=== PATIENT | female | born 1955 | race Caucasian/White ===

== ENCOUNTER 2017-07-02 15:48 | Inpatient (IN) | payer MEDICARE, MEDICAID ==
[~2017-07-02] VITALS: Ht 154.9 cm; Wt 70.9 kg
[~2017-07-02 15:48] MED LIST: ASPI-231 PO; CARI-277 PO; CITA20TA3 GT; CLOP75TA41 PO; FER325T PO; FURO20TA3 PO; GABA300C10 PO; LIDO5DIS21 TOP; LORA-352 PO; MORP30TA PO; NITR400A5 SL; NOR10T GT; SIMV-8 PO; ZOLP10TA6 PO
[2017-07-02 16:52] LABS: Eosinophils # (auto) 0.1 uL; Monocytes # (auto) 0.8 uL; Nucleated Red Blood Cells % 0.1 %
[2017-07-02 16:54] LABS: Basophils # (auto) 0 uL; Basophils % (auto) 0.3 % (0.0-2.0); Eosinophils % (auto) 0.9 % (0.0-7.0); Hematocrit 36.7 % (36.0-46.0); Lymphocytes # (auto) 2.5 uL; Lymphocytes % (auto) 24.6 % (10.0-50.0); Mean Corpuscular Hemoglobin 26.6 pg (28.0-32.0); Mean Corpuscular Hgb Conc. 32.6 g/dL (32.0-36.0); Mean Corpuscular Volume 81.5 fL (80.0-100.0); Monocytes % (auto) 7.9 % (0.0-12.0); Neutrophils # (auto) 6.6 uL; Neutrophils % (auto) 66.3 % (37.0-80.0); Platelet Count (auto) 367 10^3/uL (140-450); Red Blood Cells 4.51 10^6/uL (4.0-5.20); Red Cell Distribution Width 15.4 % (11.8-14.3)
[2017-07-02 17:06] LABS: Alanine Aminotransferase 74 U/L (13-56); Alkaline Phosphatase 151 U/L (45-117); Anion Gap 10 (5-15); Aspartate Aminotransferase 100 U/L (15-37); BUN/Creatinine Ratio 11.9; Bilirubin, Total 0.4 mg/dL (0.2-1.0); Blood Urea Nitrogen 10 mg/dL (7-18); Calcium 9.5 mg/dL (8.5-10.1); Carbon Dioxide 25 mmol/L (21-32); Chloride 104 mmol/L (98-107); GFR African American 89 mL/min; GFR Non-African American 74 mL/min; Glucose 120 mg/dL (74-106); Magnesium 2.2 mg/dL (1.6-2.6); Potassium 4.2 mmol/L (3.5-5.1); Sodium 139 mmol/L (136-145); Total Protein 7.7 g/dL (6.4-8.2)
[2017-07-02] MEDS ORDERED: LEVETIRACETAM 500 MG TAB PO ONE (23:00)
[2017-07-02] MEDS ORDERED: traMADol HCL 50 MG TAB PO PRN (23:00)
[2017-07-03 06:21] LABS: Basophils # (auto) 0.1 uL; Eosinophils # (auto) 0.2 uL; Eosinophils % (auto) 3.3 % (0.0-7.0); Lymphocytes # (auto) 2.7 uL; Monocytes # (auto) 0.5 uL; Nucleated Red Blood Cells % 0.1 %
[2017-07-03 06:23] LABS: Basophils % (auto) 1.2 % (0.0-2.0); Hematocrit 32.6 % (36.0-46.0); Hemoglobin 10.7 g/dL (12.2-16.2); Lymphocytes % (auto) 45.4 % (10.0-50.0); Mean Corpuscular Hemoglobin 26.8 pg (28.0-32.0); Mean Corpuscular Hgb Conc. 32.7 g/dL (32.0-36.0); Mean Corpuscular Volume 81.9 fL (80.0-100.0); Monocytes % (auto) 8.9 % (0.0-12.0); Neutrophils # (auto) 2.5 uL; Neutrophils % (auto) 41.2 % (37.0-80.0); Platelet Count (auto) 292 10^3/uL (140-450); Red Blood Cells 3.98 10^6/uL (4.0-5.20); Red Cell Distribution Width 15.1 % (11.8-14.3); White Blood Cell 5.9 10^3/uL (4.4-10.8)
[2017-07-03 06:43] LABS: Albumin 3.2 g/dL (3.4-5.0); BUN/Creatinine Ratio 23.9; Bilirubin, Total 0.3 mg/dL (0.2-1.0); Calcium 8.6 mg/dL (8.5-10.1); Total Protein 6.3 g/dL (6.4-8.2)
[2017-07-03] MEDS: FERROUS SULFATE 325 MG TAB PO SCH ×2 (08:05→18:00)
[2017-07-03 09:05] VITALS: BP 102/73
[2017-07-03 09:29] VITALS: BP 102/73
[2017-07-03] MEDS ORDERED: LEVE500T22 PO (09:43)
[2017-07-03] MEDS ORDERED: DIVA500T53 PO (09:43)
[2017-07-03] MEDS ORDERED: BACL10TA PO (09:43)
[2017-07-03] MEDS: ASPirin 81 mg TAB PO SCH (09:45)
[2017-07-03] MEDS: CLOPIDOGREL BISULFATE 75 MG TAB PO SCH (09:46)
[2017-07-03] MEDS: FAMOTIDINE 20 MG TAB PO SCH ×2 (09:46→21:24)
[2017-07-03] MEDS: FUROSEMIDE 20 MG TAB PO SCH (09:46)
[2017-07-03] MEDS: CITALOPRAM HYDROBR 20 MG TAB PO SCH (09:46)
[2017-07-03] MEDS: ENOXAPARIN SOD 40 MG/0.4 ML SYRINGE SC SCH (09:47)
[2017-07-03] MEDS: LEVETIRACETAM 500 MG TAB PO SCH ×2 (09:47→21:24)
[2017-07-03 09:58] LABS: Urine Bacteria FEW /hpf (None Seen); Urine Blood Negative /uL (Negative); Urine Mucus FEW (None Seen); Urine Specific Gravity 1.015 (1.001-1.035); Urine WBC 10 /hpf (0 - 5)
[2017-07-03 11:52] VITALS: BP 104/71
[2017-07-03] MEDS: HYDROcodone-ACET 5/325MG TAB PO PRN ×3 (12:05→22:25)
[2017-07-03] MEDS: CARISOPRODOL 350 MG TAB PO PRN (16:02)
[2017-07-03 17:00] VITALS: BP 113/70
[2017-07-03] MEDS ORDERED: LORazepam 2MG/ML-1ML VIAL IV PRN (21:00)
[2017-07-03 21:16] LABS: Cholesterol 180 mg/dL (< 200); HDL Cholesterol 75 mg/dL (40-59); LDL Cholesterol 101 mg/dL (< 100); Triglycerides 76 mg/dL (< 150)
[2017-07-03] MEDS: ATORVASTATIN 20 MG TAB PO SCH (21:24)
[2017-07-03] MEDS: TEMAZEPAM 15 MG CAP PO PRN (21:25)
[2017-07-03 21:54] VITALS: BP 94/60
[2017-07-04] MEDS: HYDROcodone-ACET 5/325MG TAB PO PRN ×4 (04:41→21:28)
[2017-07-04 05:00] VITALS: BP 88/55
[2017-07-04 06:20] VITALS: BP 94/57
[2017-07-04] MEDS: CARISOPRODOL 350 MG TAB PO PRN (08:05)
[2017-07-04] MEDS: FERROUS SULFATE 325 MG TAB PO SCH ×2 (08:05→17:37)
[2017-07-04 09:00] VITALS: BP 99/71
[2017-07-04] MEDS: CLOPIDOGREL BISULFATE 75 MG TAB PO SCH (09:47)
[2017-07-04] MEDS: ENOXAPARIN SOD 40 MG/0.4 ML SYRINGE SC SCH (09:47)
[2017-07-04] MEDS: LEVETIRACETAM 500 MG TAB PO SCH ×2 (09:48→21:27)
[2017-07-04] MEDS: ASPirin 81 mg TAB PO SCH (09:50)
[2017-07-04] MEDS: FUROSEMIDE 20 MG TAB PO SCH (09:50)
[2017-07-04] MEDS: FAMOTIDINE 20 MG TAB PO SCH ×2 (09:50→21:27)
[2017-07-04] MEDS: CITALOPRAM HYDROBR 20 MG TAB PO SCH (09:50)
[2017-07-04 13:00] VITALS: BP 104/64
[2017-07-04 17:00] VITALS: BP 91/56
[2017-07-04] MEDS: ATORVASTATIN 20 MG TAB PO SCH (21:27)
[2017-07-04 21:30] VITALS: BP 109/67
[2017-07-04] MEDS: TEMAZEPAM 15 MG CAP PO PRN (23:42)
[2017-07-05] MEDS: ONDANSETRON HCL 4 MG/2 ML VIAL IV PRN ×2 (02:37→13:53)
[2017-07-05] MEDS: MORPHINE SULFATE 4 MG/ML SYR/VIAL IV PRN (02:38)
[2017-07-05 04:44] VITALS: BP 92/53
[2017-07-05] MEDS: HYDROcodone-ACET 5/325MG TAB PO PRN ×3 (05:54→22:05)
[2017-07-05] MEDS: FERROUS SULFATE 325 MG TAB PO SCH ×2 (08:33→18:00)
[2017-07-05 09:00] VITALS: BP 90/47
[2017-07-05] MEDS: FUROSEMIDE 20 MG TAB PO SCH (10:00)
[2017-07-05] MEDS: CLOPIDOGREL BISULFATE 75 MG TAB PO SCH (10:28)
[2017-07-05] MEDS: CITALOPRAM HYDROBR 20 MG TAB PO SCH (10:29)
[2017-07-05] MEDS: LEVETIRACETAM 500 MG TAB PO SCH ×2 (10:29→22:05)
[2017-07-05] MEDS: FAMOTIDINE 20 MG TAB PO SCH ×2 (10:29→22:05)
[2017-07-05] MEDS: ASPirin 81 mg TAB PO SCH (10:30)
[2017-07-05] MEDS: ENOXAPARIN SOD 40 MG/0.4 ML SYRINGE SC SCH (10:31)
[2017-07-05 13:00] VITALS: BP 97/57
[2017-07-05] MEDS: NITROGLYCERIN 0.4 MG SL TAB SL PRN ×3 (13:24→13:41)
[2017-07-05 15:11] LABS: Prothrombin Time 10.9 sec (9.37-12.3)
[2017-07-05 17:04] VITALS: BP 94/69
[2017-07-05 22:00] VITALS: BP 103/66
[2017-07-05] MEDS: ATORVASTATIN 20 MG TAB PO SCH (22:02)
[2017-07-05] MEDS: TEMAZEPAM 15 MG CAP PO PRN (22:06)
[2017-07-06] MEDS: MORPHINE SULFATE 4 MG/ML SYR/VIAL IV PRN ×2 (01:20→08:31)
[2017-07-06] MEDS: NITROGLYCERIN 0.4 MG SL TAB SL PRN ×2 (01:21→01:37)
[2017-07-06 05:47] VITALS: BP 89/62
[2017-07-06 05:51] LABS: Basophils # (auto) 0 uL; Basophils % (auto) 0.9 % (0.0-2.0); Hemoglobin 11.6 g/dL (12.2-16.2); Lymphocytes # (auto) 2.5 uL; Mean Corpuscular Hemoglobin 26.5 pg (28.0-32.0); Mean Corpuscular Hgb Conc. 31.5 g/dL (32.0-36.0); Monocytes # (auto) 0.4 uL; Monocytes % (auto) 8.2 % (0.0-12.0); Neutrophils # (auto) 1.4 uL; Red Cell Distribution Width 15.1 % (11.8-14.3)
[2017-07-06 05:54] LABS: Eosinophils # (auto) 0.3 uL; Eosinophils % (auto) 5.8 % (0.0-7.0); Hematocrit 36.8 % (36.0-46.0); Lymphocytes % (auto) 53.9 % (10.0-50.0); Mean Corpuscular Volume 83.9 fL (80.0-100.0); Neutrophils % (auto) 31.2 % (37.0-80.0); Nucleated Red Blood Cells % 0.1 %; Platelet Count (auto) 316 10^3/uL (140-450); Red Blood Cells 4.38 10^6/uL (4.0-5.20); White Blood Cell 4.6 10^3/uL (4.4-10.8)
[2017-07-06 06:16] LABS: Alanine Aminotransferase 35 U/L (13-56); Albumin 3.1 g/dL (3.4-5.0); Anion Gap 8 (5-15); Aspartate Aminotransferase 40 U/L (15-37); BUN/Creatinine Ratio 17.6; Blood Urea Nitrogen 12 mg/dL (7-18); Calcium 8.2 mg/dL (8.5-10.1); Carbon Dioxide 24 mmol/L (21-32); Chloride 106 mmol/L (98-107); GFR African American 114 mL/min; GFR Non-African American 94 mL/min; Glucose 85 mg/dL (74-106); Potassium 4.3 mmol/L (3.5-5.1); Sodium 138 mmol/L (136-145)
[2017-07-06 06:18] LABS: Alkaline Phosphatase 120 U/L (45-117); Bilirubin, Total 0.2 mg/dL (0.2-1.0); Total Protein 6.4 g/dL (6.4-8.2)
[2017-07-06 08:00] VITALS: BP 92/54
[2017-07-06] MEDS: FERROUS SULFATE 325 MG TAB PO SCH ×2 (08:00→19:50)
[2017-07-06] MEDS: CLOPIDOGREL BISULFATE 75 MG TAB PO SCH ×2 (08:32→09:34)
[2017-07-06] MEDS: ASPirin 81 mg TAB PO SCH ×2 (08:32→09:34)
[2017-07-06] MEDS: ENOXAPARIN SOD 40 MG/0.4 ML SYRINGE SC SCH (08:33)
[2017-07-06 09:00] VITALS: BP 94/60
[2017-07-06] MEDS: FAMOTIDINE 20 MG TAB PO SCH ×2 (09:32→22:47)
[2017-07-06] MEDS: CARISOPRODOL 350 MG TAB PO PRN (09:32)
[2017-07-06] MEDS: LEVETIRACETAM 500 MG TAB PO SCH ×2 (09:32→22:47)
[2017-07-06] MEDS: CITALOPRAM HYDROBR 20 MG TAB PO SCH (09:33)
[2017-07-06] MEDS: FUROSEMIDE 20 MG TAB PO SCH (09:34)
[2017-07-06 12:00] VITALS: BP 91/58
[2017-07-06] MEDS ORDERED: LIDOCAINE HCL 2 %PF INJ 10ML AMP IJ ONE (13:56)
[2017-07-06] MEDS ORDERED: IOHEXOL 350 MG/ML 100ML IJ ONE (13:56)
[2017-07-06] MEDS ORDERED: MIDAZOLAM HCL 1MG/1ML-2 ML VIAL ONE (14:18)
[2017-07-06] MEDS ORDERED: fentaNYL CITRATE 100 MCG/2 ML VL ONE (14:18)
[2017-07-06] MEDS ORDERED: SODIUM CHL 0.9% 50 ML ONE (14:19)
[2017-07-06] MEDS ORDERED: ANGIOMAX 250 MG VIAL IV ONE (14:19)
[2017-07-06] MEDS ORDERED: CLOPIDOGREL 300 MG TAB ONE (14:41)
[2017-07-06] MEDS: HYDROcodone-ACET 5/325MG TAB PO PRN ×2 (17:09→23:08)
[2017-07-06] MEDS: TEMAZEPAM 15 MG CAP PO PRN (22:47)
[2017-07-06] MEDS: ATORVASTATIN 20 MG TAB PO SCH (22:47)
[2017-07-07 04:27] VITALS: BP 91/59
[2017-07-07] MEDS: FERROUS SULFATE 325 MG TAB PO SCH ×2 (08:16→18:20)
[2017-07-07] MEDS: HYDROcodone-ACET 5/325MG TAB PO PRN ×2 (08:16→16:15)
[2017-07-07 09:00] VITALS: BP 90/68
[2017-07-07] MEDS: CITALOPRAM HYDROBR 20 MG TAB PO SCH (10:00)
[2017-07-07] MEDS: ASPirin 81 mg TAB PO SCH (10:00)
[2017-07-07] MEDS: CLOPIDOGREL BISULFATE 75 MG TAB PO SCH (10:00)
[2017-07-07] MEDS: LEVETIRACETAM 500 MG TAB PO SCH ×2 (10:00→21:32)
[2017-07-07] MEDS: FAMOTIDINE 20 MG TAB PO SCH ×2 (10:02→21:32)
[2017-07-07] MEDS: FUROSEMIDE 20 MG TAB PO SCH (10:03)
[2017-07-07] MEDS: ENOXAPARIN SOD 40 MG/0.4 ML SYRINGE SC SCH (10:04)
[2017-07-07] MEDS: CARISOPRODOL 350 MG TAB PO PRN (10:04)
[2017-07-07 12:00] VITALS: BP 94/63
[2017-07-07] MEDS ORDERED: KETOROLAC TROMETH 30 MG/ML 1ML VIAL IV PRN (15:00)
[2017-07-07 16:00] VITALS: BP 97/72
[2017-07-07] MEDS: ONDANSETRON HCL 4 MG/2 ML VIAL IV PRN (20:21)
[2017-07-07] MEDS: ATORVASTATIN 20 MG TAB PO SCH (21:32)
[2017-07-07] MEDS: TEMAZEPAM 15 MG CAP PO PRN (21:33)
[2017-07-07 22:00] VITALS: BP 104/58
[2017-07-08] MEDS: HYDROcodone-ACET 5/325MG TAB PO PRN ×2 (03:06→13:04)
[2017-07-08 05:00] VITALS: BP 112/77
[2017-07-08] MEDS: FERROUS SULFATE 325 MG TAB PO SCH (08:51)
[2017-07-08] MEDS: FAMOTIDINE 20 MG TAB PO SCH (08:56)
[2017-07-08] MEDS: ENOXAPARIN SOD 40 MG/0.4 ML SYRINGE SC SCH (08:56)
[2017-07-08] MEDS: CITALOPRAM HYDROBR 20 MG TAB PO SCH (08:57)
[2017-07-08] MEDS: CLOPIDOGREL BISULFATE 75 MG TAB PO SCH (08:58)
[2017-07-08] MEDS: ASPirin 81 mg TAB PO SCH (08:58)
[2017-07-08] MEDS: LEVETIRACETAM 500 MG TAB PO SCH (08:58)
[2017-07-08] MEDS: FUROSEMIDE 20 MG TAB PO SCH (09:00)
[2017-07-08 09:18] VITALS: BP 115/69
[2017-07-08 12:34] VITALS: BP 109/75
[2017-07-08] MEDS ORDERED: DIVA250T6 PO (15:10)
[2017-07-08] MEDS ORDERED: KEP500T PO (15:10)
[2017-07-08 16:06] VITALS: BP 109/75
== END 2017-07-08 14:38 | disposition home or self-care (01) | DRG 247 ==
LOC: ER 15:48 → TELE 15:49 → TELE-WESTW 07-03 08:06
PROVIDERS: ADMIT Nurse Practitioner; ATTEND Internal Medicine Pulmonary Disease
PROC: 027034Z Dilation of Coronary Artery, One Artery with Drug-eluting Intraluminal Device, Percutaneous Approach (ICD-10-PCS; principal; 2017-07-06)
PROC: B240ZZ3 Ultrasonography of Single Coronary Artery, Intravascular (ICD-10-PCS; 2017-07-06)
PROC: 4A023N7 Measurement of Cardiac Sampling and Pressure, Left Heart, Percutaneous Approach (ICD-10-PCS; 2017-07-06)
PROC: B2111ZZ Fluoroscopy of Multiple Coronary Arteries using Low Osmolar Contrast (ICD-10-PCS; 2017-07-06)
PROC: B2151ZZ Fluoroscopy of Left Heart using Low Osmolar Contrast (ICD-10-PCS; 2017-07-06)
DX: I25.110 Atherosclerotic heart disease of native coronary artery with unstable angina pectoris (principal); E44.0 Moderate protein-calorie malnutrition; G40.409 Other generalized epilepsy and epileptic syndromes, not intractable, without status epilepticus; K74.60 Unspecified cirrhosis of liver; G62.9 Polyneuropathy, unspecified; S71.011A Laceration without foreign body, right hip, initial encounter; S71.012A Laceration without foreign body, left hip, initial encounter; S00.83XA Contusion of other part of head, initial encounter; D64.9 Anemia, unspecified; W18.39XA Other fall on same level, initial encounter; B19.20 Unspecified viral hepatitis C without hepatic coma; E78.5 Hyperlipidemia, unspecified; G89.4 Chronic pain syndrome; E66.9 Obesity, unspecified; I10 Essential (primary) hypertension; G47.00 Insomnia, unspecified; S00.31XA Abrasion of nose, initial encounter; J45.909 Unspecified asthma, uncomplicated; F11.90 Opioid use, unspecified, uncomplicated; K21.9 Gastro-esophageal reflux disease without esophagitis; Z79.82 Long term (current) use of aspirin; Z79.899 Other long term (current) drug therapy; I25.2 Old myocardial infarction; Z83.3 Family history of diabetes mellitus; Z90.49 Acquired absence of other specified parts of digestive tract; Z90.710 Acquired absence of both cervix and uterus; Z95.0 Presence of cardiac pacemaker; Z95.5 Presence of coronary angioplasty implant and graft; Z98.1 Arthrodesis status; Z98.84 Bariatric surgery status; Z68.29 Body mass index [BMI] 29.0-29.9, adult; Y93.89 Activity, other specified; Y92.89 Other specified places as the place of occurrence of the external cause; Y99.8 Other external cause status; Z90.89 Acquired absence of other organs; Z88.1 Allergy status to other antibiotic agents; Z88.8 Allergy status to other drugs, medicaments and biological substances; Z88.6 Allergy status to analgesic agent; Z91.018 Allergy to other foods; Z80.8 Family history of malignant neoplasm of other organs or systems; Z71.3 Dietary counseling and surveillance
CPT/HCPCS: 36415; 70450; 70480; 70486; 71045; 80053; 80061; 81001; 83735; 84484; 85025; 85610; 92928; 92978; 93005; 93306; 93458; 93886; 95819; 99152; C1874; J1885; J2250; J2405

== ENCOUNTER 2017-07-15 15:51 | Inpatient (IN) | payer MEDICARE, MEDICAID ==
[~2017-07-15] VITALS: Ht 154.9 cm; Wt 73.4 kg
[~2017-07-15 15:51] MED LIST changes: +BACL10TA PO; +DIVA250T6 PO; +KEP500T PO
[2017-07-15 16:45] LABS: Eosinophils # (auto) 0 uL; Lymphocytes # (auto) 1.1 uL; Monocytes # (auto) 0.3 uL; Nucleated Red Blood Cells % 0.1 %; White Blood Cell 7.6 10^3/uL (4.4-10.8)
[2017-07-15 16:46] LABS: Basophils # (auto) 0 uL; Basophils % (auto) 0.5 % (0.0-2.0); Eosinophils % (auto) 0.6 % (0.0-7.0); Hematocrit 40.3 % (36.0-46.0); Lymphocytes % (auto) 14.6 % (10.0-50.0); Mean Corpuscular Hemoglobin 27.3 pg (28.0-32.0); Mean Corpuscular Hgb Conc. 32.3 g/dL (32.0-36.0); Mean Corpuscular Volume 84.3 fL (80.0-100.0); Monocytes % (auto) 4.6 % (0.0-12.0); Neutrophils % (auto) 79.7 % (37.0-80.0); Platelet Count (auto) 328 10^3/uL (140-450); Red Blood Cells 4.78 10^6/uL (4.0-5.20); Red Cell Distribution Width 16.7 % (11.8-14.3)
[2017-07-15 17:06] LABS: Alanine Aminotransferase 15 U/L (13-56); Albumin 4.1 g/dL (3.4-5.0); Alkaline Phosphatase 109 U/L (45-117); Anion Gap 8 (5-15); Aspartate Aminotransferase 10 U/L (15-37); BUN/Creatinine Ratio 9.7; Bilirubin, Total 0.3 mg/dL (0.2-1.0); Blood Alcohol < 3.0 mg/dL (0-5); Blood Urea Nitrogen 7 mg/dL (7-18); Carbon Dioxide 25 mmol/L (21-32); Chloride 113 mmol/L (98-107); GFR African American 106 mL/min; GFR Non-African American 88 mL/min; Glucose 112 mg/dL (74-106); Potassium 3.9 mmol/L (3.5-5.1); Sodium 146 mmol/L (136-145); Total Protein 7.3 g/dL (6.4-8.2)
[2017-07-15] MEDS ORDERED: SODIUM CHLORIDE 0.9% 1,000 ML IV ONE (18:45)
[2017-07-15 19:03] LABS: Urine Bacteria FEW /hpf (None Seen); Urine Blood Negative /uL (Negative); Urine Hyaline Cast FEW /lpf (0 - 2); Urine Mucus FEW (None Seen); Urine Specific Gravity 1.019 (1.001-1.035); Urine WBC 6 /hpf (0 - 5)
[2017-07-15 19:13] LABS: Alcohol, Urine < 3.0 mg/dL (0-5); Amphetamine Screen, Urine NEGATIVE (NEGATIVE); Barbiturate Scree,Urine NEGATIVE (NEGATIVE); Benzodiazephine Screen, Urine NEGATIVE (NEGATIVE); Cannabinoid Screen, Urine NEGATIVE (NEGATIVE); Cocaine Screen, Urine NEGATIVE (NEGATIVE); Opiate Scree,Urine NEGATIVE (NEGATIVE); Phencyclidine Screen, Urine NEGATIVE (NEGATIVE)
[2017-07-15] MEDS ORDERED: cefTRIAXone SOD 1,000 MG VL IM ONE (22:45)
[2017-07-16] MEDS ORDERED: ACETAMINOPHEN 500 MG TAB PO PRN
[2017-07-16] MEDS ORDERED: ONDANSETRON HCL 4 MG/2 ML VIAL IV PRN
[2017-07-16] MEDS ORDERED: cefTRIAXone 1GM/10ml IVPUSH 10 ML IV ONE (00:30)
[2017-07-16 03:18] VITALS: BP 133/80
[2017-07-16] MEDS: MORPHINE SULFATE 4 MG/ML SYR/VIAL IV PRN ×5 (03:47→22:46)
[2017-07-16] MEDS ORDERED: INFLUENZA QUAD 2017-2018 0.5 ML SYRG IM ONE (04:45)
[2017-07-16 05:00] VITALS: BP 102/62
[2017-07-16 06:09] LABS: Basophils # (auto) 0 uL; Basophils % (auto) 0.5 % (0.0-2.0); Eosinophils # (auto) 0.1 uL; Eosinophils % (auto) 1.5 % (0.0-7.0); Hematocrit 32.5 % (36.0-46.0); Hemoglobin 10.4 g/dL (12.2-16.2); Lymphocytes # (auto) 1.7 uL; Lymphocytes % (auto) 29.2 % (10.0-50.0); Mean Corpuscular Volume 84.4 fL (80.0-100.0); Monocytes # (auto) 0.4 uL; Monocytes % (auto) 7.8 % (0.0-12.0); Neutrophils # (auto) 3.5 uL; Nucleated Red Blood Cells % 0.1 %; Platelet Count (auto) 276 10^3/uL (140-450); Red Blood Cells 3.85 10^6/uL (4.0-5.20); Red Cell Distribution Width 17.2 % (11.8-14.3); White Blood Cell 5.7 10^3/uL (4.4-10.8)
[2017-07-16 06:13] LABS: BUN/Creatinine Ratio 15.8; Calcium 8.1 mg/dL (8.5-10.1); Potassium 3.8 mmol/L (3.5-5.1)
[2017-07-16] MEDS: HYDROcodone-ACET 5/325MG TAB PO PRN ×2 (06:28→11:09)
[2017-07-16] MEDS: GABAPENTIN 300 MG CAP PO SCH ×3 (06:40→22:01)
[2017-07-16 09:00] VITALS: BP 108/56
[2017-07-16] MEDS: ASPirin-EC 81 mg tab PO SCH (11:08)
[2017-07-16] MEDS: CLOPIDOGREL BISULFATE 75 MG TAB PO SCH (11:08)
[2017-07-16] MEDS: LEVETIRACETAM 500 MG TAB PO SCH ×2 (11:08→22:00)
[2017-07-16 13:00] VITALS: BP 100/69
[2017-07-16 17:03] VITALS: BP 95/53
[2017-07-16 21:27] VITALS: BP 101/68
[2017-07-16] MEDS: cefTRIAXone 1GM/10ml IVPUSH 10 ML IV SCH (22:00)
[2017-07-17] MEDS: MORPHINE SULFATE 4 MG/ML SYR/VIAL IV PRN ×2 (03:06→17:17)
[2017-07-17 05:08] VITALS: BP 91/49
[2017-07-17] MEDS: GABAPENTIN 300 MG CAP PO SCH ×3 (06:31→23:08)
[2017-07-17 06:59] LABS: BUN/Creatinine Ratio 14.9; Calcium 7.9 mg/dL (8.5-10.1)
[2017-07-17 07:48] LABS: Basophils # (auto) 0 uL; Basophils % (auto) 0.7 % (0.0-2.0); Eosinophils # (auto) 0.2 uL; Eosinophils % (auto) 3.8 % (0.0-7.0); Hematocrit 28.7 % (36.0-46.0); Hemoglobin 9.2 g/dL (12.2-16.2); Lymphocytes % (auto) 38.1 % (10.0-50.0); Mean Corpuscular Hemoglobin 27.1 pg (28.0-32.0); Mean Corpuscular Hgb Conc. 32.2 g/dL (32.0-36.0); Mean Corpuscular Volume 84.3 fL (80.0-100.0); Monocytes # (auto) 0.5 uL; Monocytes % (auto) 9.3 % (0.0-12.0); Neutrophils # (auto) 2.5 uL; Neutrophils % (auto) 48.1 % (37.0-80.0); Nucleated Red Blood Cells % 0.1 %; Platelet Count (auto) 238 10^3/uL (140-450); Red Cell Distribution Width 16.9 % (11.8-14.3); White Blood Cell 5.1 10^3/uL (4.4-10.8)
[2017-07-17 09:00] VITALS: BP 110/50
[2017-07-17] MEDS: ASPirin-EC 81 mg tab PO SCH (09:29)
[2017-07-17] MEDS: CLOPIDOGREL BISULFATE 75 MG TAB PO SCH (09:29)
[2017-07-17] MEDS: LEVETIRACETAM 500 MG TAB PO SCH ×2 (09:30→23:08)
[2017-07-17 13:00] VITALS: BP 132/73
[2017-07-17 17:00] VITALS: BP 94/59
[2017-07-17 20:00] VITALS: BP 101/66
[2017-07-17 21:38] VITALS: BP 101/6
[2017-07-17] MEDS: cefTRIAXone 1GM/10ml IVPUSH 10 ML IV SCH (23:08)
[2017-07-18] VITALS (10 sets, daily range): BP systolic 68–124; BP diastolic 34–73
[2017-07-18] MEDS: MORPHINE SULFATE 4 MG/ML SYR/VIAL IV PRN ×4 (01:14→22:10)
[2017-07-18] MEDS ORDERED: TEMAZEPAM 15 MG CAP PO ONE (01:45)
[2017-07-18] MEDS ORDERED: LACTULOSE 20Gm/30ML SOLN PO PRN (01:45)
[2017-07-18] MEDS: GABAPENTIN 300 MG CAP PO SCH ×3 (06:00→22:37)
[2017-07-18] MEDS ORDERED: SODIUM CHLORIDE 0.9% 500 ML IV ONE (06:15)
[2017-07-18] MEDS: CLOPIDOGREL BISULFATE 75 MG TAB PO SCH (10:50)
[2017-07-18] MEDS: LEVETIRACETAM 500 MG TAB PO SCH ×2 (10:50→22:37)
[2017-07-18] MEDS: ASPirin-EC 81 mg tab PO SCH (10:51)
[2017-07-18] MEDS ORDERED: LACTULOSE 20Gm/30ML SOLN PO ONE (13:15)
[2017-07-18 13:44] LABS: Basophils # (auto) 0.1 uL; Basophils % (auto) 1.1 % (0.0-2.0); Eosinophils # (auto) 0.2 uL; Eosinophils % (auto) 4.9 % (0.0-7.0); Hematocrit 30.9 % (36.0-46.0); Hemoglobin 9.8 g/dL (12.2-16.2); Lymphocytes # (auto) 1.9 uL; Lymphocytes % (auto) 42.9 % (10.0-50.0); Mean Corpuscular Hemoglobin 27.1 pg (28.0-32.0); Mean Corpuscular Hgb Conc. 31.6 g/dL (32.0-36.0); Mean Corpuscular Volume 85.7 fL (80.0-100.0); Monocytes # (auto) 0.4 uL; Monocytes % (auto) 9.1 % (0.0-12.0); Neutrophils # (auto) 1.8 uL; Nucleated Red Blood Cells % 0.2 %; Platelet Count (auto) 247 10^3/uL (140-450); Red Cell Distribution Width 17.2 % (11.8-14.3); White Blood Cell 4.4 10^3/uL (4.4-10.8)
[2017-07-18] MEDS: cefTRIAXone 1GM/10ml IVPUSH 10 ML IV SCH (22:37)
[2017-07-19] MEDS: MORPHINE SULFATE 4 MG/ML SYR/VIAL IV PRN ×3 (02:21→11:09)
[2017-07-19 05:43] VITALS: BP 110/74
[2017-07-19] MEDS: GABAPENTIN 300 MG CAP PO SCH ×2 (06:04→14:00)
[2017-07-19 08:00] VITALS: BP 110/69
[2017-07-19 09:00] VITALS: BP 110/69
[2017-07-19] MEDS: CLOPIDOGREL BISULFATE 75 MG TAB PO SCH (10:00)
[2017-07-19] MEDS: ASPirin-EC 81 mg tab PO SCH (10:03)
[2017-07-19] MEDS: LEVETIRACETAM 500 MG TAB PO SCH (10:03)
[2017-07-19 13:00] VITALS: BP 123/74
[2017-07-19 13:44] VITALS: BP 110/69
== END 2017-07-19 14:25 | disposition home or self-care (01) | DRG 689 ==
LOC: ER 15:54 → WEST WING 15:55
PROVIDERS: ADMIT Nurse Practitioner Family; ATTEND Internal Medicine Pulmonary Disease
PROC: 3E0234Z Introduction of Serum, Toxoid and Vaccine into Muscle, Percutaneous Approach (ICD-10-PCS; principal; 2017-07-16)
DX: N39.0 Urinary tract infection, site not specified (principal); G92 Toxic encephalopathy; E87.0 Hyperosmolality and hypernatremia; I11.0 Hypertensive heart disease with heart failure; I50.9 Heart failure, unspecified; E44.1 Mild protein-calorie malnutrition; R56.9 Unspecified convulsions; S09.90XA Unspecified injury of head, initial encounter; R55 Syncope and collapse; W19.XXXA Unspecified fall, initial encounter; D64.9 Anemia, unspecified; B19.20 Unspecified viral hepatitis C without hepatic coma; E86.9 Volume depletion, unspecified; F32.9 Major depressive disorder, single episode, unspecified; S70.02XA Contusion of left hip, initial encounter; I25.10 Atherosclerotic heart disease of native coronary artery without angina pectoris; G89.29 Other chronic pain; M54.5 Low back pain; K59.00 Constipation, unspecified; Y92.009 Unspecified place in unspecified non-institutional (private) residence as the place of occurrence of the external cause; Z83.3 Family history of diabetes mellitus; Z79.899 Other long term (current) drug therapy; Z90.710 Acquired absence of both cervix and uterus; Z90.49 Acquired absence of other specified parts of digestive tract; Z91.14 Patient's other noncompliance with medication regimen; Z98.84 Bariatric surgery status; Z95.0 Presence of cardiac pacemaker; Z68.30 Body mass index [BMI] 30.0-30.9, adult; Z88.1 Allergy status to other antibiotic agents; Z88.5 Allergy status to narcotic agent; Z23 Encounter for immunization
CPT/HCPCS: 36415; 70450; 71045; 72125; 72192; 72220; 80048; 80053; 80307; 80320; 81001; 82270; 82962; 84484; 85025; 87081; 87086; 93005; 96374; 96375; J0696; J2405

== ENCOUNTER 2017-08-03 14:30 | Emergency (ER) | payer MEDICARE, MEDICAID ==
[~2017-08-03] VITALS: Ht 157.5 cm; Wt 70.3 kg
[2017-08-03 15:42] VITALS: BP 149/95
[2017-08-03 16:37] LABS: Basophils # (auto) 0 uL; Basophils % (auto) 0.8 % (0.0-2.0); Eosinophils # (auto) 0.1 uL; Eosinophils % (auto) 2.9 % (0.0-7.0); Hematocrit 34.8 % (36.0-46.0); Hemoglobin 11.1 g/dL (12.2-16.2); Lymphocytes # (auto) 1.9 uL; Lymphocytes % (auto) 41.2 % (10.0-50.0); Mean Corpuscular Hemoglobin 27.6 pg (28.0-32.0); Mean Corpuscular Hgb Conc. 31.9 g/dL (32.0-36.0); Mean Corpuscular Volume 86.6 fL (80.0-100.0); Monocytes # (auto) 0.4 uL; Monocytes % (auto) 9.4 % (0.0-12.0); Neutrophils # (auto) 2.1 uL; Neutrophils % (auto) 45.7 % (37.0-80.0); Nucleated Red Blood Cells % 0.1 %; Platelet Count (auto) 218 10^3/uL (140-450); Red Blood Cells 4.01 10^6/uL (4.0-5.20); Red Cell Distribution Width 18.1 % (11.8-14.3); White Blood Cell 4.5 10^3/uL (4.4-10.8)
[2017-08-03 16:50] LABS: Albumin 3.4 g/dL (3.4-5.0); Anion Gap 9 (5-15); BUN/Creatinine Ratio 12.7; Blood Urea Nitrogen 10 mg/dL (7-18); Calcium 8.2 mg/dL (8.5-10.1); Carbon Dioxide 23 mmol/L (21-32); Chloride 110 mmol/L (98-107); GFR African American 95 mL/min; GFR Non-African American 79 mL/min; Glucose 81 mg/dL (74-106); Potassium 3.7 mmol/L (3.5-5.1); Sodium 142 mmol/L (136-145)
[2017-08-03 16:55] LABS: Alanine Aminotransferase 10 U/L (13-56); Alkaline Phosphatase 92 U/L (45-117); Aspartate Aminotransferase 14 U/L (15-37); Bilirubin, Total 0.5 mg/dL (0.2-1.0); Total Protein 6.7 g/dL (6.4-8.2)
== END 2017-08-03 19:25 | disposition home or self-care (01) ==
LOC: EDBD 14:30 → ER 14:41
DX: S09.90XA Unspecified injury of head, initial encounter (principal); J45.909 Unspecified asthma, uncomplicated; I25.10 Atherosclerotic heart disease of native coronary artery without angina pectoris; I11.0 Hypertensive heart disease with heart failure; I50.9 Heart failure, unspecified; E78.5 Hyperlipidemia, unspecified; R42 Dizziness and giddiness; I25.2 Old myocardial infarction; Z90.49 Acquired absence of other specified parts of digestive tract; Z90.710 Acquired absence of both cervix and uterus; Z95.0 Presence of cardiac pacemaker; Z88.1 Allergy status to other antibiotic agents; Z88.6 Allergy status to analgesic agent; Z88.8 Allergy status to other drugs, medicaments and biological substances; W18.39XA Other fall on same level, initial encounter; Y93.01 Activity, walking, marching and hiking; Y92.89 Other specified places as the place of occurrence of the external cause; Y99.8 Other external cause status
CPT/HCPCS: 36415; 70450; 80053; 82962; 84484; 85025; 93005

== ENCOUNTER 2017-08-29 16:20 | Inpatient (IN) | payer MEDICARE, MEDICAID ==
[~2017-08-29] VITALS: Ht 154.9 cm; Wt 76.5 kg
[~2017-08-29 16:20] MED LIST changes: -CITA20TA3 GT; +CYCL5TAB PO; -DIVA250T6 PO; +DIVA500T53 PO; -FER325T PO; -FURO20TA3 PO; -KEP500T PO; +LEVE500T22 PO; -LIDO5DIS21 TOP; -LORA-352 PO; +LORA-622 PO; +LORA-655 PO; +MELO1TAB56 PO; -MORP30TA PO; -NITR400A5 SL; -NOR10T GT; +NOR10T PO
[2017-08-29] MEDS ORDERED: SODIUM CHLORIDE 0.9% 1,000 ML IV ONE (16:41)
[2017-08-29] MEDS ORDERED: MORPHINE SULFATE 4 MG/ML SYR/VIAL IV ONE (16:45)
[2017-08-29] MEDS ORDERED: METOCLOPRAMIDE HCL 5MG/ml INJ 2ml VIAL IV ONE (16:45)
[2017-08-29 17:20] LABS: Basophils # (auto) 0 uL; Basophils % (auto) 0.9 % (0.0-2.0); Eosinophils # (auto) 0.2 uL; Eosinophils % (auto) 3.5 % (0.0-7.0); Hematocrit 30.1 % (36.0-46.0); Hemoglobin 9.9 g/dL (12.2-16.2); Lymphocytes # (auto) 1.7 uL; Lymphocytes % (auto) 39.1 % (10.0-50.0); Mean Corpuscular Hemoglobin 27.7 pg (28.0-32.0); Mean Corpuscular Hgb Conc. 32.9 g/dL (32.0-36.0); Mean Corpuscular Volume 84.2 fL (80.0-100.0); Monocytes # (auto) 0.4 uL; Monocytes % (auto) 8.6 % (0.0-12.0); Neutrophils # (auto) 2.1 uL; Neutrophils % (auto) 47.9 % (37.0-80.0); Nucleated Red Blood Cells % 0.1 %; Platelet Count (auto) 230 10^3/uL (140-450); Red Blood Cells 3.57 10^6/uL (4.0-5.20); Red Cell Distribution Width 17.6 % (11.8-14.3); White Blood Cell 4.5 10^3/uL (4.4-10.8)
[2017-08-29 17:35] LABS: Calcium 7.8 mg/dL (8.5-10.1); Magnesium 1.9 mg/dL (1.6-2.6); Potassium 4.5 mmol/L (3.5-5.1)
[2017-08-29 17:37] LABS: BUN/Creatinine Ratio 16.7
[2017-08-29 17:41] LABS: Bilirubin, Total 0.3 mg/dL (0.2-1.0); Total Protein 6.2 g/dL (6.4-8.2)
[2017-08-29] MEDS: ATORVASTATIN 20 MG TAB PO SCH (22:00)
[2017-08-29] MEDS: LEVETIRACETAM 500 MG TAB PO SCH (22:00)
[2017-08-29] MEDS: GABAPENTIN 300 MG CAP PO SCH (22:00)
[2017-08-29] MEDS ORDERED: ONDANSETRON HCL 4 MG/2 ML VIAL IV PRN (22:15)
[2017-08-29] MEDS ORDERED: NITROGLYCERIN 0.4 MG SL TAB SL PRN (22:15)
[2017-08-29] MEDS ORDERED: ACETAMINOPHEN 325 MG TAB PO PRN (22:15)
[2017-08-29] MEDS ORDERED: MORPHINE SULFATE 4 MG/ML SYR/VIAL IV PRN (22:15)
[2017-08-30 00:10] VITALS: BP 111/74
[2017-08-30] MEDS: TEMAZEPAM 15 MG CAP PO PRN ×2 (01:01→23:20)
[2017-08-30 01:40] LABS: Urine Blood Negative /uL (Negative); Urine Specific Gravity 1.008 (1.001-1.035)
[2017-08-30 01:41] LABS: Urine Bacteria FEW /hpf (None Seen); Urine WBC 2 /hpf (0 - 5)
[2017-08-30] MEDS ORDERED: FURO20TA3 PO (01:42)
[2017-08-30] MEDS ORDERED: SIMV-8 PO (01:42)
[2017-08-30] MEDS ORDERED: CLOP75TA28 PO (01:42)
[2017-08-30] MEDS ORDERED: LORA-655 PO (01:42)
[2017-08-30 05:50] VITALS: BP 92/65
[2017-08-30 06:58] LABS: Basophils # (auto) 0 uL; Eosinophils # (auto) 0.2 uL; Mean Corpuscular Volume 85.4 fL (80.0-100.0); Monocytes # (auto) 0.4 uL; Neutrophils # (auto) 2.1 uL
[2017-08-30 07:00] LABS: Basophils % (auto) 0.7 % (0.0-2.0); Eosinophils % (auto) 3.9 % (0.0-7.0); Hemoglobin 10.6 g/dL (12.2-16.2); Lymphocytes # (auto) 2.3 uL; Lymphocytes % (auto) 46.1 % (10.0-50.0); Mean Corpuscular Hemoglobin 27.4 pg (28.0-32.0); Mean Corpuscular Hgb Conc. 32.1 g/dL (32.0-36.0); Monocytes % (auto) 7.7 % (0.0-12.0); Neutrophils % (auto) 41.6 % (37.0-80.0); Nucleated Red Blood Cells % 0.2 %; Platelet Count (auto) 205 10^3/uL (140-450); Red Blood Cells 3.87 10^6/uL (4.0-5.20); Red Cell Distribution Width 17.3 % (11.8-14.3); White Blood Cell 5.1 10^3/uL (4.4-10.8)
[2017-08-30 07:14] LABS: Potassium 4.2 mmol/L (3.5-5.1)
[2017-08-30 07:20] LABS: BUN/Creatinine Ratio 16.9; Calcium 8.6 mg/dL (8.5-10.1)
[2017-08-30 07:28] LABS: Bilirubin, Total 0.4 mg/dL (0.2-1.0); Total Protein 6.1 g/dL (6.4-8.2)
[2017-08-30 07:52] VITALS: BP 109/57
[2017-08-30] MEDS: HYDROcodone-ACET 5/325MG TAB PO PRN ×3 (07:54→20:23)
[2017-08-30] MEDS: GABAPENTIN 300 MG CAP PO SCH ×2 (10:18→21:37)
[2017-08-30] MEDS: ENOXAPARIN SOD 40 MG/0.4 ML SYRINGE SC SCH (10:19)
[2017-08-30] MEDS: FAMOTIDINE 20 MG TAB PO SCH ×2 (10:19→21:53)
[2017-08-30] MEDS: CLOPIDOGREL BISULFATE 75 MG TAB PO SCH (10:19)
[2017-08-30] MEDS: ASPirin 81 mg TAB PO SCH (10:19)
[2017-08-30] MEDS: LEVETIRACETAM 500 MG TAB PO SCH ×2 (10:20→21:52)
[2017-08-30] MEDS ORDERED: LORazepam 2MG/ML-1ML VIAL IV PRN (11:00)
[2017-08-30 13:00] VITALS: BP 116/69
[2017-08-30] MEDS: BOOST PLUS 8 ounce PO SCH ×2 (16:20→18:34)
[2017-08-30 18:05] VITALS: BP 109/74
[2017-08-30] MEDS: ATORVASTATIN 20 MG TAB PO SCH (21:38)
[2017-08-30 22:07] VITALS: BP 119/72
[2017-08-31 04:47] VITALS: BP 91/61
[2017-08-31 06:25] LABS: Basophils # (auto) 0 uL; Eosinophils # (auto) 0.3 uL; Monocytes # (auto) 0.4 uL
[2017-08-31 06:33] LABS: Eosinophils % (auto) 7.2 % (0.0-7.0); Hematocrit 34.3 % (36.0-46.0); Hemoglobin 11.1 g/dL (12.2-16.2); Lymphocytes # (auto) 1.9 uL; Mean Corpuscular Hemoglobin 27.4 pg (28.0-32.0); Mean Corpuscular Hgb Conc. 32.3 g/dL (32.0-36.0); Mean Corpuscular Volume 84.9 fL (80.0-100.0); Monocytes % (auto) 9.5 % (0.0-12.0); Neutrophils # (auto) 1.4 uL; Neutrophils % (auto) 34.3 % (37.0-80.0); Nucleated Red Blood Cells % 0.1 %; Platelet Count (auto) 223 10^3/uL (140-450); Red Blood Cells 4.04 10^6/uL (4.0-5.20); Red Cell Distribution Width 17.9 % (11.8-14.3)
[2017-08-31 06:39] LABS: BUN/Creatinine Ratio 20.8; Calcium 8.9 mg/dL (8.5-10.1); Potassium 3.9 mmol/L (3.5-5.1)
[2017-08-31 08:42] VITALS: BP 99/68
[2017-08-31] MEDS: FAMOTIDINE 20 MG TAB PO SCH (10:15)
[2017-08-31] MEDS: CLOPIDOGREL BISULFATE 75 MG TAB PO SCH (10:16)
[2017-08-31] MEDS: GABAPENTIN 300 MG CAP PO SCH (10:16)
[2017-08-31] MEDS: ENOXAPARIN SOD 40 MG/0.4 ML SYRINGE SC SCH (10:16)
[2017-08-31] MEDS: ASPirin 81 mg TAB PO SCH (10:16)
[2017-08-31] MEDS: BOOST PLUS 8 ounce PO SCH ×2 (10:17→12:00)
[2017-08-31] MEDS: LEVETIRACETAM 500 MG TAB PO SCH (10:17)
[2017-08-31 13:00] VITALS: BP 120/57
[2017-08-31 13:41] VITALS: BP 107/58
== END 2017-08-31 15:25 | disposition home or self-care (01) | DRG 101 ==
LOC: EDBD 16:20 → ER 16:20 → TELE 16:21 → TELE-EAST 23:24
PROVIDERS: ADMIT Nurse Practitioner; ATTEND Family Medicine
DX: G40.909 Epilepsy, unspecified, not intractable, without status epilepticus (principal); I13.0 Hypertensive heart and chronic kidney disease with heart failure and stage 1 through stage 4 chronic kidney disease, or unspecified chronic kidney disease; I50.9 Heart failure, unspecified; D64.9 Anemia, unspecified; R07.89 Other chest pain; I25.10 Atherosclerotic heart disease of native coronary artery without angina pectoris; N18.2 Chronic kidney disease, stage 2 (mild); E78.00 Pure hypercholesterolemia, unspecified; K76.9 Liver disease, unspecified; E78.5 Hyperlipidemia, unspecified; F32.9 Major depressive disorder, single episode, unspecified; R79.89 Other specified abnormal findings of blood chemistry; I25.2 Old myocardial infarction; Z83.3 Family history of diabetes mellitus; Z90.710 Acquired absence of both cervix and uterus; Z91.19 Patient's noncompliance with other medical treatment and regimen; Z95.5 Presence of coronary angioplasty implant and graft; Z90.49 Acquired absence of other specified parts of digestive tract; Z88.1 Allergy status to other antibiotic agents; Z88.6 Allergy status to analgesic agent; Z91.030 Bee allergy status; Z91.018 Allergy to other foods; Z79.899 Other long term (current) drug therapy; Z90.89 Acquired absence of other organs
CPT/HCPCS: 36415; 70450; 71045; 80048; 80053; 81001; 83735; 83880; 84484; 85025; 87045; 87081; 87899; 93005; 94761; 96361; 96374; 96375

== ENCOUNTER 2017-12-31 12:05 | Inpatient (IN) | payer OTHER, MEDICAID ==
[~2017-12-31] VITALS: Ht 154.9 cm; Wt 70.2 kg
[~2017-12-31 12:05] MED LIST changes: -BACL10TA PO; -CARI-277 PO; +CLOP75TA28 PO; -CYCL5TAB PO; +DIVA250T51 PO; -DIVA500T53 PO; +FURO20TA3 PO; -MELO1TAB56 PO; -ZOLP10TA6 PO
[2017-12-31 13:09] LABS: Urine Bacteria NONE SEEN /hpf (None Seen); Urine Blood Negative /uL (Negative); Urine Mucus FEW (None Seen); Urine Specific Gravity 1.032 (1.001-1.035); Urine WBC 1 /hpf (0 - 5)
[2017-12-31] MEDS ORDERED: ONDANSETRON HCL 4 MG/2 ML VIAL IV ONE (13:15)
[2017-12-31] MEDS ORDERED: MORPHINE SULFATE 4 MG/ML SYR/VIAL IV ONE (13:15)
[2017-12-31 13:43] LABS: Basophils # (auto) 0 uL; Basophils % (auto) 0.9 % (0.0-2.0); Eosinophils # (auto) 0.1 uL; Eosinophils % (auto) 1.1 % (0.0-7.0); Hemoglobin 10.5 g/dL (12.2-16.2); Lymphocytes # (auto) 1.5 uL; Monocytes # (auto) 0.5 uL; Neutrophils # (auto) 2.7 uL; White Blood Cell 4.8 10^3/uL (4.4-10.8)
[2017-12-31 13:45] LABS: Hematocrit 33.5 % (36.0-46.0); Lymphocytes % (auto) 31.7 % (10.0-50.0); Mean Corpuscular Hemoglobin 25.1 pg (28.0-32.0); Mean Corpuscular Hgb Conc. 31.2 g/dL (32.0-36.0); Mean Corpuscular Volume 80.4 fL (80.0-100.0); Monocytes % (auto) 9.8 % (0.0-12.0); Neutrophils % (auto) 56.5 % (37.0-80.0); Platelet Count (auto) 288 10^3/uL (140-450); Red Blood Cells 4.17 10^6/uL (4.0-5.20); Red Cell Distribution Width 18.7 % (11.8-14.3)
[2017-12-31 14:02] LABS: Albumin 3.9 g/dL (3.4-5.0); BUN/Creatinine Ratio 26.8; Calcium 8.7 mg/dL (8.5-10.1); Magnesium 2.1 mg/dL (1.6-2.6); Potassium 3.9 mmol/L (3.5-5.1)
[2017-12-31 14:07] LABS: Bilirubin, Total 0.3 mg/dL (0.2-1.0); Total Protein 7.1 g/dL (6.4-8.2)
[2017-12-31] MEDS ORDERED: ONDANSETRON HCL 4 MG/2 ML VIAL IV PRN (16:15)
[2017-12-31] MEDS ORDERED: ACETAMINOPHEN 325 MG TAB PO PRN (16:15)
[2017-12-31] MEDS ORDERED: LORazepam 0.5 MG TAB PO PRN (16:15)
[2017-12-31] MEDS ORDERED: ALUM & MAG HYDROX-SIMETH LIQ(MAALOX) 30 ML PO ONE (16:15)
[2017-12-31] MEDS ORDERED: ZOLPIDEM TARTRATE 5 MG TAB PO PRN (16:15)
[2017-12-31] MEDS ORDERED: DEXTROSE (50%) 50ML SYRG IV PRN (16:15)
[2017-12-31] MEDS ORDERED: NITROGLYCERIN 0.4 MG SL TAB SL PRN ×2 (16:15)
[2017-12-31] MEDS ORDERED: MORPHINE SULF INJ 2 MG/ML SYRINGE 1ML IV PRN (16:15)
[2017-12-31] MEDS ORDERED: LORazepam 2MG/ML-1ML VIAL IV PRN (16:30)
[2017-12-31] MEDS: ACCU-CHEK COMFORT CURVE STRIP VI SCH ×2 (16:32→22:42)
[2017-12-31] MEDS: BACLOFEN 10 MG TAB PO SCH ×2 (16:44→22:43)
[2017-12-31] MEDS: InsuLIN REG 1unit/0.01ml Soln (100units/ml) SC SCH ×2 (17:00→22:00)
[2017-12-31 17:52] LABS: INR 0.93 (0.9-1.15)
[2017-12-31 20:00] VITALS: BP 120/76
[2017-12-31] MEDS: MORPHINE SULFATE 4 MG/ML SYR/VIAL IV PRN (20:29)
[2017-12-31 22:00] VITALS: BP 120/76
[2017-12-31] MEDS ORDERED: ATORVASTATIN 20 MG TAB PO SCH (22:00)
[2017-12-31] MEDS: SODIUM CHLOR 0.9% PF (SALINE LOCK) 10ML VIAL/SYR IV SCH (22:45)
[2017-12-31] MEDS: ENALAPRIL MALEATE 2.5 MG TAB PO SCH (22:48)
[2017-12-31] MEDS: CYCLOBENZAPRINE HCL 10 MG TAB PO SCH (22:49)
[2017-12-31] MEDS: CARVEDILOL 3.125 MG TAB PO SCH (22:49)
[2017-12-31] MEDS ORDERED: ZOLP10TA PO (22:57)
[2017-12-31] MEDS ORDERED: CHOL20007 PO (22:57)
[2017-12-31] MEDS ORDERED: FERR-7 PO (22:57)
[2017-12-31] MEDS ORDERED: BACL20TA PO (22:57)
[2017-12-31] MEDS ORDERED: CYCL1TAB18 PO (22:57)
[2018-01-01 04:55] VITALS: BP 91/56
[2018-01-01] MEDS: SODIUM CHLOR 0.9% PF (SALINE LOCK) 10ML VIAL/SYR IV SCH ×2 (05:30→14:00)
[2018-01-01] MEDS: CYCLOBENZAPRINE HCL 10 MG TAB PO SCH ×2 (05:30→14:00)
[2018-01-01] MEDS: BACLOFEN 10 MG TAB PO SCH ×3 (06:18→17:00)
[2018-01-01] MEDS: ACCU-CHEK COMFORT CURVE STRIP VI SCH ×3 (06:18→17:00)
[2018-01-01] MEDS: InsuLIN REG 1unit/0.01ml Soln (100units/ml) SC SCH ×3 (06:21→17:00)
[2018-01-01 06:40] LABS: BUN/Creatinine Ratio 21.7; Bilirubin, Total 0.3 mg/dL (0.2-1.0); Calcium 8.3 mg/dL (8.5-10.1); Magnesium 2.7 mg/dL (1.6-2.6); Potassium 4.3 mmol/L (3.5-5.1); Total Protein 6.5 g/dL (6.4-8.2)
[2018-01-01 07:31] LABS: Hematocrit 31.4 % (36.0-46.0); Hemoglobin 10.1 g/dL (12.2-16.2); Mean Corpuscular Hemoglobin 26.1 pg (28.0-32.0); Mean Corpuscular Hgb Conc. 32.1 g/dL (32.0-36.0); Mean Corpuscular Volume 81.2 fL (80.0-100.0); Platelet Count (auto) 232 10^3/uL (140-450); Red Blood Cells 3.87 10^6/uL (4.0-5.20); Red Cell Distribution Width 18.9 % (11.8-14.3); White Blood Cell 3.9 10^3/uL (4.4-10.8)
[2018-01-01 07:36] LABS: Band Neutrophils % (manual) 0; Basophils % (manual) 0 (0.0-2.0); Blast Cells 0; Metamyelocytes % 0; Myelocytes % 0; Promyelocytes % 0; Reactive Lymphocytes 0
[2018-01-01 07:55] LABS: Eosinophils % (manual) 2 (0-7); Lymphocytes % (manual) 67 (10.0-50.0); Monocytes % (manual) 4 (0-12)
[2018-01-01] MEDS ORDERED: ADENOSINE 59 MG in GIVE UN-DILUTED 0 ML IV ONE (08:30)
[2018-01-01 08:58] VITALS: BP 95/69
[2018-01-01 09:08] VITALS: BP_SYST 100; BP_SYST 95; BP_DIAS 57; BP_DIAS 65
[2018-01-01] MEDS ORDERED: ASPirin 81 mg TAB PO SCH (10:00)
[2018-01-01] MEDS ORDERED: DOCUSATE SOD 100 MG CAP PO SCH (10:00)
[2018-01-01] MEDS ORDERED: LORATADINE 10 MG TAB PO SCH (10:00)
[2018-01-01] MEDS ORDERED: CLOPIDOGREL BISULFATE 75 MG TAB PO SCH (10:00)
[2018-01-01] MEDS: CARVEDILOL 3.125 MG TAB PO SCH (10:00)
[2018-01-01] MEDS ORDERED: POTASSIUM CHL 10 Meq TABLET PO SCH (10:00)
[2018-01-01] MEDS ORDERED: FUROSEMIDE 20 MG TAB PO SCH (10:00)
[2018-01-01] MEDS: ENALAPRIL MALEATE 2.5 MG TAB PO SCH (10:00)
[2018-01-01] MEDS: MORPHINE SULFATE 4 MG/ML SYR/VIAL IV PRN (10:59)
[2018-01-01 12:42] VITALS: BP 108/74
[2018-01-01 15:39] VITALS: BP 108/74
== END 2018-01-01 17:50 | disposition home or self-care (01) | DRG 206 ==
LOC: ER 12:05 → TELE 12:06 → TELE-WESTW 19:15
PROVIDERS: ADMIT Internal Medicine; ATTEND Family Medicine
DX: M94.0 Chondrocostal junction syndrome [Tietze] (principal); I13.0 Hypertensive heart and chronic kidney disease with heart failure and stage 1 through stage 4 chronic kidney disease, or unspecified chronic kidney disease; I50.9 Heart failure, unspecified; E11.22 Type 2 diabetes mellitus with diabetic chronic kidney disease; D50.9 Iron deficiency anemia, unspecified; E11.21 Type 2 diabetes mellitus with diabetic nephropathy; E78.5 Hyperlipidemia, unspecified; N18.2 Chronic kidney disease, stage 2 (mild); F32.9 Major depressive disorder, single episode, unspecified; F41.9 Anxiety disorder, unspecified; G40.909 Epilepsy, unspecified, not intractable, without status epilepticus; I25.10 Atherosclerotic heart disease of native coronary artery without angina pectoris; I25.2 Old myocardial infarction; Z83.3 Family history of diabetes mellitus; Z90.710 Acquired absence of both cervix and uterus; Z95.0 Presence of cardiac pacemaker; Z95.5 Presence of coronary angioplasty implant and graft; Z88.1 Allergy status to other antibiotic agents; Z88.8 Allergy status to other drugs, medicaments and biological substances; Z88.5 Allergy status to narcotic agent; Z79.899 Other long term (current) drug therapy; Z79.82 Long term (current) use of aspirin; Z90.49 Acquired absence of other specified parts of digestive tract; Z82.49 Family history of ischemic heart disease and other diseases of the circulatory system; Z91.018 Allergy to other foods
CPT/HCPCS: 36415; 71046; 78452; 80053; 80061; 81001; 82962; 83036; 83540; 83735; 83880; 84443; 84484; 85007; 85025; 85027; 85610; 87081; 93005; 93017; 93306; 94761; 96374; 96375; 96376; J0153; J1815; J2405

== ENCOUNTER 2018-05-13 10:59 | Emergency (ER) | payer MEDICARE, MEDICAID ==
[~2018-05-13] VITALS: Ht 154.9 cm; Wt 68.0 kg
[~2018-05-13 10:59] MED LIST changes: +BACL20TA PO; +CHOL20007 PO; -CLOP75TA41 PO; +CYCL1TAB18 PO; +FERR-7 PO; -LEVE500T22 PO; -LORA-655 PO; +ZOLP10TA PO
[2018-05-13 11:22] LABS: Urine WBC None Seen /hpf (0 - 5)
[2018-05-13 11:43] LABS: Urine Bacteria FEW /hpf (None Seen); Urine Blood Negative /uL (Negative)
[2018-05-13 11:55] LABS: Basophils # (auto) 0 uL; Basophils % (auto) 0.5 % (0.0-2.0); Eosinophils # (auto) 0.1 uL; Hematocrit 41.4 % (36.0-46.0); Lymphocytes # (auto) 1.6 uL; Lymphocytes % (auto) 35.8 % (10.0-50.0); Mean Corpuscular Hemoglobin 31.3 pg (28.0-32.0); Mean Corpuscular Hgb Conc. 33.8 g/dL (32.0-36.0); Mean Corpuscular Volume 92.7 fL (80.0-100.0); Monocytes # (auto) 0.4 uL; Monocytes % (auto) 9.1 % (0.0-12.0); Neutrophils # (auto) 2.4 uL; Neutrophils % (auto) 52.6 % (37.0-80.0); Nucleated Red Blood Cells % 0.1 %; Platelet Count (auto) 244 10^3/uL (140-450); Red Blood Cells 4.47 10^6/uL (4.0-5.20); Red Cell Distribution Width 13.5 % (11.8-14.3); White Blood Cell 4.6 10^3/uL (4.4-10.8)
[2018-05-13 12:07] LABS: INR 0.97 (0.9-1.15); Partial Thromboplastin Time 26.2 sec (23.78-33.04); Prothrombin Time 10.4 sec (9.27-12.13)
[2018-05-13 12:12] LABS: Anion Gap 5 (5-15); Blood Urea Nitrogen 14 mg/dL (7-18); Calcium 8.7 mg/dL (8.5-10.1); Carbon Dioxide 27 mmol/L (21-32); Chloride 108 mmol/L (98-107); Glucose 93 mg/dL (74-106); Magnesium 2.2 mg/dL (1.6-2.6); Potassium 4.4 mmol/L (3.5-5.1); Sodium 140 mmol/L (136-145)
[2018-05-13 12:18] LABS: Alanine Aminotransferase 23 U/L (13-56); Alkaline Phosphatase 124 U/L (45-117); Aspartate Aminotransferase 16 U/L (15-37); BUN/Creatinine Ratio 18.2; Bilirubin, Total 0.2 mg/dL (0.2-1.0); GFR African American > 60 mL/min; GFR Non-African American > 60 mL/min; Total Protein 7.4 g/dL (6.4-8.2)
[2018-05-13 16:17] VITALS: BP 104/71
== END 2018-05-13 16:16 | disposition home or self-care (01) ==
LOC: ER 10:59
DX: R07.89 Other chest pain (principal); M54.9 Dorsalgia, unspecified; G89.29 Other chronic pain; G40.909 Epilepsy, unspecified, not intractable, without status epilepticus; I25.10 Atherosclerotic heart disease of native coronary artery without angina pectoris; E11.22 Type 2 diabetes mellitus with diabetic chronic kidney disease; I13.0 Hypertensive heart and chronic kidney disease with heart failure and stage 1 through stage 4 chronic kidney disease, or unspecified chronic kidney disease; N18.9 Chronic kidney disease, unspecified; I50.9 Heart failure, unspecified; E78.5 Hyperlipidemia, unspecified; I25.2 Old myocardial infarction; Z90.49 Acquired absence of other specified parts of digestive tract; Z88.8 Allergy status to other drugs, medicaments and biological substances; Z88.1 Allergy status to other antibiotic agents; Z79.82 Long term (current) use of aspirin; Z79.899 Other long term (current) drug therapy; Z95.0 Presence of cardiac pacemaker; Z98.61 Coronary angioplasty status
CPT/HCPCS: 36415; 71046; 80053; 80164; 81001; 83735; 83880; 84484; 85025; 85610; 85730; 93005

== ENCOUNTER 2018-06-23 17:41 | Emergency (ER) | payer MEDICARE, MEDICAID ==
[~2018-06-23] VITALS: Ht 154.9 cm; Wt 72.6 kg
[2018-06-23 18:09] VITALS: BP 133/78
[2018-06-23 18:58] LABS: Urine Bacteria NONE SEEN /hpf (None Seen); Urine Blood Negative /uL (Negative); Urine Specific Gravity 1.013 (1.001-1.035); Urine WBC 1 /hpf (0 - 5)
[2018-06-23 19:15] LABS: Basophils # (auto) 0 uL; Basophils % (auto) 0.7 % (0.0-2.0); Eosinophils # (auto) 0.3 uL; Hematocrit 36.2 % (36.0-46.0); Lymphocytes % (auto) 32.1 % (10.0-50.0); Mean Corpuscular Hemoglobin 31.8 pg (28.0-32.0); Mean Corpuscular Volume 96.2 fL (80.0-100.0); Monocytes # (auto) 0.5 uL; Monocytes % (auto) 8.6 % (0.0-12.0); Neutrophils # (auto) 3.3 uL; Neutrophils % (auto) 53.6 % (37.0-80.0); Platelet Count (auto) 256 10^3/uL (140-450); Red Blood Cells 3.76 10^6/uL (4.0-5.20); Red Cell Distribution Width 13.4 % (11.8-14.3); White Blood Cell 6.1 10^3/uL (4.4-10.8)
[2018-06-23 19:41] LABS: Albumin 3.5 g/dL (3.4-5.0); Anion Gap 5 (5-15); Blood Urea Nitrogen 14 mg/dL (7-18); Calcium 8.7 mg/dL (8.5-10.1); Carbon Dioxide 28 mmol/L (21-32); Chloride 110 mmol/L (98-107); Glucose 87 mg/dL (74-106); Potassium 4.7 mmol/L (3.5-5.1); Sodium 143 mmol/L (136-145)
[2018-06-23 19:46] LABS: Alanine Aminotransferase 16 U/L (13-56); Alkaline Phosphatase 113 U/L (45-117); Aspartate Aminotransferase 17 U/L (15-37); BUN/Creatinine Ratio 20.3; Bilirubin, Total 0.3 mg/dL (0.2-1.0); GFR African American 112 mL/min; GFR Non-African American 92 mL/min; Total Protein 6.5 g/dL (6.4-8.2)
== END 2018-06-24 03:33 | disposition left against medical advice (07) ==
LOC: ER 17:41
DX: R51 Headache (principal); R07.9 Chest pain, unspecified; Z53.21 Procedure and treatment not carried out due to patient leaving prior to being seen by health care provider
CPT/HCPCS: 36415; 70450; 71046; 80053; 80164; 81001; 83880; 84484; 85025; 93005

== ENCOUNTER 2018-07-19 20:39 | Inpatient (IN) | payer MEDICARE, MEDICAID ==
[2018-07-18] MEDS: MIDAZOLAM DRIP 50 mg/50mL 50 ML IV SCH (23:22)
[~2018-07-19] VITALS: Ht 160 cm; Wt 73.8 kg
[2018-07-19] MEDS ORDERED: AMMONIA 0.33 ML INHALANT IN ONE ×2 (21:02→23:00)
[2018-07-19] MEDS ORDERED: LORazepam 2MG/ML-1ML VIAL ONE (22:19)
[2018-07-19 22:54] LABS: Basophils # (auto) 0 uL; Basophils % (auto) 0.2 % (0.0-2.0); Eosinophils # (auto) 0.1 uL; Eosinophils % (auto) 1.5 % (0.0-7.0); Hematocrit 45.2 % (36.0-46.0); Hemoglobin 15.1 g/dL (12.2-16.2); Lymphocytes # (auto) 1.4 uL; Lymphocytes % (auto) 15.2 % (10.0-50.0); Mean Corpuscular Hemoglobin 31.7 pg (28.0-32.0); Mean Corpuscular Hgb Conc. 33.4 g/dL (32.0-36.0); Mean Corpuscular Volume 94.8 fL (80.0-100.0); Monocytes # (auto) 0.5 uL; Monocytes % (auto) 5.1 % (0.0-12.0); Neutrophils # (auto) 7.4 uL; Nucleated Red Blood Cells % 0.2 %; Platelet Count (auto) 250 10^3/uL (140-450); Red Blood Cells 4.76 10^6/uL (4.0-5.20); Red Cell Distribution Width 13.4 % (11.8-14.3); White Blood Cell 9.5 10^3/uL (4.4-10.8)
[2018-07-19] MEDS ORDERED: LORazepam 2MG/ML-1ML VIAL IV ONE (23:00)
[2018-07-19] MEDS ORDERED: LORazepam 2MG/ML-1ML VIAL IV PRN (23:00)
[2018-07-19] MEDS ORDERED: SODIUM CHLORIDE 0.9% 2,000 ML IV ONE (23:00)
[2018-07-19] MEDS ORDERED: MIDAZOLAM DRIP 50 mg/50mL 50 ML IV ONE (23:05)
[2018-07-19] MEDS ORDERED: ETOMIDATE (2MG/ML) 20ML VIAL IV ONE ×2 (23:05→23:15)
[2018-07-19] MEDS ORDERED: SUCCINYLCHOLINE CHLORIDE 20 MG/ML 10ML VIAL IV ONE ×2 (23:05→23:15)
[2018-07-19 23:21] LABS: Anion Gap 7 (5-15); BUN/Creatinine Ratio 30.5; Blood Alcohol < 3.0 mg/dL (0-5); Blood Urea Nitrogen 32 mg/dL (7-18); Carbon Dioxide 28 mmol/L (21-32); Chloride 105 mmol/L (98-107); GFR African American 69 mL/min; GFR Non-African American 57 mL/min; Glucose 158 mg/dL (74-106); Magnesium 2.4 mg/dL (1.6-2.6); Potassium 5.1 mmol/L (3.5-5.1); Salicylate < 1.7 mg/dL (2.8-20.0); Sodium 140 mmol/L (136-145)
[2018-07-19 23:23] LABS: Alanine Aminotransferase 17 U/L (13-56); Alkaline Phosphatase 126 U/L (45-117); Aspartate Aminotransferase 38 U/L (15-37); Bilirubin, Total 0.2 mg/dL (0.2-1.0); Total Protein 7.7 g/dL (6.4-8.2)
[2018-07-19 23:30] VITALS: BP 113/71
[2018-07-19 23:30] LABS: Acetaminophen < 2.0 ug/mL (10-30)
--- NOTE | 2018-07-19 23:30 | NUR ---
Respiratory note: PT INTUBATED AT [address] BETANCOURT ON FIRST ATTEMPT, PLACED ON RENTAL VENT [id number], VENT CONNECTED TO RED OUTLET AND O2 SOURCE. ALARMS ARE SET AND AUDIBLE. AMBU BAG AND MASK AT BEDSIDE. BS ARE COURSE T/O SXD SCANT THIN CLEAR WHITE. SPUTUM SAMPLE OBTAINED AND SENT TO LAB. WILL CONTINUE TO MONITOR Q2H AND PRN.
[2018-07-20] VITALS (12 sets, daily range): BP systolic 97–158; BP diastolic 52–97
[2018-07-20 00:31] LABS: Urine Bacteria MOD /hpf (None Seen); Urine Blood 3+ /uL (Negative); Urine Mucus FEW (None Seen); Urine Specific Gravity 1.029 (1.001-1.035); Urine WBC 9 /hpf (0 - 5)
[2018-07-20 00:52] LABS: Alcohol, Urine < 3.0 mg/dL (0-5); Amphetamine Screen, Urine NEGATIVE (NEGATIVE); Barbiturate Scree,Urine NEGATIVE (NEGATIVE); Benzodiazephine Screen, Urine NEGATIVE (NEGATIVE); Cannabinoid Screen, Urine NEGATIVE (NEGATIVE); Cocaine Screen, Urine NEGATIVE (NEGATIVE); Opiate Scree,Urine NEGATIVE (NEGATIVE); Phencyclidine Screen, Urine NEGATIVE (NEGATIVE)
[2018-07-20] MEDS ORDERED: SODIUM CHLORIDE 0.9% 1,000 ML IV ONE ×2 (01:45→07:15)
[2018-07-20] MEDS ORDERED: cefTRIAXone 1GM/50ML D5W 50 ML IV ONE (01:45)
[2018-07-20 02:09] LABS: INR 0.98 (0.9-1.15); Prothrombin Time 10.5 sec (9.27-12.13)
[2018-07-20 04:55] LABS: Albumin 3.1 g/dL (3.4-5.0); BUN/Creatinine Ratio 37.9; Potassium 3.5 mmol/L (3.5-5.1)
[2018-07-20 04:59] LABS: Bilirubin, Total 0.2 mg/dL (0.2-1.0); Total Protein 5.7 g/dL (6.4-8.2)
[2018-07-20] MEDS ORDERED: MORPHINE SULF INJ 2 MG/ML SYRINGE 1ML IV PRN (07:15)
[2018-07-20] MEDS ORDERED: LORazepam 2MG/ML-1ML VIAL IV PRN (07:15)
[2018-07-20] MEDS ORDERED: ACETAMINOPHEN 325 MG TAB PO PRN (07:15)
[2018-07-20] MEDS ORDERED: DEXTROSE (50%) 50ML SYRG IV PRN (07:15)
[2018-07-20] MEDS ORDERED: ONDANSETRON HCL 4 MG/2 ML VIAL IV PRN (07:15)
[2018-07-20] MEDS ORDERED: ALBUTEROL SULF 2.5 MG/0.5ML(0.5%) NEB SOLN NEB PRN (07:15)
--- NOTE | 2018-07-20 08:10 | NUR ---
PT WAS TRANSPORTED TO CT WITH NO INCIDENCE REPORTED. PT WAS MANUALLY VENTILATED FROM ER BED [address] WITH CASE PACKER AT BEDSIDE. SPO2 100%. ETT SECURED AND INTACT. GOOD INSPIRATORY EFFORT AND CHEST RISE. PT MOVED FROM ER BED 8 TO ER BED 6. VENT PLUGGED IN RED OUTLET, AMBU BAG AT BEDSIDE AND CONNECTED TO 02 WALL SOURCE. PLACED PT ON PREVIOUS MODE SETTINGS. WILL CONTINUE TO MONITOR PT.
[2018-07-20 08:14] LABS: Hematocrit 38.5 % (36.0-46.0); Hemoglobin 12.9 g/dL (12.2-16.2)
[2018-07-20] MEDS: cefTRIAXone 1GM/50ML D5W 50 ML IV SCH (09:00)
[2018-07-20] MEDS: ENOXAPARIN SOD 40 MG/0.4 ML SYRINGE SC SCH (10:00)
[2018-07-20] MEDS: PANTOPRAZOLE 40 MG/10 ML VIAL IV SCH (10:00)
[2018-07-20] MEDS: CLOPIDOGREL BISULFATE 75 MG TAB PO SCH (10:30)
[2018-07-20] MEDS: InsuLIN REG 1unit/0.01ml Soln (100units/ml) SC SCH ×2 (12:00→18:00)
[2018-07-20] MEDS: ACCU-CHEK COMFORT CURVE STRIP VI SCH ×2 (12:13→18:00)
--- NOTE | 2018-07-20 12:18 | NUR ---
WOUND CARE NOTE: Wound care in to see patient for skin assessment due to intubation status and low Caleb score of 12, putting patient to high risk for skin breakdown. Patient is 63 years old female with admitting diagnosis of Acute Resp Failure, Toxic Encephalopathy. Patient is resting in hospital bed In ER Rm.#6. She's intubated and mechanically ventilated. Patient appears to be in no pain using Morris Guerrero Faces Pain Scale. Skin assessment done with the assistance of patient's nurse, LAYNE Peña. No wound noted, no non-blanchable redness over bony prominences noted. Veronica care given, applied Barrier cream and covered upper sacrum with preventative Opti foam sacral dressing. Patient tolerated well. Repositioned patient for comfort facing her Lt. side, redistributed pressure points with pillows. LAYNE Peña at bedside. RECOMMENDATION:Daily/PRN cleaning and application of Barrier to sacrum as preventative per MD order, Dietary consult for low Caleb score, frequent turning and repositioning schedule as condition permits, redistribute pressure points with pillows,elevate heels on pillows, continue monitoring by wound care while patient is mechanically ventilated.
[2018-07-20] MEDS: LACTULOSE 20Gm/30ML SOLN NG SCH (13:00)
[2018-07-21] VITALS (8 sets, daily range): BP systolic 154–168; BP diastolic 90–97
[2018-07-21] MEDS: MIDAZOLAM DRIP 50 mg/50mL 50 ML IV SCH ×2 (00:24→03:46)
[2018-07-21] MEDS: LACTULOSE 20Gm/30ML SOLN NG SCH ×3 (00:53→22:32)
[2018-07-21] MEDS: ACCU-CHEK COMFORT CURVE STRIP VI SCH ×4 (00:56→18:45)
[2018-07-21] MEDS: InsuLIN REG 1unit/0.01ml Soln (100units/ml) SC SCH ×4 (01:00→18:46)
[2018-07-21 08:11] LABS: Basophils # (auto) 0 uL; Basophils % (auto) 0.6 % (0.0-2.0); Eosinophils # (auto) 0.2 uL; Eosinophils % (auto) 4.1 % (0.0-7.0); Hematocrit 41.6 % (36.0-46.0); Hemoglobin 13.8 g/dL (12.2-16.2); Lymphocytes # (auto) 1.8 uL; Lymphocytes % (auto) 28.8 % (10.0-50.0); Mean Corpuscular Hemoglobin 31.9 pg (28.0-32.0); Mean Corpuscular Hgb Conc. 33.2 g/dL (32.0-36.0); Mean Corpuscular Volume 96.1 fL (80.0-100.0); Monocytes # (auto) 0.4 uL; Monocytes % (auto) 7.3 % (0.0-12.0); Neutrophils # (auto) 3.6 uL; Neutrophils % (auto) 59.2 % (37.0-80.0); Nucleated Red Blood Cells % 0.1 %; Platelet Count (auto) 189 10^3/uL (140-450); Red Blood Cells 4.33 10^6/uL (4.0-5.20); Red Cell Distribution Width 13.2 % (11.8-14.3); White Blood Cell 6.1 10^3/uL (4.4-10.8)
[2018-07-21 08:29] LABS: Albumin 3.3 g/dL (3.4-5.0); BUN/Creatinine Ratio 25.9; Calcium 8.7 mg/dL (8.5-10.1); Potassium 3.9 mmol/L (3.5-5.1)
[2018-07-21 08:31] LABS: Bilirubin, Total 0.3 mg/dL (0.2-1.0); Total Protein 6.6 g/dL (6.4-8.2)
[2018-07-21] MEDS: cefTRIAXone 1GM/50ML D5W 50 ML IV SCH (09:13)
[2018-07-21] MEDS: ENOXAPARIN SOD 40 MG/0.4 ML SYRINGE SC SCH (10:24)
[2018-07-21] MEDS: PANTOPRAZOLE 40 MG/10 ML VIAL IV SCH (10:24)
[2018-07-21] MEDS: CLOPIDOGREL BISULFATE 75 MG TAB PO SCH (11:39)
--- NOTE | 2018-07-21 15:20 | NUR ---
EXTUBATED PT AT APPROXIMATELY 1520. PT PLACED ON CA AT 35% AT 8LPM. NO STRIDOR NOTED. HR 88, RR 20, 98%, CLEAR BS. PT IN NO DISTRESS. NO SOB NOTED. RN IJEOMA MADE AWARE. WILL CONTINUE TO MONITOR PT.
[2018-07-21] MEDS: ALBUTEROL SULF 2.5 MG/0.5ML(0.5%) NEB SOLN NEB SCH ×2 (19:30→22:08)
[2018-07-22] MEDS: ACCU-CHEK COMFORT CURVE STRIP VI SCH ×5 (00:14→23:56)
[2018-07-22] MEDS: InsuLIN REG 1unit/0.01ml Soln (100units/ml) SC SCH ×5 (06:00→23:56)
[2018-07-22] MEDS: ALBUTEROL SULF 2.5 MG/0.5ML(0.5%) NEB SOLN NEB SCH ×4 (06:26→22:22)
[2018-07-22] MEDS: PANTOPRAZOLE 40 MG/10 ML VIAL IV SCH (09:55)
[2018-07-22] MEDS: CLOPIDOGREL BISULFATE 75 MG TAB PO SCH (09:55)
[2018-07-22] MEDS: ENOXAPARIN SOD 40 MG/0.4 ML SYRINGE SC SCH (09:55)
[2018-07-22] MEDS: cefTRIAXone 1GM/50ML D5W 50 ML IV SCH (09:55)
[2018-07-22] MEDS: LACTULOSE 20Gm/30ML SOLN NG SCH ×2 (09:55→21:58)
--- NOTE | 2018-07-22 14:39 | NUR ---
NUTRITION ASSESSMENT NOTES Please refer to link notes of nutrition screen form filed under the intervention section of the plan of care for further details. Est. Needs based on IBw (52 kg): 1300 kcal to 1550 kcal (25-30 kcal/kgIBW), 52 gms to 62 gms pro (1.0-1.2 gms/kgIBW). Will continue to monitor pertinent labs and reassess nutrient need prn Thank you. Addendum: 07/22/18 at [address] Amended: Links added.
--- NOTE | 2018-07-22 15:52 | NUR ---
Telemetry admit from [facility] admitted to Telemetry unit after SBAR received. Patient oriented to Sangita Cantu, primary RN, unit, room, bed, and unit policies regarding patient care and visiting hours. Patient now on continuous telemetry monitoring, tele box # 47 and telemetry reading on arrival to unit is SINUS RHYTHM AT 81BPM. Patient placed on bedside oxygen, weighed by bedscale and encouraged to call if they need something. All questions and concerns addressed, patient verbalized understanding. Note: PT IS AWAKE AND ALERT, WITH CASTRO CATHETER IN PLACE DRAINING CLEAR YELLOW URINE. NO SIGNS OF DISTRESS AT THIS TIME,
[2018-07-22 16:00] VITALS: BP 148/87
--- NOTE | 2018-07-22 16:41 | NUR ---
mrsa swab sent to lab
[2018-07-22 17:00] VITALS: BP 148/87
--- NOTE | 2018-07-22 17:05 | NUR ---
PT AMBULATED TO THE BATHROOM WITH STANDBY ASSIST, HAD BOWEL MOVEMENT.
--- NOTE | 2018-07-22 17:10 | NUR ---
Lane catheter dc'd Order to discontinue lane catheter. Lane dc'd with clean technique following deflation of balloon. Patient tolerated well with no complaints of pain. Continue care.
--- NOTE | 2018-07-22 19:35 | NUR ---
Open shift Note: Assumed care for Patient for day nurse. Patient is alert and orient x 4. Patient is on room air with no s/s of distress or sob. Patient was instructed on poc and to call as needed. Patient verbalizes understanding. Bed in lowest position and with bed alarm on and call light within reach.
--- NOTE | 2018-07-22 20:00 | NUR ---
Chest pain protocol initiated: Patient states, " I am having chest pain 01/01." This nurse initiated chest pain protocol. EKG was taken and there was no change at this time. Nitroglycerin will be given. vitals are BP 143/80, pulse 89, O2 95%, respiration 16. Placed patient on 2L via nc. Patient did not show any signs of skin color change, sob, or distress.
[2018-07-22] MEDS: NITROGLYCERIN 0.4 MG SL TAB SL PRN ×3 (20:18→21:55)
--- NOTE | 2018-07-22 20:18 | NUR ---
Nitro Given per chest pain protocol Patient was given Nitro per protocol for chest. will continue to monitor vitals and patient. No skin color change or s/s of distress or sob. BP 137/84, Pulse 79, O2 93. Patient denies that the pain was resolved and still states, "pain is a 9/10". will continue with protocol.
--- NOTE | 2018-07-22 20:35 | NUR ---
Contacted MD Contacted Dr. Vicente. Will await call back.
--- NOTE | 2018-07-22 20:54 | NUR ---
Nitro Given per chest pain protocol Patient was given Nitro per protocol for chest. Will continue to monitor vitals and patient. No skin color change or s/s of distress or sob. BP 137/89, Pulse 86, O2 97 on 2l via nc. Patient denies that the pain was resolved pain is 9/10. Will continue with protocol.
--- NOTE | 2018-07-22 20:55 | NUR ---
MD Called back Md had no further recommendation other then to continue with protocol. Md wanted to make sure Cardiology was following the patient. At this time Dr. Kline is following the patient. Will continue with protocol and monitoring patient vitals for any changes and signs of distress.
--- NOTE | 2018-07-22 21:58 | NUR ---
Nitro Given per chest pain protocol Patient was given Nitro per protocol for chest. Will continue to monitor vitals and patient. No skin color change or s/s of distress or sob. BP 129/82, Pulse 82, O2 97 on 2l via nc. Patient denies that the pain was resolved pain is 9/10. Will continue with protocol.
[2018-07-22 22:00] VITALS: BP 138/81
--- NOTE | 2018-07-22 22:00 | NUR ---
IV removal IV DC'd from right thumb 22G with clean sterile technique, catheter fully intact. Pressure dressing applied to site. Patient tolerated well. IV insertion IV access obtained, via clean sterile technique by inserting 24 gauge catheter on left hand. IV secured properly. No trauma to site. Patient tolerated well.
--- NOTE | 2018-07-22 22:50 | NUR ---
Morphine Given per chest pain protocol Patient was given Morphine per protocol for chest. Will continue to monitor vitals and patient. No skin color change or s/s of distress or sob. BP129/82, Pulse 77, O2 97 on 2l via nc. Patient denies that the pain was resolved pain is 8/10.
--- NOTE | 2018-07-22 23:38 | NUR ---
MD Contacted Contacted Dr. Vicente, awaiting call back.
--- NOTE | 2018-07-22 23:39 | NUR ---
MD called back Dr. Vicente was updated about the patient receiving three nitro and dose of morphine, see Emar. Patient stating pain only went down to 8/10. Dr. Vicente ordered a troponin at 7am will follow through orders.
--- NOTE | 2018-07-23 01:05 | NUR ---
Chest pain resolved: Patient states that chest pain if finally resolved. No s/s of distress or sob. No skin color change. BP 126/83, Pulse81, O2 97.
[2018-07-23 05:41] VITALS: BP 121/74
--- NOTE | 2018-07-23 05:55 | NUR ---
Respiratory note: PT REFUSED 0600 SCHEDULED HHN TX. PT IS ON 2LNC, SPO2 100%, HR 65, RR 16. NO S/S OF RESPIRATORY DISTRESS. PT AWARE TO HAVE RT PAGED IF SHE CHANGES HER MIND OR SOB OCCURS. LAYNE RODRIGUES AWARE OF PT REFUSAL.
[2018-07-23] MEDS: ALBUTEROL SULF 2.5 MG/0.5ML(0.5%) NEB SOLN NEB SCH ×2 (05:57→18:00)
[2018-07-23] MEDS: InsuLIN REG 1unit/0.01ml Soln (100units/ml) SC SCH ×2 (06:00→12:00)
[2018-07-23] MEDS: ACCU-CHEK COMFORT CURVE STRIP VI SCH ×2 (06:24→14:59)
--- NOTE | 2018-07-23 07:42 | NUR ---
Closing Note shift: Endorsed care to morning LAYNE Boyer. Patient stable at this time.
--- NOTE | 2018-07-23 07:50 | NUR ---
Opening Shift Note Assumed care of patient, patient comfortably resting in bed. No S/S of distress/SOB or pain. Instructed on POC and to call for assist PRN, will continue to monitor for changes Q1hr and PRN.
[2018-07-23 08:00] VITALS: BP 140/85
[2018-07-23 09:00] VITALS: BP 140/85
[2018-07-23] MEDS: LACTULOSE 20Gm/30ML SOLN NG SCH (09:46)
[2018-07-23] MEDS: ENOXAPARIN SOD 40 MG/0.4 ML SYRINGE SC SCH (09:46)
[2018-07-23] MEDS: CLOPIDOGREL BISULFATE 75 MG TAB PO SCH (09:46)
[2018-07-23] MEDS: PANTOPRAZOLE 40 MG/10 ML VIAL IV SCH (09:46)
[2018-07-23] MEDS: cefTRIAXone 1GM/50ML D5W 50 ML IV SCH (09:52)
--- NOTE | 2018-07-23 11:23 | NUR ---
PT REFUSED 1200 SCHEDULED HHN TX. PT IS ON 2LNC, SPO2 95%, HR 77, RR 16. NO S/S OF RESPIRATORY DISTRESS. RN LAURA AWARE OF REFUSAL. PT AWARE TO HAVE RT PAGED IF SHE CHANGES HER MIND.
[2018-07-23 13:00] VITALS: BP 126/77
[2018-07-23 15:56] VITALS: BP 126/77
--- NOTE | 2018-07-23 16:55 | NUR ---
Dr. Vicente at bedside. Dr Vicente stated that his office will call the patient tomorrow. He wants to see the patient tomorrow. Patient verbalized understanding.
[2018-07-23 17:00] VITALS: BP 153/75
--- NOTE | 2018-07-23 17:09 | NUR ---
Discharge instructions given as ordered. Encourage to follow up with PMD as instructed. All questions and concerns addressed. Patient verbalized understanding. Telemetry unit returned to ICU. Patient ambulated to vehicle with all personal belongings, accompanied by staff and family member. No distress noted at time of departure.
== END 2018-07-23 19:15 | disposition home or self-care (01) | DRG 917 ==
LOC: ER 20:39 → OVERFLOW 07-20 07:03 → TELE-EAST 07-22 15:48
PROVIDERS: ADMIT Nurse Practitioner; ATTEND Internal Medicine
PROC: 5A1945Z Respiratory Ventilation, 24-96 Consecutive Hours (ICD-10-PCS; principal; 2018-07-19)
PROC: 0BH17EZ Insertion of Endotracheal Airway into Trachea, Via Natural or Artificial Opening (ICD-10-PCS; 2018-07-19)
DX: T42.8X2A Poisoning by antiparkinsonism drugs and other central muscle-tone depressants, intentional self-harm, initial encounter (principal); J96.01 Acute respiratory failure with hypoxia; G92 Toxic encephalopathy; I13.0 Hypertensive heart and chronic kidney disease with heart failure and stage 1 through stage 4 chronic kidney disease, or unspecified chronic kidney disease; N39.0 Urinary tract infection, site not specified; F19.20 Other psychoactive substance dependence, uncomplicated; I50.22 Chronic systolic (congestive) heart failure; E11.22 Type 2 diabetes mellitus with diabetic chronic kidney disease; N18.9 Chronic kidney disease, unspecified; Z88.8 Allergy status to other drugs, medicaments and biological substances; Z91.018 Allergy to other foods; Z53.20 Procedure and treatment not carried out because of patient's decision for unspecified reasons; E11.40 Type 2 diabetes mellitus with diabetic neuropathy, unspecified; E78.00 Pure hypercholesterolemia, unspecified; E78.5 Hyperlipidemia, unspecified; G25.81 Restless legs syndrome; G40.409 Other generalized epilepsy and epileptic syndromes, not intractable, without status epilepticus; G89.4 Chronic pain syndrome; I25.10 Atherosclerotic heart disease of native coronary artery without angina pectoris; I25.2 Old myocardial infarction; I70.0 Atherosclerosis of aorta; J45.909 Unspecified asthma, uncomplicated; K72.90 Hepatic failure, unspecified without coma; Z79.899 Other long term (current) drug therapy; Z83.3 Family history of diabetes mellitus; Z90.49 Acquired absence of other specified parts of digestive tract; Z90.710 Acquired absence of both cervix and uterus; Z95.0 Presence of cardiac pacemaker; Z98.1 Arthrodesis status; Z98.84 Bariatric surgery status; Z79.82 Long term (current) use of aspirin; Z82.49 Family history of ischemic heart disease and other diseases of the circulatory system; Z84.1 Family history of disorders of kidney and ureter; Y92.89 Other specified places as the place of occurrence of the external cause; T42.6X2A Poisoning by other antiepileptic and sedative-hypnotic drugs, intentional self-harm, initial encounter; T39.1X2A Poisoning by 4-Aminophenol derivatives, intentional self-harm, initial encounter
CPT/HCPCS: 36415; 36600; 71045; 74176; 80053; 80164; 80307; 80320; 80329; 81001; 82140; 82805; 82962; 83735; 84484; 85014; 85018; 85025; 85610; 85730; 87070; 87081; 87205; 94002; 94003; 94640; 96365; 96367; 96375; C9113; G0378; J0330; J0696; J1815; J2250

== ENCOUNTER 2018-11-15 18:02 | Emergency (ER) | payer MEDICARE, MEDICAID ==
[~2018-11-15] VITALS: Ht 154.9 cm; Wt 68.9 kg
[2018-11-15 19:27] LABS: Basophils # (auto) 0 uL; Basophils % (auto) 0.9 % (0.0-2.0); Eosinophils # (auto) 0.2 uL; Eosinophils % (auto) 5.5 % (0.0-7.0); Hematocrit 38.4 % (36.0-46.0); Hemoglobin 12.7 g/dL (12.2-16.2); Lymphocytes # (auto) 1.4 uL; Lymphocytes % (auto) 31.2 % (10.0-50.0); Mean Corpuscular Hemoglobin 31.2 pg (28.0-32.0); Mean Corpuscular Hgb Conc. 32.9 g/dL (32.0-36.0); Mean Corpuscular Volume 94.8 fL (80.0-100.0); Monocytes # (auto) 0.4 uL; Monocytes % (auto) 8.7 % (0.0-12.0); Neutrophils # (auto) 2.4 uL; Neutrophils % (auto) 53.7 % (37.0-80.0); Platelet Count (auto) 205 10^3/uL (140-450); Red Blood Cells 4.06 10^6/uL (4.0-5.20); Red Cell Distribution Width 14.2 % (11.8-14.3); White Blood Cell 4.4 10^3/uL (4.4-10.8)
[2018-11-15 19:29] LABS: Calcium 9.2 mg/dL (8.5-10.1); Potassium 4.6 mmol/L (3.5-5.1)
[2018-11-15] MEDS ORDERED: ASPirin 81 mg TAB PO ONE (19:30)
[2018-11-15] MEDS ORDERED: ONDANSETRON HCL 4 MG/2 ML VIAL IV ONE (19:30)
[2018-11-15] MEDS ORDERED: MORPHINE SULFATE 4 MG/ML SYR/VIAL IV ONE (19:30)
[2018-11-15 19:32] LABS: Albumin 3.9 g/dL (3.4-5.0); BUN/Creatinine Ratio 10.9
[2018-11-15 19:37] LABS: Bilirubin, Total 0.2 mg/dL (0.2-1.0)
[2018-11-15 21:20] VITALS: BP 115/67
== END 2018-11-15 21:31 | disposition home or self-care (01) ==
LOC: ER 18:02
DX: R07.89 Other chest pain (principal); J45.909 Unspecified asthma, uncomplicated; I25.10 Atherosclerotic heart disease of native coronary artery without angina pectoris; I13.0 Hypertensive heart and chronic kidney disease with heart failure and stage 1 through stage 4 chronic kidney disease, or unspecified chronic kidney disease; E11.22 Type 2 diabetes mellitus with diabetic chronic kidney disease; N18.9 Chronic kidney disease, unspecified; I50.9 Heart failure, unspecified; E78.5 Hyperlipidemia, unspecified; I25.2 Old myocardial infarction; Z86.73 Personal history of transient ischemic attack (TIA), and cerebral infarction without residual deficits; Z90.49 Acquired absence of other specified parts of digestive tract; Z88.1 Allergy status to other antibiotic agents; Z88.8 Allergy status to other drugs, medicaments and biological substances; Z79.82 Long term (current) use of aspirin; Z79.01 Long term (current) use of anticoagulants; Z79.899 Other long term (current) drug therapy; Z90.710 Acquired absence of both cervix and uterus; Z95.0 Presence of cardiac pacemaker; Z98.61 Coronary angioplasty status
CPT/HCPCS: 36415; 71046; 80053; 83735; 84484; 85025; 93005; 94761

== ENCOUNTER 2019-02-12 18:32 | Inpatient (IN) | payer MEDICARE, MEDICAID ==
[~2019-02-12] VITALS: Ht 154.9 cm; Wt 77.1 kg
[~2019-02-12 18:32] MED LIST changes: -CYCL1TAB18 PO; +LEVE500T22 PO; +PRA25T PO
[2019-02-12 19:47] LABS: Basophils # (auto) 0 uL; Eosinophils # (auto) 0.1 uL; Eosinophils % (auto) 4.2 % (0.0-7.0); Hematocrit 38.4 % (36.0-46.0); Hemoglobin 12.4 g/dL (12.2-16.2); Lymphocytes # (auto) 1.3 uL; Lymphocytes % (auto) 37.5 % (10.0-50.0); Mean Corpuscular Hemoglobin 30.3 pg (28.0-32.0); Mean Corpuscular Hgb Conc. 32.4 g/dL (32.0-36.0); Mean Corpuscular Volume 93.6 fL (80.0-100.0); Monocytes # (auto) 0.4 uL; Monocytes % (auto) 10.9 % (0.0-12.0); Neutrophils # (auto) 1.7 uL; Neutrophils % (auto) 46.4 % (37.0-80.0); Platelet Count (auto) 212 10^3/uL (140-450); Red Cell Distribution Width 13.7 % (11.8-14.3); White Blood Cell 3.6 10^3/uL (4.4-10.8)
[2019-02-12 19:57] LABS: Albumin 3.6 g/dL (3.4-5.0); Calcium 7.9 mg/dL (8.5-10.1)
[2019-02-12 20:02] LABS: BUN/Creatinine Ratio 16.4; Bilirubin, Total 0.2 mg/dL (0.2-1.0); Total Protein 6.5 g/dL (6.4-8.2)
[2019-02-12 20:03] LABS: INR 0.95 (0.9-1.15); Partial Thromboplastin Time 25.9 sec (23.64-32.05)
[2019-02-12] MEDS ORDERED: NITROGLYCERIN 0.4 MG SL TAB SL ONE (21:45)
[2019-02-12] MEDS ORDERED: ONDANSETRON HCL 4 MG/2 ML VIAL IV ONE (21:45)
[2019-02-12] MEDS ORDERED: MORPHINE SULFATE 4 MG/ML SYR/VIAL IV ONE (21:45)
[2019-02-12 22:54] LABS: Urine Bacteria FEW /hpf (None Seen); Urine Blood Negative /uL (Negative); Urine Specific Gravity 1.016 (1.001-1.035); Urine WBC <1 /hpf (0 - 5)
[2019-02-13] MEDS ORDERED: ONDANSETRON HCL 4 MG/2 ML VIAL IV PRN (01:15)
[2019-02-13] MEDS ORDERED: hydrALAZINE HCL 20 MG/ML VL IV PRN (01:15)
[2019-02-13] MEDS ORDERED: NITROGLYCERIN 0.4 MG SL TAB SL PRN (01:15)
--- NOTE | 2019-02-13 02:12 | NUR ---
Telemetry admit from [facility] admitted to Telemetry unit. Patient oriented to COREY ORTIZ, primary RN, unit, room, bed, and unit policies regarding patient care and visiting hours. Patient now on continuous telemetry monitoring, tele box # 74 and telemetry reading on arrival to unit is sinus rhythm. Patient weighed by bed scale and encouraged to call as needed. All questions and concerns addressed, patient verbalized understanding. Bed is locked in lowest position, side rails x 2 are up, call light is within reach, and bed alarm is on.
[2019-02-13 02:30] VITALS: BP 156/107
[2019-02-13] MEDS: MORPHINE SULF INJ 2 MG/ML SYRINGE 1ML IV PRN ×5 (03:21→22:13)
--- NOTE | 2019-02-13 03:30 | NUR ---
CHEST PAIN Patient is complaining of radiating chest pain to the back (pain scale 7/10), pressure like feeling. Patient denies shortness of breath and is complaining of nausea. Chest pain protocol initiated. EKG was performed which shows normal sinus rhythm, placed in hard chart. Vital signs were the following: BP: 156/107, HR: 78, RR: 18, TEMP: 97.6, and SPO2: 94% on room air. Patient refused nitroglycerin. Per patient, nitroglycerin "did not help earlier." Patient has been medicated with morphine (see eMAR).
--- NOTE | 2019-02-13 03:35 | NUR ---
IV REMOVAL IV to right wrist infiltrated. IV to right wrist DC'd with clean sterile technique, catheter fully intact. Pressure dressing applied to site. Ice pack provided and instructed patient to place ice to the site and elevate hand, patient verbalized understanding. IV insertion IV access obtained, via clean sterile technique by inserting 22 gauge catheter at left forearm after 1 attempt. IV secured properly. No trauma to site. Patient tolerated well.
--- NOTE | 2019-02-13 03:51 | NUR ---
REASSESSMENT: CHEST PAIN Patient noted laying in bed, eyes closed, with even and unlabored respirations. No S/S of distress, shortness of breath, nausea, or pain noted at this time. Bed is locked in lowest position, side rails x 2 are up, call light is within reach, bed alarm is on, and seizure precaution is in place.
[2019-02-13] MEDS ORDERED: MAGN400T5 PO (04:17)
[2019-02-13] MEDS ORDERED: POTA10TA51 PO (04:17)
[2019-02-13] MEDS ORDERED: CALC667C PO (04:17)
[2019-02-13] MEDS ORDERED: HYDR-4072 PO (04:17)
[2019-02-13] MEDS ORDERED: PNEUMOCOCCAL VACC POLYS 25 MCG/0.5 ML VIAL IM ONE (04:30)
[2019-02-13 05:00] VITALS: BP 115/71
--- NOTE | 2019-02-13 07:00 | NUR ---
RECEIVED ORDERS FROM DR. VICENTE Received order from Dr. Vicente to place neuro consult for history of seizures. Order verified. Will carry out order as received. Addendum: 02/14/19 at 0539 by COREY ORTIZ RN RN Order also received for Ativan 1mg IV every 5 minutes as needed for seizures. Order verified. Will carry out order as received.
--- NOTE | 2019-02-13 07:30 | NUR ---
Dr. Kline called for Cardiology Consult. ordered keep patient NPO, ordered Aspirin 81 mg daily, Lovenox 70 mg SC BID.
--- NOTE | 2019-02-13 09:24 | NUR ---
Dr. Vicente came over. made aware Dr. Kline called back for Cardiology Consult. Informed Dr. Vicente that patient has no new medication orders as per [facility] except Aspirin and Lovenox ordered by Dr. Kline today, and anti nausea and pain medication ordered on admission.
[2019-02-13 09:25] VITALS: BP 134/89
[2019-02-13] MEDS: ENOXAPARIN SOD 80 MG/0.8ML SYRINGE SC SCH ×2 (09:28→22:21)
[2019-02-13] MEDS: ASPirin 81 mg TAB PO SCH (09:28)
[2019-02-13 09:32] LABS: Basophils # (auto) 0 uL; Basophils % (auto) 0.5 % (0.0-2.0); Eosinophils # (auto) 0.1 uL; Eosinophils % (auto) 3.5 % (0.0-7.0); Hematocrit 39.1 % (36.0-46.0); Hemoglobin 12.8 g/dL (12.2-16.2); Lymphocytes # (auto) 1.3 uL; Mean Corpuscular Hemoglobin 30.8 pg (28.0-32.0); Mean Corpuscular Hgb Conc. 32.9 g/dL (32.0-36.0); Mean Corpuscular Volume 93.7 fL (80.0-100.0); Monocytes # (auto) 0.3 uL; Monocytes % (auto) 9.3 % (0.0-12.0); Neutrophils # (auto) 1.8 uL; Neutrophils % (auto) 49.7 % (37.0-80.0); Nucleated Red Blood Cells % 0.1 %; Platelet Count (auto) 213 10^3/uL (140-450); Red Blood Cells 4.17 10^6/uL (4.0-5.20); Red Cell Distribution Width 13.5 % (11.8-14.3); White Blood Cell 3.6 10^3/uL (4.4-10.8)
[2019-02-13 09:51] LABS: Albumin 3.6 g/dL (3.4-5.0); Calcium 8.6 mg/dL (8.5-10.1); Potassium 4.3 mmol/L (3.5-5.1)
[2019-02-13 09:55] LABS: BUN/Creatinine Ratio 16.7; Bilirubin, Total 0.2 mg/dL (0.2-1.0); Total Protein 6.7 g/dL (6.4-8.2)
--- NOTE | 2019-02-13 10:37 | NUR ---
Patient stated her back and chest pain level at 9/10 at this time. Morphine Sulf Inj given for pain as ordered.
--- NOTE | 2019-02-13 10:55 | NUR ---
Informed Dr. Vicente that patient asked for Benadryl for itching. Waiting for MD to call back.
--- NOTE | 2019-02-13 12:11 | NUR ---
Dr. Vicente ordered Benadryl 25 mg PO Q6 PRN for itching.
[2019-02-13 13:00] VITALS: BP 125/52
[2019-02-13] MEDS: diphenhdrAMINE HCL 25 MG CAP PO PRN ×2 (13:04→18:48)
--- NOTE | 2019-02-13 13:04 | NUR ---
Benadryl PO given for itching.
--- NOTE | 2019-02-13 14:43 | NUR ---
Called Dr. Kline's office. Spoke with Amna. Amna to inform Dr. Kline that patient has been on NPO since this morning when he called and ordered NPO for patient except Aspirin 81 mg. Waiting for MD to call back.
--- NOTE | 2019-02-13 16:45 | NUR ---
Called Cardiology Fellow. Spoke with LAYNE Prescott if patient is scheduled for a Cardiology procedure today. Genie said patient is not on Cardiology Fellow schedule today, scheduled tomorrow, (02/14/2019).
[2019-02-13 17:00] VITALS: BP 132/81
--- NOTE | 2019-02-13 17:40 | NUR ---
Patient on NPO after midnight.
--- NOTE | 2019-02-13 17:40 | NUR ---
Dr. Kline came over. spoke with the patient regarding the Angiogram tomorrow, .
--- NOTE | 2019-02-13 18:03 | NUR ---
Patient stated her back pain level at 9/10 at this time. Morphine Sulf Inj 2 mg given for pain as ordered.
[2019-02-13] MEDS ORDERED: LORazepam 2MG/ML-1ML VIAL IV PRN (19:30)
--- NOTE | 2019-02-13 19:30 | NUR ---
Opening Shift Note Assumed care of patient, awake and alert x4. Patient denies pain or shortness of breath at this time. Instructed on plan of care and to call for assistance as needed, patient verbalized understanding. Bed is locked in lowest position, side rails x 2 are up, call light is within reach, and bed alarm is on.
[2019-02-13 21:58] VITALS: BP 126/79
--- NOTE | 2019-02-14 00:21 | NUR ---
RECEIVED ORDERS FROM DR. VICENTE RE:SLEEPING MEDICATION Dr. Vicente notified that patient is requesting a sleeping aide. Dr. Vicente notified that patient states she takes ambien 10mg PO at home to help her sleep. Received orders from Dr. Vicente to resume Ambien 10mg PO HS. Order verified. Will carry out order as received.
[2019-02-14] MEDS: ZOLPIDEM TARTRATE 5 MG TAB PO PRN ×2 (00:49→22:27)
[2019-02-14 05:36] VITALS: BP 121/73
[2019-02-14] MEDS: MORPHINE SULF INJ 2 MG/ML SYRINGE 1ML IV PRN ×4 (06:08→21:19)
--- NOTE | 2019-02-14 07:30 | NUR ---
Patient awake, sitting in bed, oriented x4, allowed light breakfast as ordered, then NPO for Angiogram today.
[2019-02-14 09:00] VITALS: BP 128/80
[2019-02-14] MEDS: ENOXAPARIN SOD 80 MG/0.8ML SYRINGE SC SCH ×2 (10:00→22:26)
[2019-02-14] MEDS: ASPirin 81 mg TAB PO SCH (10:00)
--- NOTE | 2019-02-14 10:24 | NUR ---
Patient stated her back pain level at 9/10 at this time. Morphine Sulf Inj 2 mg given for pain as ordered.
--- NOTE | 2019-02-14 12:45 | NUR ---
Transferred patient via bed to [facility] for Left Heart Cath. Patient awake, oriented x4, no acute distress noted.
[2019-02-14 13:00] VITALS: BP 127/77
--- NOTE | 2019-02-14 14:00 | NUR ---
Dr. Vicente came over. made aware patient is at [facility] for the Left Heart Cath.
--- NOTE | 2019-02-14 14:02 | NUR ---
Dr. Vicente ordered to resume patient's home medications except Baclofen.
[2019-02-14] MEDS ORDERED: LIDOCAINE 2%HCL (LOCAL ANESTH.) INJ 20ML MDV ONE (14:06)
[2019-02-14] MEDS ORDERED: IOHEXOL 350 MG/ML 100ML IJ ONE ×2 (14:06→14:52)
[2019-02-14] MEDS ORDERED: fentaNYL CITRATE 100 MCG/2 ML VL ONE (14:14)
[2019-02-14] MEDS ORDERED: MIDAZOLAM HCL 1MG/1ML-2 ML VIAL ONE (14:14)
[2019-02-14] MEDS ORDERED: SODIUM CHL 0.9% 0 ML ONE (14:14)
[2019-02-14] MEDS ORDERED: ANGIOMAX 250 MG VIAL IV ONE (14:14)
[2019-02-14] MEDS ORDERED: HEPARIN SODIUM (PORCINE) 5000 UNITS/ML 1ML VIAL ONE (14:15)
[2019-02-14] MEDS ORDERED: VERAPAMIL 2.5MG/ML INJ 2ML VIAL IV ONE ×2 (14:15→14:46)
[2019-02-14] MEDS ORDERED: CLOPIDOGREL BISULFATE 75 MG TAB PO ONE (15:30)
[2019-02-14] MEDS ORDERED: SODIUM CHLORIDE 0.9% 1,000 ML IV SCH (15:30)
--- NOTE | 2019-02-14 15:35 | NUR ---
Patient can have Lovenox SC as ordered tonight as per Peer Specialist LAYNE Galicia.
--- NOTE | 2019-02-14 15:40 | NUR ---
NS drip to run for an hour as per Telephone Advice Nurse LAYNE Galicia.
--- NOTE | 2019-02-14 15:40 | NUR ---
Patient back to room post left heart cath, right wrist access with Vasc band, Senior Geotechnical Engineer LAYEN Galicia took 5 ml of air out. Bedrest, flat in bed until 5:00 pm as per Senior Geotechnical Engineer.
--- NOTE | 2019-02-14 16:45 | NUR ---
Patient stated her back pain level at 9/10 at this time. Morphine Sulf Inj 2 mg given for pain as ordered.
[2019-02-14 17:00] VITALS: BP 156/86
[2019-02-14] MEDS: CALCIUM ACETATE 667 MG CAP PO SCH (18:00)
--- NOTE | 2019-02-14 18:30 | NUR ---
About 5 ml of air taken out on Vasc band on the right wrist. No active bleeding noted.
[2019-02-14] MEDS: FERROUS SULFATE 325 MG TAB PO SCH (18:49)
--- NOTE | 2019-02-14 19:44 | NUR ---
RECEIVED PATIENT FROM DAY SHIFT RN. PATIENT RESTING IN BED. NO S/S OF DISTRESS NOTED. C/O PAIN @ 8/10. PATIENT UNDERSTOOD THE SCHEDULE OF PAIN MANAGEMENT. WILL COME BACK FOR PAIN MEDICATION LATER. VASC BAND ON RIGHT WRIST. DEFLATED 2 ML AT THIS TIME. NO FURTHER BLEED NOTED. WILL CONTINUE TO MONITOR IT. POC INSTRUCTED AND ENCOURAGED PATIENT TO CALL FOR SELF CONTAINED BEHAVIOR UNIT TEACHER IF NEEDED. BED IN LOWEST POSITION WITH PADDED SIDE RAILS UP X 2. CALL SHARPE WITHIN REACH. ALARM ON. CONTINUE TO MONITOR FOR CHANGES Q1H AND PRN.
--- NOTE | 2019-02-14 20:10 | NUR ---
MD MCCLELLAN AT BEDSIDE.
[2019-02-14] MEDS ORDERED: LEVETIRACETAM 500 MG TAB PO ONE (20:45)
--- NOTE | 2019-02-14 21:18 | NUR ---
IV insertion IV access obtained, via clean sterile technique by inserting [22] gauge catheter at [RFA] after [2] attempt(s). IV secured properly. No trauma to site. Patient tolerated well. IV INFILTRATED AND removal IV DC'd with clean sterile technique, catheter fully intact. Pressure dressing applied to site. Patient tolerated well. NOTE:
--- NOTE | 2019-02-14 21:19 | NUR ---
MEDICATED PATIENT FOR PAIN @ 12/01. CONTINUE TO MONITOR.
[2019-02-14 21:50] VITALS: BP 156/86
[2019-02-14] MEDS ORDERED: ATORVASTATIN 20 MG TAB PO SCH (22:00)
[2019-02-14] MEDS ORDERED: PRAMIPEXOLE DIHYDROCHLORIDE MO 0.25 MG TAB PO SCH (22:00)
[2019-02-14] MEDS ORDERED: GABAPENTIN 300 MG CAP PO SCH (22:00)
[2019-02-14] MEDS ORDERED: LEVETIRACETAM 500 MG TAB PO SCH (22:00)
[2019-02-14] MEDS: CHOLECALCIFEROL (VITD3) 1,000 UNIT TAB PO SCH (22:28)
--- NOTE | 2019-02-14 23:05 | NUR ---
RT AT BEDSIDE FOR BIPAP
[2019-02-15] MEDS: MORPHINE SULF INJ 2 MG/ML SYRINGE 1ML IV PRN ×3 (01:38→09:42)
--- NOTE | 2019-02-15 01:39 | NUR ---
MEDICATED PATIENT FOR PAIN @ 10/31. CONTINUE TO MONITOR.
--- NOTE | 2019-02-15 04:01 | NUR ---
PATIENT SLEEPING. NO S/S OF DISTRESS NOTED. CONTINUE CARE.
[2019-02-15 05:12] VITALS: BP_SYST 107; BP_SYST 111; BP_DIAS 54; BP_DIAS 66
--- NOTE | 2019-02-15 05:47 | NUR ---
PATIENT WOKE UP AND C/O PAIN @ 10/31. MEDICATED PATIENT ORDERED. CONTINUE TO MONITOR.
[2019-02-15] MEDS ORDERED: buPROPion HCL 75 MG TAB PO SCH (07:00)
[2019-02-15] MEDS: CALCIUM ACETATE 667 MG CAP PO SCH (08:00)
--- NOTE | 2019-02-15 08:00 | NUR ---
Opening Shift Note Assumed care of patient, awake and alert. No S/S of distress/SOB or pain. Instructed on POC and to call for assist PRN, will continue to monitor for changes Q1hr and PRN.
[2019-02-15] MEDS: FERROUS SULFATE 325 MG TAB PO SCH (08:56)
--- NOTE | 2019-02-15 08:57 | NUR ---
Phoslo Medication on back order - not given. Also patient did not know what the Phoslo was ordered for. She said she doesn't take it at home and she is not on dialysis.
[2019-02-15 09:00] VITALS: BP 120/64
[2019-02-15] MEDS: ENOXAPARIN SOD 80 MG/0.8ML SYRINGE SC SCH (09:42)
[2019-02-15] MEDS: ASPirin 81 mg TAB PO SCH (09:44)
[2019-02-15] MEDS: CHOLECALCIFEROL (VITD3) 1,000 UNIT TAB PO SCH (09:44)
[2019-02-15] MEDS ORDERED: CLOPIDOGREL BISULFATE 75 MG TAB PO SCH (10:00)
[2019-02-15] MEDS ORDERED: LEVETIRACETAM 500 MG TAB PO SCH (10:00)
[2019-02-15] MEDS ORDERED: FUROSEMIDE 20 MG TAB PO SCH (10:00)
[2019-02-15] MEDS ORDERED: CYANOCOBALAMIN 500 MCG TAB PO SCH (10:00)
[2019-02-15 13:00] VITALS: BP 107/72
--- NOTE | 2019-02-15 13:45 | NUR ---
D/C Planning Per consult for home health safety evaluation, medication management and vitals. Information and choice letter was given to Pt at bedside. Pt stated she is currently with [facility] and would like to resume service with agency. Contacted [facility] Ph:( [phone] Fax:( [phone] Faxed medical records. Per Janet from [facility] they will resume service for Pt within 48hrs upon d/c day. Informed LAYNE Mosquera. Addendum: 02/15/19 at 1652 by CORBIN SWAN Amended: Links added.
--- NOTE | 2019-02-15 14:24 | NUR ---
Discharge Went over discharge paperwork and answered all questions. Removed IV. Removed telemetry and sent to ICU. Removed ID bands. Patient is dressed and waiting for a ride from her daughter to take her home.
--- NOTE | 2019-02-15 15:58 | NUR ---
LEFT UNIT PATIENT'S DAUGHTER ARRIVED IN PRIVATE VEHICLE. PATIENT WAS TAKEN OUT IN WHEELCHAIR BY THIS NURSE WITH ALL OF HER PERSONAL BELONGINGS.
== END 2019-02-15 18:49 | disposition home health service (06) | DRG 287 ==
LOC: ER 18:43 → TELE 18:44 → TELE-WESTW 02-13 02:15
PROVIDERS: ADMIT Internal Medicine; ATTEND Internal Medicine
PROC: 4A023N7 Measurement of Cardiac Sampling and Pressure, Left Heart, Percutaneous Approach (ICD-10-PCS; principal; 2019-02-14)
PROC: B2111ZZ Fluoroscopy of Multiple Coronary Arteries using Low Osmolar Contrast (ICD-10-PCS; 2019-02-14)
PROC: B2151ZZ Fluoroscopy of Left Heart using Low Osmolar Contrast (ICD-10-PCS; 2019-02-14)
DX: I25.110 Atherosclerotic heart disease of native coronary artery with unstable angina pectoris (principal); I11.0 Hypertensive heart disease with heart failure; E11.40 Type 2 diabetes mellitus with diabetic neuropathy, unspecified; E78.5 Hyperlipidemia, unspecified; E66.9 Obesity, unspecified; F32.9 Major depressive disorder, single episode, unspecified; F41.9 Anxiety disorder, unspecified; G25.81 Restless legs syndrome; M54.5 Low back pain; G40.409 Other generalized epilepsy and epileptic syndromes, not intractable, without status epilepticus; G47.33 Obstructive sleep apnea (adult) (pediatric); G89.4 Chronic pain syndrome; I50.9 Heart failure, unspecified; J45.909 Unspecified asthma, uncomplicated; Z68.32 Body mass index [BMI] 32.0-32.9, adult; Z88.1 Allergy status to other antibiotic agents; Z88.8 Allergy status to other drugs, medicaments and biological substances; Z91.018 Allergy to other foods; I25.2 Old myocardial infarction; Z79.02 Long term (current) use of antithrombotics/antiplatelets; Z83.3 Family history of diabetes mellitus; Z86.73 Personal history of transient ischemic attack (TIA), and cerebral infarction without residual deficits; Z95.0 Presence of cardiac pacemaker; Z79.899 Other long term (current) drug therapy; Z90.710 Acquired absence of both cervix and uterus; Z95.5 Presence of coronary angioplasty implant and graft; Z98.1 Arthrodesis status; Z98.84 Bariatric surgery status; Z90.49 Acquired absence of other specified parts of digestive tract; Z21 Asymptomatic human immunodeficiency virus [HIV] infection status
CPT/HCPCS: 36415; 71046; 80053; 81001; 82962; 84484; 85025; 85610; 85730; 93005; 93458; 94660; 96361; 96372; 96374; 96375; G0378; J2250; J2405

== ENCOUNTER 2019-03-15 13:18 | Emergency (ER) | payer MEDICARE, MEDICAID ==
[~2019-03-15] VITALS: Ht 157.5 cm; Wt 68.0 kg
[~2019-03-15 13:18] MED LIST changes: +CALC667C PO; +HYDR-4072 PO; +MAGN400T5 PO; -NOR10T PO; +POTA10TA51 PO
[2019-03-15] MEDS ORDERED: LEVETIRACETAM INJ 1,000 MG in D5W 5% 100 ML IV ONE (14:15)
[2019-03-15 14:36] LABS: Basophils # (auto) 0 uL; Eosinophils # (auto) 0.1 uL; Eosinophils % (auto) 1.7 % (0.0-7.0); Hematocrit 40.8 % (36.0-46.0); Hemoglobin 13.4 g/dL (12.2-16.2); Lymphocytes # (auto) 1.1 uL; Lymphocytes % (auto) 23.7 % (10.0-50.0); Mean Corpuscular Hemoglobin 30.6 pg (28.0-32.0); Mean Corpuscular Volume 92.8 fL (80.0-100.0); Monocytes # (auto) 0.4 uL; Monocytes % (auto) 8.4 % (0.0-12.0); Neutrophils # (auto) 3.1 uL; Neutrophils % (auto) 65.2 % (37.0-80.0); Nucleated Red Blood Cells % 0.2 %; Platelet Count (auto) 243 10^3/uL (140-450); Red Blood Cells 4.39 10^6/uL (4.0-5.20); Red Cell Distribution Width 13.7 % (11.8-14.3); White Blood Cell 4.8 10^3/uL (4.4-10.8)
[2019-03-15 14:51] LABS: Calcium 8.8 mg/dL (8.5-10.1); Potassium 4.2 mmol/L (3.5-5.1)
[2019-03-15 14:55] LABS: BUN/Creatinine Ratio 14.5; Bilirubin, Total 0.3 mg/dL (0.2-1.0); Total Protein 6.9 g/dL (6.4-8.2)
[2019-03-15] MEDS ORDERED: HYDROcodone-ACET 10/325MG TAB PO ONE (15:45)
[2019-03-15] MEDS ORDERED: METHOCARBAMOL 500 MG TAB PO ONE (15:45)
[2019-03-15 16:34] LABS: Urine Bacteria NONE SEEN /hpf (None Seen); Urine Blood Negative /uL (Negative); Urine Specific Gravity 1.006 (1.001-1.035); Urine WBC <1 /hpf (0 - 5)
[2019-03-15 17:30] VITALS: BP 118/78
== END 2019-03-15 17:31 | disposition home or self-care (01) ==
LOC: ER 13:18 → EDBD 13:18 → ER 17:31
DX: G40.909 Epilepsy, unspecified, not intractable, without status epilepticus (principal); I13.0 Hypertensive heart and chronic kidney disease with heart failure and stage 1 through stage 4 chronic kidney disease, or unspecified chronic kidney disease; E13.22 Other specified diabetes mellitus with diabetic chronic kidney disease; N18.9 Chronic kidney disease, unspecified; I50.9 Heart failure, unspecified; I25.2 Old myocardial infarction; Z90.49 Acquired absence of other specified parts of digestive tract; Z90.89 Acquired absence of other organs
CPT/HCPCS: 36415; 80053; 81001; 85025; J7060

== ENCOUNTER 2019-03-16 19:23 | Inpatient (IN) | payer MEDICARE, MEDICAID ==
[~2019-03-16] VITALS: Ht 154.9 cm; Wt 70.4 kg
[2019-03-16] MEDS ORDERED: LORazepam 2MG/ML-1ML VIAL ONE (20:16)
[2019-03-16] MEDS: LORazepam 2MG/ML-1ML VIAL IV PRN ×4 (20:45→22:07)
[2019-03-16] MEDS ORDERED: SODIUM CHLORIDE 0.9% 1,000 ML IVB ONE (20:47)
[2019-03-16 21:02] LABS: Alcohol, Urine < 3.0 mg/dL (0-5); Amphetamine Screen, Urine NEGATIVE (NEGATIVE); Barbiturate Scree,Urine NEGATIVE (NEGATIVE); Benzodiazephine Screen, Urine NEGATIVE (NEGATIVE); Cannabinoid Screen, Urine NEGATIVE (NEGATIVE); Cocaine Screen, Urine NEGATIVE (NEGATIVE); Opiate Scree,Urine NEGATIVE (NEGATIVE); Phencyclidine Screen, Urine NEGATIVE (NEGATIVE)
[2019-03-16 21:59] LABS: Basophils # (auto) 0.1 uL; Basophils % (auto) 1.3 % (0.0-2.0); Eosinophils # (auto) 0.1 uL; Eosinophils % (auto) 2.1 % (0.0-7.0); Hematocrit 41.1 % (36.0-46.0); Hemoglobin 13.7 g/dL (12.2-16.2); Lymphocytes # (auto) 1.9 uL; Lymphocytes % (auto) 37.4 % (10.0-50.0); Mean Corpuscular Hemoglobin 30.4 pg (28.0-32.0); Mean Corpuscular Hgb Conc. 33.4 g/dL (32.0-36.0); Mean Corpuscular Volume 91.2 fL (80.0-100.0); Monocytes # (auto) 0.5 uL; Monocytes % (auto) 8.7 % (0.0-12.0); Neutrophils # (auto) 2.6 uL; Neutrophils % (auto) 50.5 % (37.0-80.0); Nucleated Red Blood Cells % 0.2 %; Platelet Count (auto) 230 10^3/uL (140-450); Red Cell Distribution Width 13.5 % (11.8-14.3); White Blood Cell 5.2 10^3/uL (4.4-10.8)
[2019-03-16] MEDS ORDERED: LORazepam 2MG/ML-1ML VIAL IV ONE (22:00)
[2019-03-16 22:15] LABS: Salicylate < 1.7 mg/dL (2.8-20.0)
[2019-03-16 22:17] LABS: INR 1.04 (0.9-1.15); Partial Thromboplastin Time 22.4 sec (23.64-32.05)
[2019-03-16 22:19] LABS: Albumin 4.1 g/dL (3.4-5.0); Anion Gap 5 (5-15); Blood Alcohol < 3.0 mg/dL (0-5); Blood Urea Nitrogen 8 mg/dL (7-18); Calcium 8.5 mg/dL (8.5-10.1); Carbon Dioxide 29 mmol/L (21-32); Chloride 108 mmol/L (98-107); Glucose 75 mg/dL (74-106); Sodium 142 mmol/L (136-145)
[2019-03-16 22:21] LABS: Acetaminophen < 2.0 ug/mL (10-30)
[2019-03-16 22:23] LABS: Alanine Aminotransferase 16 U/L (13-56); Alkaline Phosphatase 136 U/L (45-117); Aspartate Aminotransferase 17 U/L (15-37); BUN/Creatinine Ratio 10.3; Bilirubin, Total 0.4 mg/dL (0.2-1.0); GFR African American 97 mL/min; GFR Non-African American 80 mL/min; Total Protein 6.9 g/dL (6.4-8.2)
[2019-03-16] MEDS ORDERED: ACETAMINOPHEN 325 MG TAB PO PRN (22:30)
[2019-03-16] MEDS ORDERED: MORPHINE SULFATE 4 MG/ML SYR/VIAL IV PRN (22:30)
[2019-03-16] MEDS ORDERED: DOCUSATE SOD 100 MG CAP PO PRN (22:30)
[2019-03-16] MEDS ORDERED: HYDROcodone-ACET 5/325MG TAB PO PRN (22:30)
[2019-03-16] MEDS ORDERED: ONDANSETRON HCL 4 MG/2 ML VIAL IV PRN (22:30)
[2019-03-16] MEDS ORDERED: LORazepam 0.5 MG TAB PO PRN (22:30)
[2019-03-17] MEDS ORDERED: LEVETIRACETAM INJ 1,000 MG in D5W 5% 100 ML IV ONE ×2
[2019-03-17] MEDS: LORazepam 2MG/ML-1ML VIAL IV PRN ×2 (00:05→00:57)
[2019-03-17 00:52] VITALS: BP 136/85
[2019-03-17] MEDS ORDERED: LORazepam 2MG/ML-1ML VIAL IV PRN ×2 (01:15→02:45)
[2019-03-17] MEDS ORDERED: LEVETIRACETAM 500 MG/5ML INJ IV ONE (01:41)
[2019-03-17] MEDS: SODIUM CHLORIDE 0.9% 1,000 ML IV SCH ×2 (02:12→16:15)
[2019-03-17] MEDS ORDERED: METH-532 PO (02:18)
[2019-03-17] MEDS: HYDROcodone-ACET 10/325MG TAB PO PRN ×2 (03:29→16:16)
[2019-03-17 05:30] VITALS: BP 116/76
[2019-03-17 05:50] LABS: Calcium 8.2 mg/dL (8.5-10.1); Potassium 3.6 mmol/L (3.5-5.1)
[2019-03-17 05:54] LABS: BUN/Creatinine Ratio 7.8; Basophils # (auto) 0 uL; Basophils % (auto) 0.9 % (0.0-2.0); Eosinophils # (auto) 0.2 uL; Eosinophils % (auto) 4.3 % (0.0-7.0); Hematocrit 37.2 % (36.0-46.0); Hemoglobin 12.3 g/dL (12.2-16.2); Lymphocytes # (auto) 1.8 uL; Lymphocytes % (auto) 44.2 % (10.0-50.0); Mean Corpuscular Hemoglobin 30.5 pg (28.0-32.0); Mean Corpuscular Hgb Conc. 33.1 g/dL (32.0-36.0); Monocytes # (auto) 0.4 uL; Neutrophils # (auto) 1.7 uL; Neutrophils % (auto) 41.6 % (37.0-80.0); Nucleated Red Blood Cells % 0.1 %; Platelet Count (auto) 217 10^3/uL (140-450); Red Blood Cells 4.05 10^6/uL (4.0-5.20); Red Cell Distribution Width 13.5 % (11.8-14.3); White Blood Cell 4.1 10^3/uL (4.4-10.8)
[2019-03-17 08:53] VITALS: BP 117/76
[2019-03-17] MEDS ORDERED: LEVETIRACETAM INJ 1,000 MG in D5W 5% 100 ML IV SCH (10:00)
[2019-03-17 13:00] VITALS: BP 151/64
[2019-03-17 17:00] VITALS: BP 129/76
[2019-03-17 22:00] VITALS: BP 108/63
[2019-03-17] MEDS: LEVETIRACETAM 500 MG TAB PO SCH (22:03)
[2019-03-18] MEDS: HYDROcodone-ACET 10/325MG TAB PO PRN ×4 (00:05→21:45)
[2019-03-18 05:45] VITALS: BP 109/69
[2019-03-18 08:00] VITALS: BP 103/68
[2019-03-18] MEDS: SODIUM CHLORIDE 0.9% 1,000 ML IV SCH (08:11)
[2019-03-18 09:00] VITALS: BP 103/68
[2019-03-18] MEDS: LEVETIRACETAM 500 MG TAB PO SCH ×2 (09:30→21:44)
[2019-03-18 13:00] VITALS: BP 104/76
[2019-03-18 16:19] VITALS: BP 103/66
[2019-03-18 22:00] VITALS: BP 110/73
[2019-03-18] MEDS ORDERED: ZOLPIDEM TARTRATE 5 MG TAB PO PRN (22:00)
[2019-03-18] MEDS ORDERED: MORPHINE SULF INJ 2 MG/ML SYRINGE 1ML IV PRN (22:00)
[2019-03-18] MEDS ORDERED: NITROGLYCERIN 0.4 MG SL TAB SL PRN (22:00)
[2019-03-19] MEDS: SODIUM CHLORIDE 0.9% 1,000 ML IV SCH ×2 (00:21→17:01)
[2019-03-19 05:18] VITALS: BP 109/68
[2019-03-19] MEDS: HYDROcodone-ACET 10/325MG TAB PO PRN ×2 (08:02→14:46)
[2019-03-19 09:00] VITALS: BP 121/71
[2019-03-19] MEDS: LEVETIRACETAM 500 MG TAB PO SCH (10:01)
[2019-03-19 13:00] VITALS: BP 123/70
[2019-03-19 16:11] VITALS: BP 95/65
[2019-03-19 17:21] VITALS: BP 104/67
== END 2019-03-19 19:32 | disposition home or self-care (01) | DRG 303 ==
LOC: ER 19:23 → WEST WING 19:24
PROVIDERS: ADMIT Hospitalist; ATTEND Internal Medicine
DX: I25.110 Atherosclerotic heart disease of native coronary artery with unstable angina pectoris (principal); E11.9 Type 2 diabetes mellitus without complications; R56.9 Unspecified convulsions; E78.5 Hyperlipidemia, unspecified; F17.200 Nicotine dependence, unspecified, uncomplicated; G89.4 Chronic pain syndrome; I11.0 Hypertensive heart disease with heart failure; F32.9 Major depressive disorder, single episode, unspecified; F41.9 Anxiety disorder, unspecified; E11.40 Type 2 diabetes mellitus with diabetic neuropathy, unspecified; I50.9 Heart failure, unspecified; J45.909 Unspecified asthma, uncomplicated; Z83.3 Family history of diabetes mellitus; Z86.73 Personal history of transient ischemic attack (TIA), and cerebral infarction without residual deficits; Z90.49 Acquired absence of other specified parts of digestive tract; Z90.710 Acquired absence of both cervix and uterus; Z95.0 Presence of cardiac pacemaker; Z95.5 Presence of coronary angioplasty implant and graft; Z98.84 Bariatric surgery status; Z88.1 Allergy status to other antibiotic agents; Z88.5 Allergy status to narcotic agent; Z88.8 Allergy status to other drugs, medicaments and biological substances; Z91.018 Allergy to other foods
CPT/HCPCS: 36415; 71045; 80048; 80053; 80164; 80307; 80320; 80329; 81001; 83605; 83735; 83880; 84443; 84484; 85025; 85610; 85730; 87081; 93005; 96361; 96365; 96375; G0378; J7060

== ENCOUNTER → 2019-07-13 | Emergency (ER) | payer MEDICARE, MEDICAID ==
[~2019-07-13] VITALS: Ht 156.2 cm; Wt 78.5 kg
[~2019-07-13] MED LIST changes: -BACL20TA PO; +LORazepam 2MG/ML-1ML VIAL IV ONE; +MAGN400T40 PO; -MAGN400T5 PO; +METH-532 PO; +MORPHINE SULFATE 4 MG/ML SYR/VIAL IV ONE; +ONDANSETRON HCL 4 MG/2 ML VIAL IV ONE; -PRA25T PO; +PRAM0.252 PO; +diphenhdrAMINE HCL 50 MG/1 ML VL IV ONE; +levETIRAcetam 500 MG/5ML INJ IV ONE
[2019-07-13 20:02] LABS: Basophils # (auto) 0.1 10 ^3/uL (0-0.2); Basophils % (auto) 1.5 % (0.0-2.0); Eosinophils # (auto) 0.2 10 ^3/uL (0-0.8); Eosinophils % (auto) 3.5 % (0.0-7.0); Hemoglobin 13.4 g/dL (12.2-16.2); Lymphocytes # (auto) 2.8 10 ^3/uL (0.4-5.4); Lymphocytes % (auto) 52.4 % (10.0-50.0); Mean Corpuscular Hemoglobin 30.5 pg (28.0-32.0); Mean Corpuscular Hgb Conc. 33.6 g/dL (32.0-36.0); Mean Corpuscular Volume 90.7 fL (80.0-100.0); Monocytes # (auto) 0.5 10 ^3/uL (0-1.3); Monocytes % (auto) 9.3 % (0.0-12.0); Neutrophils # (auto) 1.8 10 ^3/uL (1.6-8.6); Neutrophils % (auto) 33.3 % (37.0-80.0); Nucleated Red Blood Cells % 0.1 %; Platelet Count (auto) 215 10^3/uL (140-450); Red Cell Distribution Width 13.5 % (11.8-14.3); White Blood Cell 5.3 10^3/uL (4.4-10.8)
[2019-07-13 20:20] LABS: Albumin 3.4 g/dL (3.4-5.0); Calcium 8.7 mg/dL (8.5-10.1); Potassium 3.9 mmol/L (3.5-5.1)
[2019-07-13 20:24] LABS: BUN/Creatinine Ratio 19.7; Bilirubin, Total 0.3 mg/dL (0.2-1.0); Total Protein 6.8 g/dL (6.4-8.2)
[2019-07-14 01:10] VITALS: BP 109/72
== END | disposition home or self-care (01) ==
LOC: ER 18:07
DX: G40.909 Epilepsy, unspecified, not intractable, without status epilepticus (principal); I13.0 Hypertensive heart and chronic kidney disease with heart failure and stage 1 through stage 4 chronic kidney disease, or unspecified chronic kidney disease; E11.22 Type 2 diabetes mellitus with diabetic chronic kidney disease; N18.9 Chronic kidney disease, unspecified; I50.9 Heart failure, unspecified; J45.909 Unspecified asthma, uncomplicated; I25.10 Atherosclerotic heart disease of native coronary artery without angina pectoris; I25.2 Old myocardial infarction; Z86.73 Personal history of transient ischemic attack (TIA), and cerebral infarction without residual deficits
CPT/HCPCS: 36415; 70450; 80053; 85025; 93005; 96365; 96375; 99285; J1953; J2060; J2270; J2405; J7060

== ENCOUNTER 2019-09-27 19:55 | Inpatient (IN) | payer MEDICARE, MEDICAID ==
[~2019-09-27] VITALS: Ht 154.9 cm; Wt 85.0 kg
[~2019-09-27 19:55] MED LIST changes: -LEVE500T22 PO; +LEVE500T32 PO; -LORazepam 2MG/ML-1ML VIAL IV ONE; -MORPHINE SULFATE 4 MG/ML SYR/VIAL IV ONE; -ONDANSETRON HCL 4 MG/2 ML VIAL IV ONE; -diphenhdrAMINE HCL 50 MG/1 ML VL IV ONE; -levETIRAcetam 500 MG/5ML INJ IV ONE
[2019-09-27 22:19] LABS: Basophils # (auto) 0 10 ^3/uL (0-0.2); Basophils % (auto) 0.6 % (0.0-2.0); Eosinophils # (auto) 0.1 10 ^3/uL (0-0.8); Eosinophils % (auto) 2.7 % (0.0-7.0); Hemoglobin 14.5 g/dL (12.2-16.2); Lymphocytes # (auto) 2.3 10 ^3/uL (0.4-5.4); Mean Corpuscular Hemoglobin 30.1 pg (28.0-32.0); Mean Corpuscular Volume 91.3 fL (80.0-100.0); Monocytes # (auto) 0.5 10 ^3/uL (0-1.3); Monocytes % (auto) 10.4 % (0.0-12.0); Neutrophils % (auto) 39.3 % (37.0-80.0); Nucleated Red Blood Cells % 0.1 %; Platelet Count (auto) 265 10^3/uL (140-450); Red Blood Cells 4.82 10^6/uL (4.0-5.20)
[2019-09-27 22:37] LABS: Alanine Aminotransferase 37 U/L (13-56); Anion Gap 7 (5-15); Aspartate Aminotransferase 30 U/L (15-37); BUN/Creatinine Ratio 10.1; Blood Urea Nitrogen 8 mg/dL (7-18); Carbon Dioxide 25 mmol/L (21-32); Chloride 109 mmol/L (98-107); GFR African American 95 mL/min; GFR Non-African American 78 mL/min; Glucose 104 mg/dL (74-106); Potassium 3.9 mmol/L (3.5-5.1); Sodium 141 mmol/L (136-145)
[2019-09-27 22:42] LABS: Alkaline Phosphatase 133 U/L (45-117); Bilirubin, Total 0.4 mg/dL (0.2-1.0); Total Protein 7.6 g/dL (6.4-8.2)
[2019-09-27] MEDS ORDERED: predniSONE 20 MG TAB PO ONE (23:00)
[2019-09-27] MEDS ORDERED: KETOROLAC TROMETH 60MG/2ML VIAL IM ONE ×2 (23:00)
[2019-09-27] MEDS ORDERED: methylPREDNISolone SOD SUCC 1,000 MG in SODIUM CHL 0.9% 250 ML IV ONE (23:30)
[2019-09-27] MEDS ORDERED: MORPHINE SULF INJ 2 MG/ML SYRINGE 1ML IV ONE (23:30)
[2019-09-27] MEDS ORDERED: ONDANSETRON HCL 4 MG/2 ML VIAL IV ONE (23:30)
[2019-09-28] MEDS ORDERED: methylPREDNISolone SOD SUCC 125 MG/2 ML VL ONE (00:30)
[2019-09-28] MEDS ORDERED: methylPREDNISolone SOD SUCC 125 MG/2 ML VL IV ONE (01:00)
[2019-09-28] MEDS ORDERED: levETIRAcetam 500 MG TAB PO ONE (03:15)
[2019-09-28] MEDS ORDERED: ZOLPIDEM TARTRATE 5 MG TAB PO ONE (03:15)
[2019-09-28 07:20] LABS: Basophils # (auto) 0 10 ^3/uL (0-0.2); Basophils % (auto) 0.4 % (0.0-2.0); Eosinophils # (auto) 0 10 ^3/uL (0-0.8); Hematocrit 41.5 % (36.0-46.0); Hemoglobin 13.6 g/dL (12.2-16.2); Lymphocytes # (auto) 0.7 10 ^3/uL (0.4-5.4); Lymphocytes % (auto) 16.6 % (10.0-50.0); Mean Corpuscular Hemoglobin 29.8 pg (28.0-32.0); Mean Corpuscular Hgb Conc. 32.7 g/dL (32.0-36.0); Mean Corpuscular Volume 91.1 fL (80.0-100.0); Monocytes # (auto) 0.1 10 ^3/uL (0-1.3); Monocytes % (auto) 1.5 % (0.0-12.0); Neutrophils # (auto) 3.6 10 ^3/uL (1.6-8.6); Neutrophils % (auto) 81.5 % (37.0-80.0); Nucleated Red Blood Cells % 0.1 %; Platelet Count (auto) 257 10^3/uL (140-450); Red Blood Cells 4.56 10^6/uL (4.0-5.20); Red Cell Distribution Width 13.9 % (11.8-14.3); White Blood Cell 4.4 10^3/uL (4.4-10.8)
[2019-09-28 07:42] LABS: Albumin 3.9 g/dL (3.4-5.0); Calcium 8.9 mg/dL (8.5-10.1); Potassium 4.3 mmol/L (3.5-5.1)
[2019-09-28 07:47] LABS: Urine Bacteria NONE SEEN /hpf (None Seen); Urine Blood Negative /uL (Negative); Urine Mucus FEW (None Seen); Urine Specific Gravity 1.021 (1.001-1.035); Urine WBC 2 /hpf (0 - 5)
[2019-09-28 07:47] LABS: BUN/Creatinine Ratio 15.2; Bilirubin, Total 0.3 mg/dL (0.2-1.0); Total Protein 7.2 g/dL (6.4-8.2)
[2019-09-28 07:53] LABS: Alcohol, Urine < 3.0 mg/dL (0-10); Amphetamine Screen, Urine NEGATIVE (NEGATIVE); Barbiturate Scree,Urine NEGATIVE (NEGATIVE); Benzodiazephine Screen, Urine NEGATIVE (NEGATIVE); Cannabinoid Screen, Urine NEGATIVE (NEGATIVE); Cocaine Screen, Urine NEGATIVE (NEGATIVE); Opiate Scree,Urine NEGATIVE (NEGATIVE); Phencyclidine Screen, Urine NEGATIVE (NEGATIVE)
[2019-09-28] MEDS: MORPHINE SULF INJ 2 MG/ML SYRINGE 1ML IV PRN ×3 (12:41→21:42)
--- NOTE | 2019-09-28 12:43 | NUR ---
Telemetry admit from ER RE[facility] Bishop admitted to Telemetry unit after SBAR received. Patient oriented to TORSTEN henao RN, unit, room 204 and unit policies regarding patient care and visiting hours. Patient now on continuous telemetry monitoring, tele box #30 and telemetry reading on arrival to unit is SR 79. Patient placed on bedside oxygen, weighed by bedscale and encouraged to call if they need something. All questions and concerns addressed, patient verbalized understanding.
[2019-09-28] MEDS: ONDANSETRON HCL 4 MG/2 ML VIAL IV PRN ×2 (12:44→17:21)
[2019-09-28] MEDS ORDERED: METOCLOPRAMIDE HCL 10 MG TAB PO PRN (13:15)
[2019-09-28] MEDS: GABAPENTIN 300 MG CAP PO SCH ×2 (14:20→21:45)
--- NOTE | 2019-09-28 14:46 | NUR ---
PAGED LOBO regarding continuing home medications. New orders received, read back, will input and follow through.
--- NOTE | 2019-09-28 15:34 | NUR ---
CALLED MACHINE II COREMAKER PICC NURSE For midline placement. Patient is a hard stick. Per PICC nurse "she will come in or find someone else to come in".
--- NOTE | 2019-09-28 15:41 | NUR ---
DIALYSIS COMPLETE Per Dialysis nurse 3L removed Vitals: BP 127/66, HR 69 Addendum: 09/28/19 at 1626 by TORSTEN VILLAFUERTE RN Wrong Patient
--- NOTE | 2019-09-28 16:23 | NUR ---
PICC nurse at bedside
--- NOTE | 2019-09-28 16:53 | NUR ---
Midline Placement: Patient educated on need for midline placement. All risks and benefits explained and all questions and concerns addresses prior to procedure. 18g/10cm midline inserted via right brachial vein using Ultrasound. Sterile technique utilized. Blood return obtained from lumen and flushed easily with NS using proper technique. Midline secured with saline lock; biodisc and occlusive dressing applied. Primary RN notified. Midline lot #[id number].
--- NOTE | 2019-09-28 16:54 | NUR ---
IV removal IV to the left AC DC'd with clean sterile technique, catheter fully intact. Pressure dressing applied to site. Patient tolerated well.
[2019-09-28 16:55] VITALS: BP 119/63
[2019-09-28] MEDS: DexAMETHasone INJECTION 10 MG in D5W 5% 50 ML IV SCH (17:21)
[2019-09-28] MEDS: SODIUM CHLORIDE 0.9% 1,000 ML IV SCH (17:21)
[2019-09-28] MEDS: FERROUS SULFATE 325 MG TAB PO SCH (18:05)
[2019-09-28 20:23] VITALS: BP 119/63
[2019-09-28] MEDS: levETIRAcetam 500 MG TAB PO SCH (21:44)
[2019-09-28] MEDS: ATORVASTATIN 20 MG TAB PO SCH (21:45)
[2019-09-28] MEDS: PRAMIPEXOLE DIHYDROCHLORIDE MO 0.25 MG TAB PO SCH (21:49)
[2019-09-28 21:54] VITALS: BP 130/80
--- NOTE | 2019-09-28 22:40 | NUR ---
RT NOTE PT PLACED ON HOSPITAL OWNED HOME CPAP UNIT # RESPIRATORY 2 WITH MEDIUM MASK ON STATED SETTINGS OF APAP 4-15 CMH2O. CPAP IS PLUGGED TO RED OUTLET. HUMIDIFIER FILLED TO FILL LINE AND SET TO 1. PT IS ON BEDSDIE POX PER PROTOCOL. ALARMS ARE AUDIBLE TO NURSES STATION. PT APPEARS TO TOLERATE WELL. PT AWARE TO CALL IF ADJUSTMENTS NEED TO BE MADE OR ANY OTHER QUESTIONS. CONT ORDERED Addendum: 09/28/19 at 2247 by Beth Avilez RT Amended: Links added.
--- NOTE | 2019-09-29 00:21 | NUR ---
RT NOTE ROUTINE CPAP CHECK DONE. PT IS ON HOSPITAL OWNED HOME CPAP UNIT # RESPIRATORY 2 WITH MEDIUM MASK ON STATED SETTINGS OF APAP 4-15 CMH2O. CPAP IS PLUGGED TO RED OUTLET. HUMIDIFIER FILLED TO FILL LINE AND SET TO 1. PT IS ON BEDSDIE POX PER PROTOCOL. ALARMS ARE AUDIBLE TO NURSES STATION. PT IS SLEEPING AND APPEARS TO TOLERATE WELL. CONT ORDERED Addendum: 09/29/19 at 0055 by Beth Avilez RT Amended: Links added.
[2019-09-29] MEDS: MORPHINE SULF INJ 2 MG/ML SYRINGE 1ML IV PRN ×6 (02:11→23:19)
[2019-09-29] MEDS: SODIUM CHLORIDE 0.9% 1,000 ML IV SCH ×3 (02:14→19:15)
--- NOTE | 2019-09-29 02:18 | NUR ---
RT NOTE ROUTINE CPAP CHECK DONE. PT IS ON HOSPITAL OWNED HOME CPAP UNIT # RESPIRATORY 2 WITH MEDIUM MASK ON STATED SETTINGS OF APAP 4-15 CMH2O. CPAP IS PLUGGED TO RED OUTLET. HUMIDIFIER FILLED TO FILL LINE AND SET TO 1. PT IS ON BEDSIDE POX PER PROTOCOL. ALARMS ARE AUDIBLE TO NURSES STATION. PT IS SLEEPING AND APPEARS TO TOLERATE WELL. NO CHANGES MADE AT THIS TIME. CONT ORDERED Addendum: 09/29/19 at 0225 by Beth Avilez RT Amended: Links added.
--- NOTE | 2019-09-29 04:09 | NUR ---
RT NOTE ROUTINE CPAP CHECK DONE. PT IS ON HOSPITAL OWNED HOME CPAP UNIT # RESPIRATORY 2 WITH MEDIUM MASK ON STATED SETTINGS OF APAP 4-15 CMH2O. CPAP IS PLUGGED TO RED OUTLET. HUMIDIFIER FILLED TO FILL LINE AND SET TO 1. PT IS ON BEDSIDE POX PER PROTOCOL. ALARMS ARE AUDIBLE TO NURSES STATION. PT IS SLEEPING AND APPEARS TO TOLERATE WELL. CONT ORDERED Addendum: 09/29/19 at 0411 by Beth Avilez RT Amended: Links added.
[2019-09-29 05:00] VITALS: BP 141/90
[2019-09-29 05:28] LABS: Potassium 4.6 mmol/L (3.5-5.1)
[2019-09-29 05:32] LABS: BUN/Creatinine Ratio 17.4; Calcium 8.9 mg/dL (8.5-10.1); Magnesium 2.3 mg/dL (1.6-2.6); Phosphorus 3.5 mg/dL (2.5-4.90)
[2019-09-29] MEDS: GABAPENTIN 300 MG CAP PO SCH ×3 (06:07→22:26)
--- NOTE | 2019-09-29 07:07 | NUR ---
OPENING SHIFT NOTE Assumed care of patient from fast food shift supervisor RNRaman. Seizure precautions in place. Patient is alert and oriented x4, patient complaining of a headache8/10. Patient was medicated at 0607, patient requested ice pack for her head, lights in the room turned off, noise reduced. Patient was updated on the plan of care and verbalized understanding. Patient is on oxygen at 2L/min via nasal cannula, saturation is 95%. Bed is locked, in the lowest position, side rails up x2 and call light is in reach. Patient was encouraged to call for assistance as needed.
[2019-09-29] MEDS: CALCIUM ACETATE 667 MG CAP PO SCH ×2 (07:55→17:44)
[2019-09-29] MEDS: FERROUS SULFATE 325 MG TAB PO SCH ×2 (07:55→17:44)
[2019-09-29 09:00] VITALS: BP 148/91
--- NOTE | 2019-09-29 09:24 | NUR ---
PATIENT AMBULATING THE HALLWAY With a steady gait, no signs of distress noted.
[2019-09-29] MEDS: CITALOPRAM HYDROBR 20 MG TAB PO SCH (10:24)
[2019-09-29] MEDS: ASPirin 81 mg TAB PO SCH (10:24)
[2019-09-29] MEDS: POTASSIUM CHL 10 Meq TABLET PO SCH (10:25)
[2019-09-29] MEDS: FUROSEMIDE 20 MG TAB PO SCH (10:25)
[2019-09-29] MEDS: LORATADINE 10 MG TAB PO SCH (10:25)
[2019-09-29] MEDS: levETIRAcetam 500 MG TAB PO SCH ×2 (10:25→22:27)
[2019-09-29] MEDS: CYANOCOBALAMIN 500 MCG TAB PO SCH (10:26)
[2019-09-29] MEDS: CLOPIDOGREL BISULFATE 75 MG TAB PO SCH (10:26)
[2019-09-29] MEDS: MAGNESIUM OXIDE 400 MG TAB PO SCH (10:26)
[2019-09-29] MEDS: CHOLECALCIFEROL (VITD3) 1,000UNIT=25mCg TAB PO SCH (10:26)
[2019-09-29 13:00] VITALS: BP 147/73
--- NOTE | 2019-09-29 14:08 | NUR ---
Patient complaining of new onset left leg numbness No other signs of distress noted, vital signs stable. Luca is aware, no new orders received.
--- NOTE | 2019-09-29 14:28 | NUR ---
ELEUTERIO AT BEDSIDE Updated on the patient status. Plan of care discussed with patient. Per MD he will order CT scan. No new orders received.
--- NOTE | 2019-09-29 15:04 | NUR ---
PATIENT TAKEN TO CT Accompanied by tech, no signs of distress noted upon departure.
--- NOTE | 2019-09-29 15:21 | NUR ---
PATIENT BACK FROM CT placed back on oxygen at 2L/min via nasal cannula. Bed is locked, in the lowest position, side rails up x2, and call light is in reach. Patient was encouraged to call for assistance as needed.
[2019-09-29] MEDS: DexAMETHasone INJECTION 10 MG in D5W 5% 50 ML IV SCH (15:30)
[2019-09-29 17:00] VITALS: BP 142/83
--- NOTE | 2019-09-29 19:30 | NUR ---
Opening Shift Note Assumed care of patient, awake and alert. No S/S of distress/SOB noted. Instructed on POC and to call for assist PRN. Bed is in lowest locked position with bed rails up x2 and call light is within reach. Seizure precautions in place with bed rails padded.
--- NOTE | 2019-09-29 20:43 | NUR ---
Called and left message to DR Vicente: Patient requesting sleeping pill Damirien at this time. No order for sleeping pill. Called and left message on answer machine regarding patient wanting sleeping pill. Waiting for call back.
--- NOTE | 2019-09-29 21:55 | NUR ---
Dr Vicente called back: Dr Vicente called back. Notified that patient is requesting sleeping pill. New orders received. To place orders.
[2019-09-29 22:00] VITALS: BP 151/94
[2019-09-29] MEDS ORDERED: ZOLPIDEM TARTRATE 5 MG TAB PO PRN (22:15)
--- NOTE | 2019-09-29 22:15 | NUR ---
Respiratory note: PATIENT NOT READY TO GO ON CPAP AT THIS TIME. PT IS AWAKE AND ALERT, NO RESP DISTRESS NOTED. HR 67, RR 16, SPO2 97% ON 1L N/C. PT IS WAITING FOR MEDS BEFORE GOING ON CPAP.
[2019-09-29] MEDS: ATORVASTATIN 20 MG TAB PO SCH (22:27)
[2019-09-29] MEDS: PRAMIPEXOLE DIHYDROCHLORIDE MO 0.25 MG TAB PO SCH (22:29)
--- NOTE | 2019-09-29 23:19 | NUR ---
RT NOTE PT PLACED ON HOSPITAL OWNED HOME CPAP UNIT # RESPIRATORY 2 WITH LARGE MASK ON STATED SETTINGS OF APAP 4-15 CMH2O. CPAP IS PLUGGED TO RED OUTLET. HUMIDIFIER FILLED TO FILL LINE AND SET TO 1. PT IS ON BEDSIDE POX PER PROTOCOL. ALARMS ARE AUDIBLE TO NURSES STATION. PT APPEARS TO TOLERATE WELL. PT AWARE TO CALL IF ADJUSTMENTS NEED TO BE MADE OR ANY OTHER QUESTIONS. CONT ORDERED Addendum: 09/29/19 at 2332 by Beth Avilez RT Amended: Links added.
--- NOTE | 2019-09-30 00:35 | NUR ---
RT NOTE ROUTINE CPAP CHECK DONE. PT IS ON HOSPITAL OWNED HOME CPAP UNIT # RESPIRATORY 2 WITH LARGE MASK ON STATED SETTINGS OF APAP 4-15 CMH2O. CPAP IS PLUGGED TO RED OUTLET. HUMIDIFIER ADEQUATE AND SET TO 1. PT IS ON BEDSIDE POX PER PROTOCOL. ALARMS ARE AUDIBLE TO NURSES STATION. PT IS SLEEPING AND APPEARS TO TOLERATE WELL. CONT ORDERED Addendum: 09/30/19 at 0038 by Beth Avilez RT Amended: Links added.
--- NOTE | 2019-09-30 02:04 | NUR ---
RT NOTE ROUTINE CPAP CHECK DONE. PT IS ON HOSPITAL OWNED HOME CPAP UNIT # RESPIRATORY 2 WITH LARGE MASK ON STATED SETTINGS OF APAP 4-15 CMH2O. CPAP IS PLUGGED TO RED OUTLET. HUMIDIFIER ADEQUATE AND SET TO 1. PT IS ON BEDSIDE POX PER PROTOCOL. ALARMS ARE AUDIBLE TO NURSES STATION. PT IS SLEEPING AND APPEARS TO TOLERATE WELL. NO CHANGES MADE AT THIS TIME. CONT ORDERED Addendum: 09/30/19 at 0208 by Beth Avilez RT Amended: Links added.
[2019-09-30] MEDS: MORPHINE SULF INJ 2 MG/ML SYRINGE 1ML IV PRN ×2 (03:42→15:18)
[2019-09-30 05:03] VITALS: BP 149/96
[2019-09-30] MEDS: SODIUM CHLORIDE 0.9% 1,000 ML IV SCH ×2 (05:29→15:15)
[2019-09-30] MEDS: GABAPENTIN 300 MG CAP PO SCH ×2 (05:55→13:14)
--- NOTE | 2019-09-30 07:15 | NUR ---
OPENING NOTE Assumed care of patient at 0700. Patient awake in bed, alert and oriented X4. Respiratory sounds clear, unlabored and equal bilaterally. Educated patient on POC. Instructed to press call light for needs. Patient verbalized understanding. Bed locked, in lowest position, with 2 side rails up. HOB elevated at least 30 degrees and call light within reach. Will continue to monitor q1hr and PRN
--- NOTE | 2019-09-30 07:50 | NUR ---
Respiratory note: PT TAKEN OFF CPAP AT THIS TIME. NO RESPIRATORY DISTRESS NOTED. SPO2 96% ON 2L NC HR 65 RR 16.
[2019-09-30 08:00] VITALS: BP 155/80
[2019-09-30] MEDS: FERROUS SULFATE 325 MG TAB PO SCH ×2 (08:28→17:17)
[2019-09-30] MEDS: CALCIUM ACETATE 667 MG CAP PO SCH ×2 (08:28→17:17)
[2019-09-30 08:33] VITALS: BP 155/80
[2019-09-30] MEDS: CHOLECALCIFEROL (VITD3) 1,000UNIT=25mCg TAB PO SCH (09:15)
[2019-09-30] MEDS: MAGNESIUM OXIDE 400 MG TAB PO SCH (09:16)
[2019-09-30] MEDS: CITALOPRAM HYDROBR 20 MG TAB PO SCH (09:17)
[2019-09-30] MEDS: levETIRAcetam 500 MG TAB PO SCH (09:17)
[2019-09-30] MEDS: FUROSEMIDE 20 MG TAB PO SCH (09:18)
[2019-09-30] MEDS: ASPirin 81 mg TAB PO SCH (09:19)
[2019-09-30] MEDS: CLOPIDOGREL BISULFATE 75 MG TAB PO SCH (09:19)
[2019-09-30] MEDS: CYANOCOBALAMIN 500 MCG TAB PO SCH (09:19)
[2019-09-30] MEDS: LORATADINE 10 MG TAB PO SCH (09:20)
[2019-09-30] MEDS: POTASSIUM CHL 10 Meq TABLET PO SCH (09:20)
[2019-09-30 13:00] VITALS: BP 151/71
[2019-09-30] MEDS: DexAMETHasone INJECTION 10 MG in D5W 5% 50 ML IV SCH (15:24)
[2019-09-30 16:48] VITALS: BP 144/73
[2019-09-30 16:52] VITALS: BP 144/73
--- NOTE | 2019-09-30 18:50 | NUR ---
Discharge Home Discharge instructions given as ordered. Encourage to follow up with PMD as instructed. All questions and concerns addressed. Patient verbalized understanding. Medication reconciliation form completed and copy given to patient. IV removed with catheter intact, pressure dressing applied. Telemetry unit returned to ICU. Patient taken to vehicle via wheelchair with all personal belongings, accompanied by staff. No distress noted at time of departure.
== END 2019-09-30 18:50 | disposition home or self-care (01) | DRG 65 ==
LOC: ER 19:55 → TELE 19:56 → TELE-CENTR 09-28 12:35
PROVIDERS: ADMIT Internal Medicine; ATTEND Internal Medicine
PROC: 5A09357 Assistance with Respiratory Ventilation, Less than 24 Consecutive Hours, Continuous Positive Airway Pressure (ICD-10-PCS; principal; 2019-09-28)
PROC: 5A09357 Assistance with Respiratory Ventilation, Less than 24 Consecutive Hours, Continuous Positive Airway Pressure (ICD-10-PCS; 2019-09-29)
DX: I63.9 Cerebral infarction, unspecified (principal); G45.9 Transient cerebral ischemic attack, unspecified; G43.109 Migraine with aura, not intractable, without status migrainosus; G40.409 Other generalized epilepsy and epileptic syndromes, not intractable, without status epilepticus; G47.33 Obstructive sleep apnea (adult) (pediatric); F41.9 Anxiety disorder, unspecified; E11.40 Type 2 diabetes mellitus with diabetic neuropathy, unspecified; G25.81 Restless legs syndrome; E03.9 Hypothyroidism, unspecified; E78.5 Hyperlipidemia, unspecified; F32.9 Major depressive disorder, single episode, unspecified; G47.10 Hypersomnia, unspecified; H54.7 Unspecified visual loss; I10 Essential (primary) hypertension; I25.10 Atherosclerotic heart disease of native coronary artery without angina pectoris; E66.9 Obesity, unspecified; Z21 Asymptomatic human immunodeficiency virus [HIV] infection status; G89.29 Other chronic pain; J45.909 Unspecified asthma, uncomplicated
CPT/HCPCS: 36415; 70450; 71045; 72040; 72070; 80048; 80053; 80164; 80307; 81001; 82542; 83735; 83880; 84100; 84484; 85025; 85652; 93005; 94660; G0378; J1100; J2405; J7060

== ENCOUNTER 2019-10-03 15:05 | Inpatient (IN) | payer MEDICARE, MEDICAID ==
[~2019-10-03] VITALS: Ht 154.9 cm; Wt 82.5 kg
[~2019-10-03 15:05] MED LIST changes: +LEVE500T22 PO; -LEVE500T32 PO; -METH-532 PO
[2019-10-03 16:11] LABS: Basophils # (auto) 0 10 ^3/uL (0-0.2); Basophils % (auto) 0.6 % (0.0-2.0); Eosinophils # (auto) 0.2 10 ^3/uL (0-0.8); Eosinophils % (auto) 2.6 % (0.0-7.0); Hematocrit 40.3 % (36.0-46.0); Hemoglobin 13.2 g/dL (12.2-16.2); Lymphocytes # (auto) 2.3 10 ^3/uL (0.4-5.4); Lymphocytes % (auto) 33.1 % (10.0-50.0); Mean Corpuscular Hemoglobin 29.8 pg (28.0-32.0); Mean Corpuscular Hgb Conc. 32.7 g/dL (32.0-36.0); Mean Corpuscular Volume 91.1 fL (80.0-100.0); Monocytes # (auto) 0.8 10 ^3/uL (0-1.3); Monocytes % (auto) 11.6 % (0.0-12.0); Neutrophils # (auto) 3.6 10 ^3/uL (1.6-8.6); Neutrophils % (auto) 52.1 % (37.0-80.0); Nucleated Red Blood Cells % 0.1 %; Platelet Count (auto) 300 10^3/uL (140-450); Red Blood Cells 4.42 10^6/uL (4.0-5.20); White Blood Cell 6.9 10^3/uL (4.4-10.8)
[2019-10-03 16:23] LABS: INR 1.07 (0.9-1.15); Partial Thromboplastin Time 24.7 sec (23.64-32.05)
[2019-10-03 16:26] LABS: Albumin 3.8 g/dL (3.4-5.0); Calcium 8.6 mg/dL (8.5-10.1); Potassium 3.8 mmol/L (3.5-5.1)
[2019-10-03 16:31] LABS: BUN/Creatinine Ratio 18.8; Bilirubin, Total 0.4 mg/dL (0.2-1.0); Total Protein 6.5 g/dL (6.4-8.2)
[2019-10-03 17:25] LABS: Urine Bacteria NONE SEEN /hpf (None Seen); Urine Blood Negative /uL (Negative); Urine Mucus FEW (None Seen); Urine Specific Gravity 1.011 (1.001-1.035); Urine WBC 6 /hpf (0 - 5)
[2019-10-03 17:37] LABS: Alcohol, Urine < 3.0 mg/dL (0-10); Amphetamine Screen, Urine NEGATIVE (NEGATIVE); Barbiturate Scree,Urine NEGATIVE (NEGATIVE); Benzodiazephine Screen, Urine NEGATIVE (NEGATIVE); Cannabinoid Screen, Urine NEGATIVE (NEGATIVE); Cocaine Screen, Urine NEGATIVE (NEGATIVE); Opiate Scree,Urine NEGATIVE (NEGATIVE); Phencyclidine Screen, Urine NEGATIVE (NEGATIVE)
[2019-10-03] MEDS ORDERED: cefTRIAXone 1GM/50ML D5W 50 ML IV ONE (17:45)
[2019-10-03] MEDS ORDERED: ONDANSETRON HCL 4 MG/2 ML VIAL IV ONE (19:15)
[2019-10-03] MEDS ORDERED: MORPHINE SULF INJ 2 MG/ML SYRINGE 1ML IV ONE (19:15)
[2019-10-03] MEDS ORDERED: NITROGLYCERIN 0.4 MG SL TAB SL PRN (20:15)
[2019-10-03] MEDS ORDERED: MORPHINE SULF INJ 2 MG/ML SYRINGE 1ML IV PRN (20:15)
[2019-10-03] MEDS ORDERED: HYDROcodone-ACET 10/325MG TAB PO PRN (20:15)
--- NOTE | 2019-10-03 22:22 | NUR ---
Patient admitted to room 279A Patient admitted to room 279A, telemetry #60, VS 126/76, HR 75, RR 18, T 98.3, 95%. A&Ox4, respirations even and non-labored with no s/s of distress. Bilateral PERRLA intact. No facial drooping or slurred speech noted. Smile noted on right side mouth but unable to smile on the left side mouth. Right hand assessment analyst strong, left hand weak/delayed. Lower right leg push/pull strong, left leg weak/delayed. Patient stated that her left side is numb and that she has little to no feeling. Patient claimed that she has no difficulty with swallowing and no issues with walking. Discussed POC with patient and up-coming consults, patient verbalized understanding. Bed in lowest locked position with 2 side rails up. Patient advised to call for assistance, call light within reach. Will continue to monitor Q1hr and PRN.
[2019-10-03 22:40] VITALS: BP 126/76
[2019-10-03 22:41] VITALS: BP 126/76
[2019-10-04] MEDS: MORPHINE SULF INJ 2 MG/ML SYRINGE 1ML IV PRN ×4 (00:20→23:04)
--- NOTE | 2019-10-04 00:20 | NUR ---
Pain Patient c/o 10/10 pain to lower back. Administered Morphine 2 mg and Zofran 4 mg per EMAR. Will continue to monitor.
[2019-10-04] MEDS: ONDANSETRON HCL 4 MG/2 ML VIAL IV PRN ×2 (00:21→23:04)
[2019-10-04] MEDS: levETIRAcetam 500 MG TAB PO SCH ×4 (00:21→21:37)
[2019-10-04] MEDS: CHOLECALCIFEROL (VITD3) 1,000IU=25mCg TAB PO SCH ×3 (00:22→21:44)
[2019-10-04] MEDS: GABAPENTIN 300 MG CAP PO SCH ×5 (00:22→21:36)
[2019-10-04] MEDS: CALCIUM ACETATE 667 MG CAP PO SCH ×3 (00:22→17:24)
[2019-10-04] MEDS: PRAMIPEXOLE DIHYDROCHLORIDE MO 0.25 MG TAB PO SCH ×4 (00:23→21:36)
--- NOTE | 2019-10-04 00:50 | NUR ---
Pain reassessed Patient stated that her pain was much better and that she was now a 4/10 pain which was now tolerable for her. Will continue to monitor.
[2019-10-04] MEDS: ZOLPIDEM TARTRATE 5 MG TAB PO PRN (01:26)
[2019-10-04 05:00] VITALS: BP 101/60
[2019-10-04 06:16] LABS: Basophils # (auto) 0 10 ^3/uL (0-0.2); Basophils % (auto) 0.7 % (0.0-2.0); Eosinophils # (auto) 0.3 10 ^3/uL (0-0.8); Eosinophils % (auto) 4.7 % (0.0-7.0); Hematocrit 39.6 % (36.0-46.0); Hemoglobin 12.9 g/dL (12.2-16.2); Lymphocytes % (auto) 52.8 % (10.0-50.0); Mean Corpuscular Hemoglobin 29.9 pg (28.0-32.0); Mean Corpuscular Hgb Conc. 32.5 g/dL (32.0-36.0); Monocytes # (auto) 0.5 10 ^3/uL (0-1.3); Monocytes % (auto) 8.6 % (0.0-12.0); Neutrophils # (auto) 1.9 10 ^3/uL (1.6-8.6); Neutrophils % (auto) 33.2 % (37.0-80.0); Nucleated Red Blood Cells % 0.1 %; Platelet Count (auto) 229 10^3/uL (140-450); Red Cell Distribution Width 14.2 % (11.8-14.3); White Blood Cell 5.6 10^3/uL (4.4-10.8)
[2019-10-04 06:36] LABS: Potassium 4.1 mmol/L (3.5-5.1)
[2019-10-04 06:42] LABS: Albumin 3.1 g/dL (3.4-5.0); BUN/Creatinine Ratio 16.7; Bilirubin, Total 0.3 mg/dL (0.2-1.0); Calcium 8.2 mg/dL (8.5-10.1); Total Protein 5.7 g/dL (6.4-8.2)
--- NOTE | 2019-10-04 07:05 | NUR ---
Opening Shift Note: Assumed care of patient, awake and alert. No S/S of distress/SOB. Bed in lowest locked position, side rails up x 2, call light within reach. Side rails padded. Patient instructed on POC and to call for assist PRN, will continue to monitor for changes Q1hr and PRN. Addendum: 10/04/19 at 1317 by DIVINE ROBIN RN RN Bed alarm activated for patient safety.
--- NOTE | 2019-10-04 07:42 | NUR ---
Patient states chest pressure 8/10. EKG performed and read by Cecily Schroeder NP.
[2019-10-04] MEDS: FERROUS SULFATE 325 MG TAB PO SCH (08:01)
--- NOTE | 2019-10-04 08:13 | NUR ---
Patient states "I have had three seizures this morning." This nurse witnessed patient having rapid movement on one occasion, lasting approximately 15 seconds. Patient alert and oriented x 3 within one minute of rapid movement episode. Addendum: 10/04/19 at 1309 by DIVINE ROBIN RN RN Patient placed on 2 LPM O2 at this time.
[2019-10-04 09:04] VITALS: BP 138/77
[2019-10-04] MEDS: ASPirin 81 mg TAB PO SCH (09:35)
[2019-10-04] MEDS: MAGNESIUM OXIDE 400 MG TAB PO SCH (09:35)
[2019-10-04] MEDS: LORATADINE 10 MG TAB PO SCH (09:35)
[2019-10-04] MEDS: POTASSIUM CHL 10 Meq TABLET PO SCH (09:36)
[2019-10-04] MEDS: CLOPIDOGREL BISULFATE 75 MG TAB PO SCH (09:36)
--- NOTE | 2019-10-04 10:47 | NUR ---
DR. CRENSHAW: Dr. Vicente at bedside. Discussed POC with patient. Patient verbally agreed.
[2019-10-04 12:24] VITALS: BP 133/73
--- NOTE | 2019-10-04 12:51 | NUR ---
Patient states "I just had another seizure, I felt it coming on and called for you." Patient currently A&Ox4, vital signs stable. Attempted to contact DR. Vicente at this time. Will continue to monitor.
--- NOTE | 2019-10-04 13:07 | NUR ---
New orders received from Dr. Vicente, read back and verified.
[2019-10-04] MEDS ORDERED: LORazepam 2MG/ML-1ML VIAL IV PRN (13:15)
[2019-10-04 16:43] VITALS: BP 136/56
[2019-10-04] MEDS ORDERED: ATORVASTATIN 20 MG TAB PO SCH (18:00)
[2019-10-04] MEDS: ATORVASTATIN 20 MG TAB PO SCH (18:00)
[2019-10-04] MEDS: SODIUM CHLORIDE 0.9% 1,000 ML IV SCH (18:42)
[2019-10-04] MEDS: buPROPion HCL 75 MG TAB PO SCH (18:43)
--- NOTE | 2019-10-04 18:51 | NUR ---
CLOSING NOTE: Patient resting in bed. No S/S of distress at this time. Bed alarm on, side rails padded. Care endorsed to NOC RN
--- NOTE | 2019-10-04 19:35 | NUR ---
Opening shift note Patient A&Ox4, sitting up in bed. Respirations even and non-labored with no s/s of distress. Discussed POC, call for assist, and up-coming tele/psych consult. Patient verbalized understanding. Bed lowered/locked with 2 side rails up, seizure precautions in place. Call light within reach. BSC in place with bed alarm on. Will continue to monitor.
[2019-10-04] MEDS: METOCLOPRAMIDE HCL 10 MG TAB PO SCH (21:39)
--- NOTE | 2019-10-04 21:56 | NUR ---
Contacted Tele/Med Request Placed consult, was informed that they would call back when consult was ready.
[2019-10-04 22:00] VITALS: BP 100/54
--- NOTE | 2019-10-04 22:11 | NUR ---
Contacted by Hiram in the ED Switched SOC monitors Janette for tele/psych consult in room 279A.
--- NOTE | 2019-10-04 22:51 | NUR ---
Tele/psych consult complete Returned Conde to ED, replaced Marta in charge office.
--- NOTE | 2019-10-04 23:12 | NUR ---
Pain Patient c/o 10/10 neck pain and severe headache. Administered 2 mg morphine per EMAR. Will continue to monitor.
--- NOTE | 2019-10-04 23:35 | NUR ---
Pain reassessed Patient sleeping, eyes closed, respirations even and non-labored with no s/s of distress. Will continue to monitor.
--- NOTE | 2019-10-05 04:03 | NUR ---
PUBLIC AREA ATTENDANT notified of decreased BP Patient BP 84/57, HR 60. Patient easily aroused by name. Patient had stated on admission to [facility] that she normally runs 90/50. Patient repositioned. Vitals retaken: BP 113/69, HR 60, 95%. Will continue to monitor.
[2019-10-05 05:00] VITALS: BP 87/53
[2019-10-05] MEDS: buPROPion HCL 75 MG TAB PO SCH ×2 (06:19→18:05)
[2019-10-05] MEDS: METOCLOPRAMIDE HCL 10 MG TAB PO SCH ×3 (06:20→21:53)
[2019-10-05] MEDS: SODIUM CHLORIDE 0.9% 1,000 ML IV SCH ×2 (06:23→20:54)
--- NOTE | 2019-10-05 06:39 | NUR ---
Assisted patient to BSC Changed gown and gualberto. 350 ml of yellow, clear urine voided.
--- NOTE | 2019-10-05 07:17 | NUR ---
Closing shift note Patient A&Ox4, no s/s of distress or SOB. Endorsed care to day shift RN, Dalia.
--- NOTE | 2019-10-05 07:18 | NUR ---
Opening Shift Note: Assumed care of patient, awake and alert. No S/S of distress/SOB or pain. Bed in lowest locked position, side rails up x 2, call light within reach. Side rails padded for patient safety. Patient instructed on POC and to call for assist PRN, will continue to monitor for changes Q1hr and PRN.
[2019-10-05] MEDS: CALCIUM ACETATE 667 MG CAP PO SCH ×2 (07:45→18:05)
[2019-10-05] MEDS: FERROUS SULFATE 325 MG TAB PO SCH (07:45)
[2019-10-05 09:00] VITALS: BP 120/82
[2019-10-05] MEDS: DexAMETHasone INJECTION 10 MG in D5W 5% 50 ML IV SCH (10:29)
[2019-10-05] MEDS: MAGNESIUM OXIDE 400 MG TAB PO SCH (10:30)
[2019-10-05] MEDS: CLOPIDOGREL BISULFATE 75 MG TAB PO SCH (10:30)
[2019-10-05] MEDS: CHOLECALCIFEROL (VITD3) 1,000IU=25mCg TAB PO SCH ×2 (10:30→21:52)
[2019-10-05] MEDS: levETIRAcetam 500 MG TAB PO SCH ×2 (10:31→21:51)
[2019-10-05] MEDS: GABAPENTIN 300 MG CAP PO SCH ×2 (10:31→21:53)
[2019-10-05] MEDS: ASPirin 81 mg TAB PO SCH (10:31)
[2019-10-05] MEDS: LORATADINE 10 MG TAB PO SCH (10:33)
[2019-10-05] MEDS: POTASSIUM CHL 10 Meq TABLET PO SCH (10:33)
[2019-10-05 13:00] VITALS: BP 132/85
[2019-10-05 16:58] VITALS: BP 127/67
[2019-10-05] MEDS: ATORVASTATIN 20 MG TAB PO SCH (18:04)
--- NOTE | 2019-10-05 18:50 | NUR ---
Closing note: Patient resting in bed. No S/S of distress or SOB at this time. Side rails padded for patient safety. Care endorsed to NOC RN.
--- NOTE | 2019-10-05 19:12 | NUR ---
Opening Shift Note: Assumed care of patient. Patient is awake, alert, and oriented X 4. No S/S of respiratory distress noted. No SOB reported. Respirations are regular and non-labored. Bed in lowest locked position, side rails up x 2, call light within reach, bed alarm is on. Side rails padded. Patient instructed on POC and to call for assistance as needed. Will continue to monitor for changes Q1hr and PRN.
[2019-10-05 20:00] VITALS: BP 155/104
[2019-10-05] MEDS: MORPHINE SULF INJ 2 MG/ML SYRINGE 1ML IV PRN (20:54)
[2019-10-05 21:30] VITALS: BP 155/104
[2019-10-05] MEDS: PRAMIPEXOLE DIHYDROCHLORIDE MO 0.25 MG TAB PO SCH (21:53)
[2019-10-05] MEDS: ZOLPIDEM TARTRATE 5 MG TAB PO PRN (21:57)
[2019-10-06 05:00] VITALS: BP 159/106
[2019-10-06] MEDS: METOCLOPRAMIDE HCL 10 MG TAB PO SCH ×3 (06:11→22:12)
[2019-10-06] MEDS: buPROPion HCL 75 MG TAB PO SCH ×2 (06:20→18:44)
--- NOTE | 2019-10-06 07:17 | NUR ---
Opening Shift Note: Received report from NOC RN. Assumed care of patient. Patient sleeping at this time. No S/S of distress/SOB or pain. Bed in lowest locked position, side rails up x 2, call light within reach. Side rails padded for patient safety. Patient will be instructed on POC and to call for assist PRN, will continue to monitor for changes Q1hr and PRN.
[2019-10-06] MEDS: FERROUS SULFATE 325 MG TAB PO SCH (08:09)
[2019-10-06] MEDS: CALCIUM ACETATE 667 MG CAP PO SCH ×2 (08:10→18:43)
[2019-10-06 09:00] VITALS: BP 147/85
[2019-10-06] MEDS: MAGNESIUM OXIDE 400 MG TAB PO SCH (09:39)
[2019-10-06] MEDS: ASPirin 81 mg TAB PO SCH (09:39)
[2019-10-06] MEDS: MORPHINE SULF INJ 2 MG/ML SYRINGE 1ML IV PRN ×4 (09:39→23:08)
[2019-10-06] MEDS: GABAPENTIN 300 MG CAP PO SCH ×2 (09:39→22:12)
[2019-10-06] MEDS: levETIRAcetam 500 MG TAB PO SCH ×2 (09:39→22:12)
[2019-10-06] MEDS: POTASSIUM CHL 10 Meq TABLET PO SCH (09:39)
[2019-10-06] MEDS: LORATADINE 10 MG TAB PO SCH (09:40)
[2019-10-06] MEDS: CLOPIDOGREL BISULFATE 75 MG TAB PO SCH (09:40)
[2019-10-06] MEDS: CHOLECALCIFEROL (VITD3) 1,000IU=25mCg TAB PO SCH ×2 (09:40→22:19)
[2019-10-06] MEDS: SODIUM CHLORIDE 0.9% 1,000 ML IV SCH ×2 (10:00→23:49)
[2019-10-06] MEDS: DexAMETHasone INJECTION 10 MG in D5W 5% 50 ML IV SCH (10:58)
[2019-10-06 13:00] VITALS: BP 149/88
[2019-10-06 17:00] VITALS: BP 161/90
[2019-10-06] MEDS: ATORVASTATIN 20 MG TAB PO SCH (18:43)
--- NOTE | 2019-10-06 18:53 | NUR ---
CLOSING NOTE: Patient resting in bed. No S/S of distress or SOB. Care endorsed to NOC RN.
--- NOTE | 2019-10-06 19:18 | NUR ---
Opening Shift Note: Assumed care of patient. Patient is awake, alert, and oriented X 4. No S/S of respiratory distress noted. Respirations are regular and non-labored. Bed in lowest locked position, side rails up x 2, call light within reach, bed alarm is on for patient safety. Side rails padded. Patient instructed on POC and to call for assistance as needed. Will continue to monitor for changes Q1hr and PRN.
[2019-10-06 20:00] VITALS: BP 167/91
[2019-10-06 22:07] VITALS: BP 167/97
[2019-10-06] MEDS: ZOLPIDEM TARTRATE 5 MG TAB PO PRN (22:11)
[2019-10-06] MEDS: PRAMIPEXOLE DIHYDROCHLORIDE MO 0.25 MG TAB PO SCH (22:12)
[2019-10-07 01:41] VITALS: BP 167/97
[2019-10-07] MEDS: MORPHINE SULF INJ 2 MG/ML SYRINGE 1ML IV PRN ×2 (04:03→08:43)
[2019-10-07 05:30] VITALS: BP 154/92
[2019-10-07] MEDS: METOCLOPRAMIDE HCL 10 MG TAB PO SCH ×2 (06:13→14:00)
[2019-10-07] MEDS: buPROPion HCL 75 MG TAB PO SCH (06:23)
--- NOTE | 2019-10-07 07:20 | NUR ---
Opening Shift Note: Assumed care of patient, awake and alert. No S/S of distress/SOB. Bed in lowest locked position, side rails up x 2, call light within reach. Patient instructed on POC and to call for assist PRN, will continue to monitor for changes Q1hr and PRN.
--- NOTE | 2019-10-07 07:20 | NUR ---
Respiratory note: PT TAKEN OFF CPAP AT THIS TIME. NO DISTRESS NOTED. SPO2 97% ON RA HR 62 RR 16.
[2019-10-07] MEDS: FERROUS SULFATE 325 MG TAB PO SCH (08:09)
[2019-10-07] MEDS: CALCIUM ACETATE 667 MG CAP PO SCH ×2 (08:10→18:00)
[2019-10-07] MEDS: MAGNESIUM OXIDE 400 MG TAB PO SCH (08:43)
[2019-10-07] MEDS: GABAPENTIN 300 MG CAP PO SCH (08:44)
[2019-10-07] MEDS: levETIRAcetam 500 MG TAB PO SCH (08:44)
[2019-10-07] MEDS: POTASSIUM CHL 10 Meq TABLET PO SCH (08:44)
[2019-10-07] MEDS: CLOPIDOGREL BISULFATE 75 MG TAB PO SCH (08:44)
[2019-10-07] MEDS: ASPirin 81 mg TAB PO SCH (08:44)
[2019-10-07] MEDS: LORATADINE 10 MG TAB PO SCH (08:45)
[2019-10-07] MEDS: CHOLECALCIFEROL (VITD3) 1,000IU=25mCg TAB PO SCH (08:45)
[2019-10-07 09:46] VITALS: BP 146/78
--- NOTE | 2019-10-07 12:29 | NUR ---
Nutrition Assessment Notes Please refer to link for full assessment notes. Est Energy needs: [id number] kcals (17-20 kcal/kgBW) Est Protein needs: 57-76 gms/day (1.5-2.0 gm/kgIBW) Will continue to monitor and reassess prn. Addendum: 10/07/19 at [address] Amended: Links added.
[2019-10-07] MEDS: SODIUM CHLORIDE 0.9% 1,000 ML IV SCH (12:40)
[2019-10-07 13:00] VITALS: BP 153/88
[2019-10-07 16:43] VITALS: BP 141/89
[2019-10-07 16:48] VITALS: BP 141/98
[2019-10-07] MEDS: ATORVASTATIN 20 MG TAB PO SCH (18:00)
== END 2019-10-07 18:13 | disposition home or self-care (01) | DRG 101 ==
LOC: ER 15:05 → TELE-WESTW 15:06
PROVIDERS: ADMIT Internal Medicine; ATTEND Internal Medicine
PROC: 5A09357 Assistance with Respiratory Ventilation, Less than 24 Consecutive Hours, Continuous Positive Airway Pressure (ICD-10-PCS; principal; 2019-10-06)
DX: G40.409 Other generalized epilepsy and epileptic syndromes, not intractable, without status epilepticus (principal); G45.9 Transient cerebral ischemic attack, unspecified; G43.109 Migraine with aura, not intractable, without status migrainosus; G47.33 Obstructive sleep apnea (adult) (pediatric); G47.10 Hypersomnia, unspecified; G25.81 Restless legs syndrome; I49.9 Cardiac arrhythmia, unspecified; E03.9 Hypothyroidism, unspecified; E11.22 Type 2 diabetes mellitus with diabetic chronic kidney disease; E78.5 Hyperlipidemia, unspecified; G56.02 Carpal tunnel syndrome, left upper limb; I12.9 Hypertensive chronic kidney disease with stage 1 through stage 4 chronic kidney disease, or unspecified chronic kidney disease; I25.10 Atherosclerotic heart disease of native coronary artery without angina pectoris; I25.2 Old myocardial infarction; J45.909 Unspecified asthma, uncomplicated; N18.9 Chronic kidney disease, unspecified; G89.29 Other chronic pain; M54.5 Low back pain; F41.9 Anxiety disorder, unspecified; F32.9 Major depressive disorder, single episode, unspecified; Z79.02 Long term (current) use of antithrombotics/antiplatelets; Z79.82 Long term (current) use of aspirin; Z79.899 Other long term (current) drug therapy; Z83.3 Family history of diabetes mellitus; Z86.73 Personal history of transient ischemic attack (TIA), and cerebral infarction without residual deficits; Z90.710 Acquired absence of both cervix and uterus; Z95.0 Presence of cardiac pacemaker; Z98.1 Arthrodesis status; Z98.61 Coronary angioplasty status; Z98.84 Bariatric surgery status; Z88.5 Allergy status to narcotic agent; Z88.1 Allergy status to other antibiotic agents; Z91.030 Bee allergy status; Z91.018 Allergy to other foods; Z21 Asymptomatic human immunodeficiency virus [HIV] infection status
CPT/HCPCS: 36415; 70450; 80053; 80164; 80307; 81001; 85025; 85610; 85730; 93886; 94660; 96365; 96375; G0378; J0696; J1100; J2405; J7060

== ENCOUNTER 2019-11-20 10:43 | Inpatient (IN) | payer MEDICARE, MEDICAID ==
[~2019-11-20] VITALS: Ht 154.9 cm; Wt 87.6 kg
[2019-11-20] MEDS ORDERED: ASPirin 81 mg TAB PO ONE (11:15)
[2019-11-20] MEDS ORDERED: NITROGLYCERIN 0.4 MG SL TAB SL ONE (11:30)
[2019-11-20 12:04] LABS: Basophils # (auto) 0 10 ^3/uL (0-0.2); Basophils % (auto) 0.9 % (0.0-2.0); Eosinophils # (auto) 0.2 10 ^3/uL (0-0.8); Eosinophils % (auto) 3.9 % (0.0-7.0); Hematocrit 37.2 % (36.0-46.0); Hemoglobin 12.2 g/dL (12.2-16.2); Lymphocytes # (auto) 1.7 10 ^3/uL (0.4-5.4); Mean Corpuscular Hgb Conc. 32.8 g/dL (32.0-36.0); Mean Corpuscular Volume 91.6 fL (80.0-100.0); Monocytes # (auto) 0.6 10 ^3/uL (0-1.3); Monocytes % (auto) 12.4 % (0.0-12.0); Neutrophils # (auto) 2.4 10 ^3/uL (1.6-8.6); Neutrophils % (auto) 48.8 % (37.0-80.0); Nucleated Red Blood Cells % 0.1 %; Platelet Count (auto) 237 10^3/uL (140-450); Red Blood Cells 4.07 10^6/uL (4.0-5.20)
[2019-11-20] MEDS ORDERED: cloNIDine HCL 0.1 MG TAB PO ONE (12:15)
[2019-11-20 12:16] LABS: Albumin 3.4 g/dL (3.4-5.0); Anion Gap 5 (5-15); Calcium 8.7 mg/dL (8.5-10.1); Carbon Dioxide 28 mmol/L (21-32); Chloride 109 mmol/L (98-107); Glucose 92 mg/dL (74-106); Sodium 142 mmol/L (136-145)
[2019-11-20 12:24] LABS: Alanine Aminotransferase 20 U/L (13-56); Alkaline Phosphatase 115 U/L (45-117); Aspartate Aminotransferase 13 U/L (15-37); Bilirubin, Total 0.2 mg/dL (0.2-1.0); GFR African American 84 mL/min; GFR Non-African American 69 mL/min; Total Protein 6.5 g/dL (6.4-8.2)
[2019-11-20 12:32] LABS: Blood Urea Nitrogen 15 mg/dL (7-18)
[2019-11-20] MEDS ORDERED: ONDANSETRON HCL 4 MG/2 ML VIAL IV PRN (12:45)
[2019-11-20] MEDS ORDERED: hydrALAZINE HCL 20 MG/ML VL IV PRN (12:45)
[2019-11-20] MEDS ORDERED: NITROGLYCERIN 0.4 MG SL TAB SL PRN (12:45)
[2019-11-20 13:06] LABS: INR 0.98 (0.9-1.15); Partial Thromboplastin Time 25.6 sec (23.64-32.05)
[2019-11-20] MEDS ORDERED: HCTZ 25 MG TAB PO ONE (13:14)
[2019-11-20] MEDS ORDERED: LISINOPRIL 20 MG TAB PO ONE (13:30)
--- NOTE | 2019-11-20 14:49 | NUR ---
Telemetry admit from ER REGINACLAUDIO Bishop admitted to Telemetry unit after SBAR received. Patient oriented to Breanna henao RN, unit, room, bed, and unit policies regarding patient care and visiting hours. Patient now on continuous telemetry monitoring, tele box # 54 and telemetry reading on arrival to unit is SR 69. Patient is ambulatory, weighed by bedscale and encouraged to call if they need something. All questions and concerns addressed, patient verbalized understanding.
[2019-11-20 15:27] VITALS: BP 104/64
--- NOTE | 2019-11-20 15:40 | NUR ---
CALLED AND LEFT A MESSAGE FOR DR. DIAMOND TO INFORM HIM PATIENT IS REQUESTING TO HAVE AMBIEN AT NIGHT, PER PATIENT SHE TAKES IT AT NIGHT. AWAITING MD'S CALLBACK
[2019-11-20] MEDS ORDERED: ARIP10TA29 PO (16:09)
[2019-11-20] MEDS ORDERED: TIZA2CAP7 PO (16:09)
[2019-11-20] MEDS ORDERED: PANT40T PO (16:09)
[2019-11-20] MEDS ORDERED: ISO20T PO (16:09)
[2019-11-20] MEDS ORDERED: DIVA500T13 PO (16:09)
[2019-11-20] MEDS ORDERED: POTA10TA32 PO (16:09)
[2019-11-20] MEDS ORDERED: PRAM0.12 PO (16:09)
[2019-11-20] MEDS ORDERED: CYAN100042 PO (16:09)
[2019-11-20] MEDS ORDERED: CHOL500023 PO (16:09)
[2019-11-20] MEDS ORDERED: LEVE100020 PO (16:09)
[2019-11-20] MEDS ORDERED: ASPI-498 PO (16:10)
[2019-11-20] MEDS ORDERED: MECL12.514 PO (16:10)
[2019-11-20 17:00] VITALS: BP 97/66
[2019-11-20] MEDS: MORPHINE SULFATE 4 MG/ML SYR/VIAL IV PRN (17:46)
--- NOTE | 2019-11-20 17:46 | NUR ---
MEDICATED WITH MORPHINE 4MG PRN FOR 10/10 GENERALIZED PAIN. WILL REASSESS AND CONTINUE TO MONITOR FOR CHANGES
--- NOTE | 2019-11-20 18:37 | NUR ---
PATIENT CURRENTLY REPORTS SOME RELIEF WITH PAIN MED, 10/31. FINISHING UP WITH DINNER, IN PLEASANT MOOD, NO S/S OF DISTRESS. WILL ENDORSE CARE TO NOC SHIFT RN
--- NOTE | 2019-11-20 19:50 | NUR ---
OPENING SHIFT NOTE Assumed care of patient who is A&O x4. Currently on RA with no s/s of distress. Reports 9/10 chest pain. Declines Nitroglycerin per CP protocol. Stating, "That stuff never works for me". Informed patient that Morphine is not due until 2145. Patient verbalizes understanding and choses to wait for pain relief until Morphine is due. Patient is ambulatory without the use of assistive devices at baseline. PIV in left wrist is intact ad patent. Flushed with 10ml NS. POC discussed and patient verbalizes understanding. Bed is in low locked position and side rails are up and padded x2. Call light is within reach and patient encouraged to call for assistance when needed. Will continue to monitor for changes PRN.
--- NOTE | 2019-11-20 20:00 | NUR ---
Urine sample sent to lab via [facility] system.
[2019-11-20 20:49] LABS: Urine Bacteria FEW /hpf (None Seen); Urine Blood Negative /uL (Negative); Urine Specific Gravity 1.014 (1.001-1.035); Urine WBC 1 /hpf (0 - 5)
--- NOTE | 2019-11-20 21:16 | NUR ---
MD CONTACT Paged Dr. Vicente regarding continuation of patient's home medications. Awaiting call back.
--- NOTE | 2019-11-20 21:38 | NUR ---
MD CONTACT Received call form Dr. Vicente. New orders received. Read back and verified.
--- NOTE | 2019-11-20 21:40 | NUR ---
SCREW MACHINE SET UP OPERATOR reports a blood pressure of 87/52 on right arm and 141/68 on right calf. BP reassessed by this RN and is 95/66 on right arm. This is consistent with patient's baseline.
[2019-11-20] MEDS ORDERED: ZOLPIDEM TARTRATE 5 MG TAB PO PRN (21:45)
[2019-11-20] MEDS ORDERED: HYDROcodone-ACET 10/325MG TAB PO PRN (21:45)
[2019-11-20 22:00] VITALS: BP 141/68
[2019-11-20] MEDS: MORPHINE SULF INJ 2 MG/ML SYRINGE 1ML IV PRN (22:30)
[2019-11-21] MEDS: MORPHINE SULF INJ 2 MG/ML SYRINGE 1ML IV PRN ×3 (02:21→12:49)
[2019-11-21 05:00] VITALS: BP 93/59
[2019-11-21 05:25] LABS: Basophils # (auto) 0 10 ^3/uL (0-0.2); Basophils % (auto) 1.3 % (0.0-2.0); Eosinophils # (auto) 0.2 10 ^3/uL (0-0.8); Eosinophils % (auto) 4.9 % (0.0-7.0); Hematocrit 38.8 % (36.0-46.0); Hemoglobin 12.7 g/dL (12.2-16.2); Lymphocytes # (auto) 1.9 10 ^3/uL (0.4-5.4); Lymphocytes % (auto) 51.5 % (10.0-50.0); Mean Corpuscular Hgb Conc. 32.7 g/dL (32.0-36.0); Mean Corpuscular Volume 91.9 fL (80.0-100.0); Monocytes # (auto) 0.4 10 ^3/uL (0-1.3); Monocytes % (auto) 11.7 % (0.0-12.0); Neutrophils # (auto) 1.1 10 ^3/uL (1.6-8.6); Neutrophils % (auto) 30.6 % (37.0-80.0); Nucleated Red Blood Cells % 0.1 %; Platelet Count (auto) 225 10^3/uL (140-450); Red Blood Cells 4.23 10^6/uL (4.0-5.20); Red Cell Distribution Width 13.8 % (11.8-14.3); White Blood Cell 3.6 10^3/uL (4.4-10.8)
[2019-11-21 05:40] LABS: Albumin 3.3 g/dL (3.4-5.0); Anion Gap 5 (5-15); Blood Urea Nitrogen 15 mg/dL (7-18); Calcium 8.4 mg/dL (8.5-10.1); Carbon Dioxide 28 mmol/L (21-32); Chloride 108 mmol/L (98-107); Glucose 84 mg/dL (74-106); Potassium 4.1 mmol/L (3.5-5.1); Sodium 141 mmol/L (136-145)
[2019-11-21 05:45] LABS: Alanine Aminotransferase 22 U/L (13-56); Alkaline Phosphatase 106 U/L (45-117); Aspartate Aminotransferase 22 U/L (15-37); BUN/Creatinine Ratio 17.6; Bilirubin, Total 0.3 mg/dL (0.2-1.0); GFR African American 87 mL/min; GFR Non-African American 72 mL/min; Total Protein 6.4 g/dL (6.4-8.2)
[2019-11-21 09:00] VITALS: BP 103/53
[2019-11-21] MEDS ORDERED: HCTZ 25 MG TAB PO ONE (10:00)
[2019-11-21] MEDS: LISINOPRIL 20 MG TAB PO SCH (10:00)
[2019-11-21] MEDS: HCTZ 25 MG TAB PO SCH (10:00)
[2019-11-21] MEDS ORDERED: levETIRAcetam 500 MG TAB PO ONE (10:45)
[2019-11-21] MEDS ORDERED: ZOLPIDEM TARTRATE 5 MG TAB PO PRN (10:45)
[2019-11-21 13:00] VITALS: BP 108/57
[2019-11-21] MEDS: MORPHINE SULFATE 4 MG/ML SYR/VIAL IV PRN ×2 (15:14→22:34)
[2019-11-21] MEDS ORDERED: ALBUTEROL SULF 2.5 MG/0.5ML(0.5%) NEB SOLN NEB PRN (15:15)
[2019-11-21 15:55] VITALS: BP 108/57
[2019-11-21] MEDS: FERROUS SULFATE 325 MG TAB PO SCH (18:01)
--- NOTE | 2019-11-21 19:09 | NUR ---
RT NOTE PT WAS SEEN BY RT FOR PRN HHN TX. PT STATES NO TX NEEDED AT THIS TIME. HR 69, RR 16, BS CLEAR/DIM, POX 93% ON ROOM AIR. CONT ORDERED Addendum: 11/21/19 at 1920 by Beth Avilez RT Amended: Links added.
[2019-11-21 20:30] VITALS: BP 138/71
[2019-11-21 22:00] VITALS: BP 104/63
[2019-11-21] MEDS ORDERED: PRAMIPEXOLE DIHYDROCHLORIDE MO 0.25 MG TAB PO SCH (22:00)
[2019-11-21] MEDS: levETIRAcetam 500 MG TAB PO SCH (22:35)
[2019-11-21] MEDS: POTASSIUM CHL 10 Meq TABLET PO SCH (22:35)
[2019-11-21] MEDS: ISOSORBIDE MONONITRATE IR 20 MG TAB PO SCH (23:04)
[2019-11-22 05:00] VITALS: BP 99/59
[2019-11-22 06:31] LABS: Basophils # (auto) 0 10 ^3/uL (0-0.2); Basophils % (auto) 1.2 % (0.0-2.0); Eosinophils # (auto) 0.1 10 ^3/uL (0-0.8); Eosinophils % (auto) 1.9 % (0.0-7.0); Hematocrit 37.8 % (36.0-46.0); Hemoglobin 12.3 g/dL (12.2-16.2); Lymphocytes # (auto) 1.2 10 ^3/uL (0.4-5.4); Mean Corpuscular Hemoglobin 29.9 pg (28.0-32.0); Mean Corpuscular Hgb Conc. 32.5 g/dL (32.0-36.0); Monocytes # (auto) 0.3 10 ^3/uL (0-1.3); Monocytes % (auto) 7.6 % (0.0-12.0); Neutrophils % (auto) 55.3 % (37.0-80.0); Nucleated Red Blood Cells % 0.1 %; Platelet Count (auto) 247 10^3/uL (140-450); Red Blood Cells 4.11 10^6/uL (4.0-5.20); Red Cell Distribution Width 13.8 % (11.8-14.3); White Blood Cell 3.6 10^3/uL (4.4-10.8)
[2019-11-22 06:52] LABS: Albumin 3.2 g/dL (3.4-5.0); Calcium 8.5 mg/dL (8.5-10.1); Potassium 4.4 mmol/L (3.5-5.1)
[2019-11-22 06:54] LABS: BUN/Creatinine Ratio 17.9
[2019-11-22 07:07] LABS: Bilirubin, Total 0.3 mg/dL (0.2-1.0); Total Protein 6.4 g/dL (6.4-8.2)
--- NOTE | 2019-11-22 07:35 | NUR ---
Opening shift note Assumed care of patient from NOC RN. Patient is AOx4, no s/s of distress or SOB noted. Bed is in lowest locked position call light is within reach and side rails are up x2. Updated patient on plan of care and patient verbalized understanding. Will continue to monitor Q1hr and PRN.
[2019-11-22 09:00] VITALS: BP 103/68
[2019-11-22] MEDS: FERROUS SULFATE 325 MG TAB PO SCH (09:07)
[2019-11-22] MEDS: POTASSIUM CHL 10 Meq TABLET PO SCH (09:08)
[2019-11-22] MEDS: ISOSORBIDE MONONITRATE IR 20 MG TAB PO SCH (09:09)
[2019-11-22] MEDS: HCTZ 25 MG TAB PO SCH (09:09)
[2019-11-22] MEDS: LISINOPRIL 20 MG TAB PO SCH (09:10)
[2019-11-22] MEDS: levETIRAcetam 500 MG TAB PO SCH (09:26)
[2019-11-22] MEDS: MORPHINE SULFATE 4 MG/ML SYR/VIAL IV PRN (09:27)
--- NOTE | 2019-11-22 09:45 | NUR ---
Physician Rounding Dr. Vicente at bedside, updated MD on patient status. New orders received will follow through, will continue care.
[2019-11-22] MEDS ORDERED: PANTOPRAZOLE 40 MG TAB PO SCH (10:00)
[2019-11-22] MEDS ORDERED: CYANOCOBALAMIN 500 MCG TAB PO SCH (10:00)
[2019-11-22] MEDS ORDERED: CHOLECALCIFEROL (VITD3) 1,000UNIT=25mCg TAB PO SCH (10:00)
[2019-11-22] MEDS ORDERED: GABAPENTIN 300 MG CAP PO SCH (10:00)
[2019-11-22] MEDS ORDERED: MAGNESIUM OXIDE 400 MG TAB PO SCH (10:00)
[2019-11-22] MEDS ORDERED: CLOPIDOGREL BISULFATE 75 MG TAB PO SCH (10:00)
[2019-11-22] MEDS ORDERED: LORATADINE 10 MG TAB PO SCH (10:00)
[2019-11-22] MEDS ORDERED: ASPirin-EC 81 mg tab PO SCH (10:00)
--- NOTE | 2019-11-22 10:17 | NUR ---
Called Called Dr. Kline, left message with retail center receptionist. Awaiting call back.
--- NOTE | 2019-11-22 11:52 | NUR ---
Respiratory note: ASSESSED PT FOR PRN TX.PT WAS AWAKE AND ALERT, NO RESP DISTRESS NOTED. HR 66, RR 16, SPO2 94% ON ROOM AIR. BS ARE CLEAR ON THE RIGHT, DIMINISHED ON LEFT. NO INDICATION FOR TX AT THIS TIME. PT KNOWS TO HAVE RT PAGED IF TX IS NEEDED.
--- NOTE | 2019-11-22 11:52 | NUR ---
Received call from physician Received call back from Dr. Kline, per MD patient is clear for D/C. Will follow through with D/C.
[2019-11-22 12:48] VITALS: BP 93/67
[2019-11-22 13:00] VITALS: BP 113/64
--- NOTE | 2019-11-22 15:10 | NUR ---
Discharge note Discharge instructions given as ordered. Encourage to follow up with PMD as instructed. All questions and concerns addressed. Patient verbalized understanding. IV removed with catheter intact, pressure dressing applied. Telemetry unit returned to ICU. Patient taken to vehicle via wheelchair with all personal belongings, accompanied by staff member. No distress noted at time of departure.
== END 2019-11-22 15:10 | disposition home or self-care (01) | DRG 303 ==
LOC: ER 10:43 → TELE 10:44 → TELE-WESTW 14:50
PROVIDERS: ADMIT Internal Medicine; ATTEND Internal Medicine
DX: I25.110 Atherosclerotic heart disease of native coronary artery with unstable angina pectoris (principal); E11.9 Type 2 diabetes mellitus without complications; I10 Essential (primary) hypertension; E66.9 Obesity, unspecified; Z68.36 Body mass index [BMI] 36.0-36.9, adult; J45.909 Unspecified asthma, uncomplicated; E78.5 Hyperlipidemia, unspecified; G40.909 Epilepsy, unspecified, not intractable, without status epilepticus; F41.9 Anxiety disorder, unspecified; F32.9 Major depressive disorder, single episode, unspecified; Z90.710 Acquired absence of both cervix and uterus; Z95.0 Presence of cardiac pacemaker; Z86.73 Personal history of transient ischemic attack (TIA), and cerebral infarction without residual deficits; Z83.3 Family history of diabetes mellitus; Z88.4 Allergy status to anesthetic agent; Z88.1 Allergy status to other antibiotic agents; Z88.8 Allergy status to other drugs, medicaments and biological substances; Z91.018 Allergy to other foods; I25.2 Old myocardial infarction; Z90.49 Acquired absence of other specified parts of digestive tract; Z79.899 Other long term (current) drug therapy; Z21 Asymptomatic human immunodeficiency virus [HIV] infection status
CPT/HCPCS: 36415; 71045; 80053; 81001; 84443; 84484; 85025; 85379; 85610; 85730; 87081; 93005; 94640; G0378; J2405

== ENCOUNTER → 2019-12-31 | Emergency (ER) | payer MEDICARE, MEDICAID ==
[~2019-12-31] VITALS: Ht 154.9 cm; Wt 81.6 kg
[~2019-12-31] MED LIST changes: +ARIP10TA29 PO; -ASPI-231 PO; +ASPI-498 PO; -CHOL20007 PO; +CHOL500023 PO; +CYAN100042 PO; -DIVA250T51 PO; +DIVA500T13 PO; +HYDROcodone-ACET 10/325MG TAB PO ONE; +ISO20T PO; +LEVE100020 PO; -LEVE500T22 PO; +MECL12.514 PO; +PANT40T PO; +POTA10TA32 PO; -POTA10TA51 PO; +PRAM0.12 PO; -PRAM0.252 PO; +SODIUM CHLORIDE 0.9% 500 ML IV ONE; +TIZA2CAP7 PO; +levETIRAcetam 500 MG TAB PO ONE
[2019-12-31 15:27] LABS: Basophils # (auto) 0.1 10 ^3/uL (0-0.2); Basophils % (auto) 1.4 % (0.0-2.0); Eosinophils # (auto) 0.1 10 ^3/uL (0-0.8); Eosinophils % (auto) 2.7 % (0.0-7.0); Hemoglobin 13.5 g/dL (12.2-16.2); Lymphocytes # (auto) 2.2 10 ^3/uL (0.4-5.4); Lymphocytes % (auto) 45.4 % (10.0-50.0); Mean Corpuscular Hemoglobin 30.2 pg (28.0-32.0); Mean Corpuscular Hgb Conc. 32.9 g/dL (32.0-36.0); Mean Corpuscular Volume 91.8 fL (80.0-100.0); Monocytes # (auto) 0.5 10 ^3/uL (0-1.3); Monocytes % (auto) 9.7 % (0.0-12.0); Neutrophils % (auto) 40.8 % (37.0-80.0); Nucleated Red Blood Cells % 0.1 %; Platelet Count (auto) 252 10^3/uL (140-450); Red Blood Cells 4.47 10^6/uL (4.0-5.20); Red Cell Distribution Width 13.5 % (11.8-14.3); White Blood Cell 4.9 10^3/uL (4.4-10.8)
[2019-12-31 15:44] LABS: Alanine Aminotransferase 16 U/L (13-56); Albumin 3.9 g/dL (3.4-5.0); Anion Gap 3 (5-15); Aspartate Aminotransferase 9 U/L (15-37); BUN/Creatinine Ratio 14.5; Blood Urea Nitrogen 11 mg/dL (7-18); Calcium 9.2 mg/dL (8.5-10.1); Carbon Dioxide 26 mmol/L (21-32); Chloride 110 mmol/L (98-107); GFR African American 99 mL/min; GFR Non-African American 82 mL/min; Glucose 95 mg/dL (74-106); Potassium 4.5 mmol/L (3.5-5.1); Sodium 139 mmol/L (136-145)
[2019-12-31 15:49] LABS: Alkaline Phosphatase 112 U/L (45-117); Bilirubin, Total 0.3 mg/dL (0.2-1.0); Total Protein 7.1 g/dL (6.4-8.2)
[2019-12-31 15:50] VITALS: BP 125/54
== END | disposition home or self-care (01) ==
LOC: ER 14:55
DX: R56.9 Unspecified convulsions (principal); E78.5 Hyperlipidemia, unspecified; I25.10 Atherosclerotic heart disease of native coronary artery without angina pectoris; I12.9 Hypertensive chronic kidney disease with stage 1 through stage 4 chronic kidney disease, or unspecified chronic kidney disease; E11.22 Type 2 diabetes mellitus with diabetic chronic kidney disease; N18.9 Chronic kidney disease, unspecified; Z90.49 Acquired absence of other specified parts of digestive tract; Z90.710 Acquired absence of both cervix and uterus
CPT/HCPCS: 36415; 80053; 84484; 85025; 93005; 99284; J1953; J7060

== ENCOUNTER 2020-01-19 17:30 | Emergency (ER) | payer MEDICARE, MEDICAID ==
[~2020-01-19] VITALS: Ht 154.9 cm; Wt 83.9 kg
[~2020-01-19 17:30] MED LIST changes: -HYDROcodone-ACET 10/325MG TAB PO ONE; -SODIUM CHLORIDE 0.9% 500 ML IV ONE; -levETIRAcetam 500 MG TAB PO ONE
[2020-01-19 17:42] VITALS: BP 113/72
== END 2020-01-19 21:04 | disposition home or self-care (01) ==
LOC: ER 17:30
DX: G40.909 Epilepsy, unspecified, not intractable, without status epilepticus (principal); J06.9 Acute upper respiratory infection, unspecified; R50.9 Fever, unspecified; J44.9 Chronic obstructive pulmonary disease, unspecified; I25.10 Atherosclerotic heart disease of native coronary artery without angina pectoris; E78.5 Hyperlipidemia, unspecified; F41.9 Anxiety disorder, unspecified; F32.9 Major depressive disorder, single episode, unspecified; I25.2 Old myocardial infarction; I12.9 Hypertensive chronic kidney disease with stage 1 through stage 4 chronic kidney disease, or unspecified chronic kidney disease; E11.22 Type 2 diabetes mellitus with diabetic chronic kidney disease; N18.9 Chronic kidney disease, unspecified; Z95.5 Presence of coronary angioplasty implant and graft; Z95.0 Presence of cardiac pacemaker; Z90.49 Acquired absence of other specified parts of digestive tract; Z98.890 Other specified postprocedural states; Z90.710 Acquired absence of both cervix and uterus; Z20.828 Contact with and (suspected) exposure to other viral communicable diseases
CPT/HCPCS: 36415; 71045; 87426

== ENCOUNTER 2020-02-06 16:48 | Emergency (ER) | payer MEDICARE, MEDICAID ==
[~2020-02-06] VITALS: Ht 154.9 cm; Wt 74.8 kg
[2020-02-06] MEDS ORDERED: ASPirin 81 mg TAB PO ONE (17:15)
[2020-02-06] MEDS ORDERED: HYDROcodone-ACET 10/325MG TAB PO ONE (17:15)
[2020-02-06 18:16] LABS: Basophils # (auto) 0 10 ^3/uL (0-0.2); Basophils % (auto) 0.6 % (0.0-2.0); Eosinophils # (auto) 0.3 10 ^3/uL (0-0.8); Eosinophils % (auto) 3.1 % (0.0-7.0); Hematocrit 40.7 % (36.0-46.0); Hemoglobin 13.3 g/dL (12.2-16.2); Lymphocytes # (auto) 1.6 10 ^3/uL (0.4-5.4); Lymphocytes % (auto) 19.6 % (10.0-50.0); Mean Corpuscular Hemoglobin 30.2 pg (28.0-32.0); Mean Corpuscular Hgb Conc. 32.8 g/dL (32.0-36.0); Mean Corpuscular Volume 92.1 fL (80.0-100.0); Monocytes # (auto) 0.7 10 ^3/uL (0-1.3); Monocytes % (auto) 8.4 % (0.0-12.0); Neutrophils # (auto) 5.6 10 ^3/uL (1.6-8.6); Neutrophils % (auto) 68.3 % (37.0-80.0); Platelet Count (auto) 256 10^3/uL (140-450); Red Blood Cells 4.42 10^6/uL (4.0-5.20); Red Cell Distribution Width 14.4 % (11.8-14.3); White Blood Cell 8.1 10^3/uL (4.4-10.8)
[2020-02-06 18:33] LABS: Alanine Aminotransferase 14 U/L (13-56); Albumin 3.8 g/dL (3.4-5.0); Anion Gap 6 (5-15); Aspartate Aminotransferase 13 U/L (15-37); BUN/Creatinine Ratio 13.5; Blood Urea Nitrogen 12 mg/dL (7-18); Calcium 9.1 mg/dL (8.5-10.1); Carbon Dioxide 27 mmol/L (21-32); Chloride 106 mmol/L (98-107); GFR African American 83 mL/min; GFR Non-African American 68 mL/min; Glucose 91 mg/dL (74-106); Potassium 4.2 mmol/L (3.5-5.1); Sodium 139 mmol/L (136-145)
[2020-02-06 18:38] LABS: Alkaline Phosphatase 125 U/L (45-117); Bilirubin, Total 0.3 mg/dL (0.2-1.0); Total Protein 7.1 g/dL (6.4-8.2)
[2020-02-06 20:28] VITALS: BP 124/70
== END 2020-02-06 19:33 | disposition home or self-care (01) ==
LOC: ER 16:48
DX: S80.02XA Contusion of left knee, initial encounter (principal); S80.01XA Contusion of right knee, initial encounter; R07.89 Other chest pain; M13.88 Other specified arthritis, other site; J45.909 Unspecified asthma, uncomplicated; I25.10 Atherosclerotic heart disease of native coronary artery without angina pectoris; E11.22 Type 2 diabetes mellitus with diabetic chronic kidney disease; I12.9 Hypertensive chronic kidney disease with stage 1 through stage 4 chronic kidney disease, or unspecified chronic kidney disease; N18.9 Chronic kidney disease, unspecified; E78.00 Pure hypercholesterolemia, unspecified; I25.2 Old myocardial infarction; Z95.0 Presence of cardiac pacemaker; Z86.73 Personal history of transient ischemic attack (TIA), and cerebral infarction without residual deficits; Z79.899 Other long term (current) drug therapy; Z79.82 Long term (current) use of aspirin; Z88.5 Allergy status to narcotic agent; Z88.1 Allergy status to other antibiotic agents; Z88.8 Allergy status to other drugs, medicaments and biological substances; W11.XXXA Fall on and from ladder, initial encounter; Y93.89 Activity, other specified; Y92.89 Other specified places as the place of occurrence of the external cause; Y99.8 Other external cause status
CPT/HCPCS: 36415; 70450; 71046; 72125; 73560; 80053; 84484; 85025; 93005

== ENCOUNTER 2020-02-09 10:44 | Inpatient (IN) | payer MEDICARE, MEDICAID ==
[~2020-02-09] VITALS: Ht 154.9 cm; Wt 87.4 kg
[2020-02-09] MEDS ORDERED: MORPHINE SULFATE 4 MG/ML SYR/VIAL IV ONE (11:15)
[2020-02-09] MEDS ORDERED: ONDANSETRON HCL 4 MG/2 ML VIAL IV ONE (11:15)
[2020-02-09 11:59] LABS: Basophils # (auto) 0 10 ^3/uL (0-0.2); Basophils % (auto) 1.1 % (0.0-2.0); Eosinophils # (auto) 0.2 10 ^3/uL (0-0.8); Eosinophils % (auto) 5.2 % (0.0-7.0); Hematocrit 38.1 % (36.0-46.0); Hemoglobin 12.4 g/dL (12.2-16.2); Lymphocytes # (auto) 1.2 10 ^3/uL (0.4-5.4); Lymphocytes % (auto) 29.7 % (10.0-50.0); Mean Corpuscular Hemoglobin 30.3 pg (28.0-32.0); Mean Corpuscular Hgb Conc. 32.4 g/dL (32.0-36.0); Mean Corpuscular Volume 93.5 fL (80.0-100.0); Monocytes # (auto) 0.5 10 ^3/uL (0-1.3); Monocytes % (auto) 12.2 % (0.0-12.0); Neutrophils # (auto) 2.1 10 ^3/uL (1.6-8.6); Neutrophils % (auto) 51.8 % (37.0-80.0); Nucleated Red Blood Cells % 0.1 %; Platelet Count (auto) 244 10^3/uL (140-450); Red Blood Cells 4.08 10^6/uL (4.0-5.20); Red Cell Distribution Width 14.4 % (11.8-14.3)
[2020-02-09 12:11] LABS: Albumin 3.4 g/dL (3.4-5.0); Anion Gap 6 (5-15); Blood Urea Nitrogen 15 mg/dL (7-18); Calcium 8.6 mg/dL (8.5-10.1); Carbon Dioxide 25 mmol/L (21-32); Chloride 110 mmol/L (98-107); Glucose 79 mg/dL (74-106); Potassium 4.3 mmol/L (3.5-5.1); Sodium 141 mmol/L (136-145)
[2020-02-09 12:15] LABS: INR 0.95 (0.9-1.15); Partial Thromboplastin Time 21.7 sec (23.0-31.2)
[2020-02-09 12:16] LABS: Alanine Aminotransferase 12 U/L (13-56); Alkaline Phosphatase 106 U/L (45-117); Aspartate Aminotransferase 13 U/L (15-37); BUN/Creatinine Ratio 21.7; Bilirubin, Total 0.2 mg/dL (0.2-1.0); GFR African American 111 mL/min; GFR Non-African American 92 mL/min; Total Protein 6.3 g/dL (6.4-8.2)
[2020-02-09] MEDS ORDERED: NITROGLYCERIN 0.4 MG SL TAB SL PRN (13:30)
[2020-02-09] MEDS ORDERED: ONDANSETRON HCL 4 MG/2 ML VIAL IV PRN (13:30)
[2020-02-09] MEDS ORDERED: DOCUSATE SOD 100 MG CAP PO PRN (13:30)
[2020-02-09] MEDS ORDERED: IPRATROPIUM BROM 0.5 MG/2.5ML INH SOL NEB ONE (13:30)
[2020-02-09] MEDS ORDERED: ALBUTEROL SULF 2.5 MG/0.5ML(0.5%) NEB SOLN NEB ONE (13:30)
[2020-02-09] MEDS ORDERED: MORPHINE SULF INJ 2 MG/ML SYRINGE 1ML IV PRN (13:30)
[2020-02-09] MEDS ORDERED: ACETAMINOPHEN 325 MG TAB PO PRN (13:30)
[2020-02-09] MEDS ORDERED: FUR20T PO (13:54)
[2020-02-09] MEDS ORDERED: METO25TA93 PO (13:54)
[2020-02-09] MEDS ORDERED: DEXTROSE (50%) 50ML SYRG IV PRN (14:00)
[2020-02-09] MEDS: ACCU-CHEK COMFORT CURVE STRIP VI SCH ×2 (17:00→21:53)
[2020-02-09] MEDS: InsuLIN REG 1unit/0.01ml Soln (100units/ml) SC SCH ×2 (17:00→21:53)
[2020-02-09] MEDS ORDERED: METOPROLOL SUCCINATE XL 50 MG TAB PO SCH (18:00)
--- NOTE | 2020-02-09 19:10 | NUR ---
Opening Shift Note Assumed care of patient from day shift RN, patient awake and alert oriented x4. No S/S of distress/SOB or pain. Instructed on POC and to call for assist PRN, safety measures in place bed in lowest position side rails up x2 and call light with in reach. will continue to monitor for changes Q1hr and PRN.
[2020-02-09 20:00] VITALS: BP 100/77
[2020-02-09] MEDS: FAMOTIDINE 20 MG TAB PO SCH (21:52)
[2020-02-09] MEDS: ENOXAPARIN SOD 80 MG/0.8ML SYRINGE SC SCH (21:52)
[2020-02-09] MEDS: TEMAZEPAM 15 MG CAP PO PRN (21:52)
[2020-02-09 22:00] VITALS: BP 100/77
[2020-02-09] MEDS: HYDROcodone-ACET 5/325MG TAB PO PRN (22:17)
--- NOTE | 2020-02-09 22:17 | NUR ---
Patient complained of 6/10 pain to bilateral lower extremities pain medication administered at this time.
--- NOTE | 2020-02-09 23:17 | NUR ---
reassessed pain Patient states no pain at this time.
[2020-02-10] VITALS (7 sets, daily range): BP systolic 99–127; BP diastolic 67–78
--- NOTE | 2020-02-10 06:30 | NUR ---
Blood sugar 60 patient awake alert and oriented followed protocol.
--- NOTE | 2020-02-10 06:40 | NUR ---
Blood sugar 62 patient awake alert and oriented.
[2020-02-10 06:43] LABS: Basophils # (auto) 0 10 ^3/uL (0-0.2); Basophils % (auto) 0.6 % (0.0-2.0); Eosinophils # (auto) 0.3 10 ^3/uL (0-0.8); Eosinophils % (auto) 8.9 % (0.0-7.0); Hemoglobin 12.7 g/dL (12.2-16.2); Lymphocytes # (auto) 1.7 10 ^3/uL (0.4-5.4); Lymphocytes % (auto) 47.8 % (10.0-50.0); Mean Corpuscular Hgb Conc. 32.6 g/dL (32.0-36.0); Monocytes # (auto) 0.4 10 ^3/uL (0-1.3); Monocytes % (auto) 11.6 % (0.0-12.0); Neutrophils # (auto) 1.1 10 ^3/uL (1.6-8.6); Neutrophils % (auto) 31.1 % (37.0-80.0); Nucleated Red Blood Cells % 0.1 %; Platelet Count (auto) 215 10^3/uL (140-450); Red Blood Cells 4.24 10^6/uL (4.0-5.20); Red Cell Distribution Width 14.3 % (11.8-14.3); White Blood Cell 3.5 10^3/uL (4.4-10.8)
[2020-02-10] MEDS: InsuLIN REG 1unit/0.01ml Soln (100units/ml) SC SCH ×4 (06:52→21:38)
[2020-02-10] MEDS: ACCU-CHEK COMFORT CURVE STRIP VI SCH ×4 (06:52→21:38)
[2020-02-10 06:54] LABS: Potassium 4.5 mmol/L (3.5-5.1)
[2020-02-10 07:03] LABS: Albumin 3.2 g/dL (3.4-5.0); BUN/Creatinine Ratio 26.8; Bilirubin, Total 0.2 mg/dL (0.2-1.0); Calcium 8.6 mg/dL (8.5-10.1); Magnesium 2.4 mg/dL (1.6-2.6); Total Protein 6.1 g/dL (6.4-8.2)
--- NOTE | 2020-02-10 07:45 | NUR ---
Opening Shift Note Assumed patient care from LAYNE Emerson. Patient currently sitting up in bed, no signs of distress at this time. Respirations even and unlabored. Will continue to monitor q1hr and PRN; safety precautions in place.
--- NOTE | 2020-02-10 08:00 | NUR ---
EKG Obtained EKG and placed in chart per Dr. Guzmán request.
--- NOTE | 2020-02-10 09:45 | NUR ---
Off Unit Patient off unit for stress test. Patient has been NPO, no signs of distress at this time.
[2020-02-10] MEDS: ENOXAPARIN SOD 80 MG/0.8ML SYRINGE SC SCH ×2 (10:00→21:35)
[2020-02-10] MEDS ORDERED: METOPROLOL SUCCINATE XL 50 MG TAB PO SCH (10:00)
[2020-02-10] MEDS: CLOPIDOGREL BISULFATE 75 MG TAB PO SCH (10:00)
[2020-02-10] MEDS: FAMOTIDINE 20 MG TAB PO SCH ×2 (10:00→21:35)
[2020-02-10] MEDS ORDERED: FUROSEMIDE 20 MG TAB PO SCH (10:00)
[2020-02-10] MEDS ORDERED: ADENOSINE 74 MG in GIVE UN-DILUTED 0 ML IV ONE (10:30)
[2020-02-10] MEDS: METOPROLOL SUCCINATE XL 50 MG TAB PO SCH (10:30)
--- NOTE | 2020-02-10 11:00 | NUR ---
Patient Returned Patient returned to unit.
--- NOTE | 2020-02-10 12:00 | NUR ---
BG Patient blood glucose currently 51. Patient is asymptomatic at this time. AOx4, no signs of distress. Patient provided with 2 orange juice at this time.
--- NOTE | 2020-02-10 13:33 | NUR ---
Called MD Spoke with Dr. Guzmán. aware of EKG, stress test and echo status. Per Dr. Guzmán, patient may resume diet at this time.
--- NOTE | 2020-02-10 13:40 | NUR ---
BG Reassessed patient blood glucose: currently 52 patient is asymptomatic at this time. Patient provided with juice and lunch. Will reassess.
--- NOTE | 2020-02-10 15:30 | NUR ---
BG Reassessed patient's blood glucose. Currently 89, no signs of distress at this time. Patient is alert and oriented x4. Will continue to monitor q1hr and PRN. Addendum: 02/10/20 at 1701 by KATIE LARES RN RN Patient is AOx4, respirations even and unlabored
[2020-02-10] MEDS: MORPHINE SULFATE 4 MG/ML SYR/VIAL IV PRN ×2 (15:41→20:46)
[2020-02-10] MEDS ORDERED: FUROSEMIDE 20 MG/2 ML VIAL IV ONE (17:00)
--- NOTE | 2020-02-10 17:13 | NUR ---
at Station Dr. Guzmán at station. Reviewed echo and EKG. No new orders at this time.
--- NOTE | 2020-02-10 19:00 | NUR ---
Opening Shift Note Assumed care of patient, awake and alert. No S/S of distress/SOB, patient complains of pain in her legs and generalized chest, will administer pain medication as per protocol and continue to monitor patient. Instructed on POC and to call for assist PRN, will continue to monitor for changes Q1hr and PRN. Patient in the lowest possible position with call light within reach.
[2020-02-10] MEDS: TEMAZEPAM 15 MG CAP PO PRN (21:35)
[2020-02-11 05:00] VITALS: BP 114/70
[2020-02-11] MEDS: MORPHINE SULFATE 4 MG/ML SYR/VIAL IV PRN (05:54)
[2020-02-11] MEDS: InsuLIN REG 1unit/0.01ml Soln (100units/ml) SC SCH ×2 (06:46→11:30)
[2020-02-11] MEDS: ACCU-CHEK COMFORT CURVE STRIP VI SCH ×2 (06:46→11:51)
--- NOTE | 2020-02-11 07:00 | NUR ---
Patient glucose checked, blood sugar at this time read 59mg/dl. Apple juice given to patient, endorsed to day shift to recheck blood sugar as patients hands were cold and not allowing enough blood for a retest. Patient stated that she felt better after the juice.
--- NOTE | 2020-02-11 07:00 | NUR ---
Closing note. Patient endorsed to day shift [place].
--- NOTE | 2020-02-11 07:15 | NUR ---
Opening Shift Note Assumed patient care from NOC RNOlivia. Patient shows no signs of distress at this time. Respirations even and unlabored. Safety precautions in place. Will continue to monitor q1hr and PRN.
[2020-02-11 08:00] VITALS: BP 123/69
--- NOTE | 2020-02-11 08:31 | NUR ---
at Station Dr Guzmán at station. New orders received at this time: patient to stop using aspirin at home and continue with Plavix and Eliquis, new prescription placed in chart.
[2020-02-11] MEDS: FAMOTIDINE 20 MG TAB PO SCH (08:32)
[2020-02-11] MEDS: METOPROLOL SUCCINATE XL 50 MG TAB PO SCH (08:33)
[2020-02-11] MEDS: CLOPIDOGREL BISULFATE 75 MG TAB PO SCH (08:33)
[2020-02-11] MEDS: FUROSEMIDE 20 MG/2 ML VIAL IV SCH ×2 (08:33→10:00)
--- NOTE | 2020-02-11 08:45 | NUR ---
IV Discontinued IV discontinued due to signs of infiltration catheter intact, pressure dressing applied. Patient refusing new IV at this time. Patient educated on need for new IV and risks and benefits, patient verbalized understanding. No signs of distress at this time. Will continue to monitor q1hr and PRN.
[2020-02-11] MEDS ORDERED: APIXABAN 5 MG TAB PO SCH (10:00)
[2020-02-11 11:20] LABS: Basophils # (auto) 0 10 ^3/uL (0-0.2); Basophils % (auto) 0.8 % (0.0-2.0); Eosinophils # (auto) 0.2 10 ^3/uL (0-0.8); Eosinophils % (auto) 6.3 % (0.0-7.0); Hematocrit 44.5 % (36.0-46.0); Hemoglobin 14.3 g/dL (12.2-16.2); Lymphocytes # (auto) 1.5 10 ^3/uL (0.4-5.4); Lymphocytes % (auto) 41.7 % (10.0-50.0); Mean Corpuscular Hemoglobin 30.4 pg (28.0-32.0); Mean Corpuscular Hgb Conc. 32.1 g/dL (32.0-36.0); Mean Corpuscular Volume 94.7 fL (80.0-100.0); Monocytes # (auto) 0.5 10 ^3/uL (0-1.3); Monocytes % (auto) 12.8 % (0.0-12.0); Neutrophils # (auto) 1.4 10 ^3/uL (1.6-8.6); Neutrophils % (auto) 38.4 % (37.0-80.0); Nucleated Red Blood Cells % 0.2 %; Platelet Count (auto) 275 10^3/uL (140-450); Red Cell Distribution Width 14.4 % (11.8-14.3); White Blood Cell 3.7 10^3/uL (4.4-10.8)
[2020-02-11 11:38] LABS: Calcium 9.1 mg/dL (8.5-10.1); Magnesium 2.7 mg/dL (1.6-2.6); Potassium 4.1 mmol/L (3.5-5.1)
[2020-02-11 11:40] LABS: BUN/Creatinine Ratio 24.2
--- NOTE | 2020-02-11 11:53 | NUR ---
Blood Glucose Blood glucose assessed. Patient given yohan crackers, jello and juice. Dr. Castillo notified. Patient is AOx4, no signs of distress at this time. Respirations even and unlabored. Will continue to monitor.
[2020-02-11] MEDS: HYDROcodone-ACET 5/325MG TAB PO PRN (11:54)
[2020-02-11 12:00] VITALS: BP 110/62
--- NOTE | 2020-02-11 13:00 | NUR ---
at Bedside Dr. Castillo at bedside discussing plan of care with patient. Patient to be discharged today.
[2020-02-11 14:35] VITALS: BP 110/62
--- NOTE | 2020-02-11 15:16 | NUR ---
Discharge Discharge instructions given as ordered. Encourage to follow up with PMD as instructed. All questions and concerns addressed. Patient verbalized understanding. Medication reconciliation form completed and copy given to patient. IV removed with catheter intact, pressure dressing applied. Telemetry unit returned to ICU. Patient taken to vehicle via wheelchair with all personal belongings, accompanied by staff and family member. No distress noted at time of departure. Patient provided with all discharge paperwork and appointment information.
== END 2020-02-11 15:16 | disposition home or self-care (01) | DRG 313 ==
LOC: ER 10:44 → TELE 10:45 → WEST WING 17:35 → TELE-WESTW 02-10 02:18
PROVIDERS: ADMIT Nurse Practitioner; ATTEND Internal Medicine
DX: R07.9 Chest pain, unspecified (principal); I48.91 Unspecified atrial fibrillation; F32.9 Major depressive disorder, single episode, unspecified; E66.9 Obesity, unspecified; E11.40 Type 2 diabetes mellitus with diabetic neuropathy, unspecified; E78.5 Hyperlipidemia, unspecified; E11.22 Type 2 diabetes mellitus with diabetic chronic kidney disease; F41.9 Anxiety disorder, unspecified; I12.9 Hypertensive chronic kidney disease with stage 1 through stage 4 chronic kidney disease, or unspecified chronic kidney disease; I25.10 Atherosclerotic heart disease of native coronary artery without angina pectoris; J45.909 Unspecified asthma, uncomplicated; N18.9 Chronic kidney disease, unspecified; Z79.02 Long term (current) use of antithrombotics/antiplatelets; Z79.899 Other long term (current) drug therapy; Z80.1 Family history of malignant neoplasm of trachea, bronchus and lung; Z83.3 Family history of diabetes mellitus; Z86.73 Personal history of transient ischemic attack (TIA), and cerebral infarction without residual deficits; Z95.5 Presence of coronary angioplasty implant and graft; Z98.84 Bariatric surgery status; Z90.710 Acquired absence of both cervix and uterus; Z88.5 Allergy status to narcotic agent; Z88.8 Allergy status to other drugs, medicaments and biological substances; Z90.49 Acquired absence of other specified parts of digestive tract; Z95.0 Presence of cardiac pacemaker; Z82.49 Family history of ischemic heart disease and other diseases of the circulatory system; Z84.1 Family history of disorders of kidney and ureter; Z21 Asymptomatic human immunodeficiency virus [HIV] infection status; Z68.36 Body mass index [BMI] 36.0-36.9, adult
CPT/HCPCS: 36415; 70450; 71045; 71046; 72125; 73560; 78452; 80048; 80053; 82962; 83735; 83880; 84484; 85025; 85610; 85730; 93005; 93017; 93306; 93970; G0378; J0153; J2405

== ENCOUNTER 2020-08-27 12:52 | Inpatient (IN) | payer MEDICARE, MEDICAID ==
[~2020-08-27] VITALS: Ht 157.5 cm; Wt 90.5 kg
[~2020-08-27 12:52] MED LIST changes: +APIX5TAB PO; -ASPI-498 PO; +BACL20TA PO; +BUPR75TA10 PO; -CALC667C PO; +DIVA500T12 PO; -DIVA500T13 PO; -GABA300C10 PO; -ISO20T PO; -LEVE100020 PO; +LEVE750T3 PO; -MAGN400T40 PO; -MECL12.514 PO; +METO25TA93 PO; +PRO625LQ PO; -TIZA2CAP7 PO
[2020-08-27] MEDS ORDERED: NITROGLYCERIN 0.4 MG SL TAB SL ONE (13:15)
[2020-08-27] MEDS ORDERED: ASPirin 81 mg TAB PO ONE (13:15)
[2020-08-27 13:40] LABS: Basophils # (auto) 0 10 ^3/uL (0-0.2); Eosinophils # (auto) 0.1 10 ^3/uL (0-0.8); Eosinophils % (auto) 2.6 % (0.0-7.0); Hematocrit 42.2 % (36.0-46.0); Hemoglobin 14.1 g/dL (12.2-16.2); Lymphocytes % (auto) 42.7 % (10.0-50.0); Mean Corpuscular Hemoglobin 31.1 pg (28.0-32.0); Mean Corpuscular Hgb Conc. 33.4 g/dL (32.0-36.0); Monocytes # (auto) 0.4 10 ^3/uL (0-1.3); Monocytes % (auto) 8.5 % (0.0-12.0); Neutrophils # (auto) 2.1 10 ^3/uL (1.6-8.6); Neutrophils % (auto) 45.2 % (37.0-80.0); Nucleated Red Blood Cells % 0.3 %; Red Blood Cells 4.53 10^6/uL (4.0-5.20); Red Cell Distribution Width 13.4 % (11.8-14.3); White Blood Cell 4.6 10^3/uL (4.4-10.8)
[2020-08-27 13:56] LABS: INR 1.06 (0.9-1.15); Partial Thromboplastin Time 30.4 sec (23.0-31.2)
[2020-08-27 14:00] LABS: Albumin 3.7 g/dL (3.4-5.0); Anion Gap 4 (5-15); Blood Urea Nitrogen 8 mg/dL (7-18); Carbon Dioxide 27 mmol/L (21-32); Chloride 107 mmol/L (98-107); Glucose 86 mg/dL (74-106); Potassium 4.4 mmol/L (3.5-5.1); Sodium 138 mmol/L (136-145)
[2020-08-27 14:06] LABS: Alanine Aminotransferase 17 U/L (13-56); Alkaline Phosphatase 106 U/L (45-117); Aspartate Aminotransferase 14 U/L (15-37); BUN/Creatinine Ratio 10.8; Bilirubin, Total 0.4 mg/dL (0.2-1.0); GFR African American 102 mL/min; GFR Non-African American 84 mL/min; Total Protein 6.9 g/dL (6.4-8.2)
[2020-08-27 14:51] LABS: Urine WBC None Seen /hpf (0 - 5)
[2020-08-27 15:07] LABS: Urine Bacteria FEW /hpf (None Seen); Urine Blood Negative /uL (Negative); Urine Specific Gravity 1.006 (1.001-1.035)
[2020-08-27] MEDS ORDERED: TEMAZEPAM 15 MG CAP PO PRN (18:00)
[2020-08-27] MEDS ORDERED: ACETAMINOPHEN 325 MG TAB PO PRN (18:00)
[2020-08-27] MEDS ORDERED: DOCUSATE SOD 100 MG CAP PO PRN (18:00)
[2020-08-27] MEDS ORDERED: HYDROcodone-ACET 5/325MG TAB PO PRN (18:00)
[2020-08-27] MEDS ORDERED: NITROGLYCERIN 0.4 MG SL TAB SL PRN (18:00)
[2020-08-27] MEDS: ARIPIPRAZOLE 10 MG PO SCH (18:57)
[2020-08-27] MEDS ORDERED: ZOLPIDEM TARTRATE 5 MG TAB PO PRN (19:30)
[2020-08-27 21:00] VITALS: BP 121/58
[2020-08-27 21:28] VITALS: BP 121/58
[2020-08-27] MEDS: APIXABAN 5 MG TAB PO SCH (22:14)
[2020-08-27] MEDS: levETIRAcetam 500 MG TAB PO SCH (22:14)
[2020-08-27] MEDS: PRAMIPEXOLE DIHYDROCHLORIDE MO 0.25 MG TAB PO SCH (22:15)
[2020-08-27] MEDS: buPROPion HCL 75 MG TAB PO SCH (22:15)
[2020-08-27] MEDS: ATORVASTATIN 20 MG TAB PO SCH (22:15)
[2020-08-27] MEDS: FAMOTIDINE 20 MG TAB PO SCH (22:15)
[2020-08-27] MEDS: MORPHINE SULFATE 4 MG/ML SYR/VIAL IV PRN (22:16)
[2020-08-27] MEDS: ZOLPIDEM TARTRATE 5 MG TAB PO PRN (22:52)
[2020-08-28 04:58] VITALS: BP 90/59
[2020-08-28 05:52] LABS: Basophils # (auto) 0.1 10 ^3/uL (0-0.2); Basophils % (auto) 1.1 % (0.0-2.0); Eosinophils # (auto) 0.2 10 ^3/uL (0-0.8); Eosinophils % (auto) 3.7 % (0.0-7.0); Hematocrit 42.6 % (36.0-46.0); Hemoglobin 14.1 g/dL (12.2-16.2); Lymphocytes # (auto) 2.4 10 ^3/uL (0.4-5.4); Lymphocytes % (auto) 52.6 % (10.0-50.0); Mean Corpuscular Hgb Conc. 33.2 g/dL (32.0-36.0); Mean Corpuscular Volume 93.6 fL (80.0-100.0); Monocytes # (auto) 0.4 10 ^3/uL (0-1.3); Monocytes % (auto) 9.3 % (0.0-12.0); Neutrophils # (auto) 1.5 10 ^3/uL (1.6-8.6); Neutrophils % (auto) 33.3 % (37.0-80.0); Nucleated Red Blood Cells % 0.3 %; Red Blood Cells 4.55 10^6/uL (4.0-5.20); Red Cell Distribution Width 13.2 % (11.8-14.3); White Blood Cell 4.6 10^3/uL (4.4-10.8)
[2020-08-28 06:17] LABS: Potassium 4.2 mmol/L (3.5-5.1)
[2020-08-28 06:25] LABS: Albumin 3.4 g/dL (3.4-5.0); BUN/Creatinine Ratio 13.7; Bilirubin, Total 0.7 mg/dL (0.2-1.0); Calcium 8.8 mg/dL (8.5-10.1); Total Protein 6.5 g/dL (6.4-8.2)
[2020-08-28] MEDS: MORPHINE SULFATE 4 MG/ML SYR/VIAL IV PRN ×4 (08:54→22:58)
[2020-08-28] MEDS: buPROPion HCL 75 MG TAB PO SCH ×2 (08:54→21:53)
[2020-08-28] MEDS: APIXABAN 5 MG TAB PO SCH ×2 (08:55→21:52)
[2020-08-28] MEDS: FAMOTIDINE 20 MG TAB PO SCH ×2 (08:55→21:53)
[2020-08-28] MEDS: METOPROLOL SUCCINATE XL 50 MG TAB PO SCH (08:57)
[2020-08-28] MEDS: levETIRAcetam 500 MG TAB PO SCH ×2 (08:59→21:52)
[2020-08-28 09:00] VITALS: BP 110/82
[2020-08-28] MEDS: CLOPIDOGREL BISULFATE 75 MG TAB PO SCH (09:02)
[2020-08-28 13:00] VITALS: BP 99/55
[2020-08-28] MEDS: ONDANSETRON HCL 4 MG/2 ML VIAL IV PRN (13:46)
[2020-08-28 17:00] VITALS: BP 94/47
[2020-08-28] MEDS: ARIPIPRAZOLE 10 MG PO SCH (18:30)
[2020-08-28] MEDS: PRAMIPEXOLE DIHYDROCHLORIDE MO 0.25 MG TAB PO SCH (21:52)
[2020-08-28] MEDS: ATORVASTATIN 20 MG TAB PO SCH (21:52)
[2020-08-28] MEDS: ZOLPIDEM TARTRATE 5 MG TAB PO PRN (22:05)
[2020-08-28 22:27] VITALS: BP 93/50
[2020-08-29 05:00] VITALS: BP 95/66
[2020-08-29 09:00] VITALS: BP 110/74
[2020-08-29] MEDS: MORPHINE SULFATE INJECTION 2 MG/ML SYRG IV PRN ×2 (09:25→13:31)
[2020-08-29] MEDS: levETIRAcetam 500 MG TAB PO SCH (09:26)
[2020-08-29] MEDS: APIXABAN 5 MG TAB PO SCH (09:26)
[2020-08-29] MEDS: FAMOTIDINE 20 MG TAB PO SCH (09:27)
[2020-08-29] MEDS: CLOPIDOGREL BISULFATE 75 MG TAB PO SCH (09:27)
[2020-08-29] MEDS: METOPROLOL SUCCINATE XL 50 MG TAB PO SCH (09:27)
[2020-08-29] MEDS: buPROPion HCL 75 MG TAB PO SCH (09:28)
[2020-08-29] MEDS: ONDANSETRON HCL 4 MG/2 ML VIAL IV PRN (10:11)
[2020-08-29 10:43] VITALS: BP 110/74
[2020-08-29 13:00] VITALS: BP 101/69
[2020-08-29 16:54] VITALS: BP 104/49
[2020-08-29] MEDS: ARIPIPRAZOLE 10 MG PO SCH (17:30)
[2020-10-05] MEDS ORDERED: METH750T22 PO (16:24)
[2020-10-05] MEDS ORDERED: GABA300C10 PO (16:24)
[2020-10-05] MEDS ORDERED: NITR0.4S29 SL (16:24)
[2020-10-05] MEDS ORDERED: ALBU108A14 IN (16:24)
[2020-10-05] MEDS ORDERED: ZINC100T5 PO (16:24)
== END 2020-08-29 18:15 | disposition home or self-care (01) | DRG 303 ==
LOC: EDBD 12:52 → ER 12:52 → TELE 17:50 → TELE-WESTW 20:30
PROVIDERS: ADMIT Nurse Practitioner; ATTEND Nurse Practitioner
DX: I25.110 Atherosclerotic heart disease of native coronary artery with unstable angina pectoris (principal); Z20.822 Contact with and (suspected) exposure to COVID-19; B19.20 Unspecified viral hepatitis C without hepatic coma; K74.60 Unspecified cirrhosis of liver; E66.9 Obesity, unspecified; E78.00 Pure hypercholesterolemia, unspecified; J45.909 Unspecified asthma, uncomplicated; F41.9 Anxiety disorder, unspecified; I48.0 Paroxysmal atrial fibrillation; E78.5 Hyperlipidemia, unspecified; G89.29 Other chronic pain; M54.5 Low back pain; N18.9 Chronic kidney disease, unspecified; F32.9 Major depressive disorder, single episode, unspecified; Z88.6 Allergy status to analgesic agent; Z88.1 Allergy status to other antibiotic agents; Z88.5 Allergy status to narcotic agent; Z88.8 Allergy status to other drugs, medicaments and biological substances; Z91.018 Allergy to other foods; Z68.35 Body mass index [BMI] 35.0-35.9, adult; Z79.899 Other long term (current) drug therapy; I25.2 Old myocardial infarction; Z86.73 Personal history of transient ischemic attack (TIA), and cerebral infarction without residual deficits; Z90.710 Acquired absence of both cervix and uterus; Z80.51 Family history of malignant neoplasm of kidney; Z82.49 Family history of ischemic heart disease and other diseases of the circulatory system; Z83.3 Family history of diabetes mellitus; Z90.49 Acquired absence of other specified parts of digestive tract; Z90.89 Acquired absence of other organs; Z95.0 Presence of cardiac pacemaker; Z79.01 Long term (current) use of anticoagulants; Z87.891 Personal history of nicotine dependence; Z80.1 Family history of malignant neoplasm of trachea, bronchus and lung; Z98.84 Bariatric surgery status; Z98.61 Coronary angioplasty status; I12.9 Hypertensive chronic kidney disease with stage 1 through stage 4 chronic kidney disease, or unspecified chronic kidney disease
CPT/HCPCS: 36415; 71045; 80053; 81001; 83880; 84484; 85025; 85610; 85730; 87426; 93005; 93306; G0378; J2405

== ENCOUNTER 2020-10-08 08:33 | Day surgery (SDC) | payer MEDICARE, MEDICAID ==
[2020-10-05 14:29] LABS: Urine WBC None Seen /hpf (0 - 5)
[2020-10-05 14:35] LABS: Basophils # (auto) 0.1 10 ^3/uL (0-0.2); Basophils % (auto) 1.4 % (0.0-2.0); Eosinophils # (auto) 0.1 10 ^3/uL (0-0.8); Eosinophils % (auto) 1.1 % (0.0-7.0); Hematocrit 44.1 % (36.0-46.0); Hemoglobin 14.5 g/dL (12.2-16.2); Lymphocytes # (auto) 2.1 10 ^3/uL (0.4-5.4); Lymphocytes % (auto) 38.4 % (10.0-50.0); Mean Corpuscular Hemoglobin 30.2 pg (28.0-32.0); Mean Corpuscular Hgb Conc. 32.8 g/dL (32.0-36.0); Mean Corpuscular Volume 92.2 fL (80.0-100.0); Monocytes # (auto) 0.4 10 ^3/uL (0-1.3); Monocytes % (auto) 8.1 % (0.0-12.0); Neutrophils # (auto) 2.7 10 ^3/uL (1.6-8.6); Nucleated Red Blood Cells % 0.1 %; Platelet Count (auto) 266 10^3/uL (140-450); Red Blood Cells 4.78 10^6/uL (4.0-5.20); Red Cell Distribution Width 13.3 % (11.8-14.3); White Blood Cell 5.4 10^3/uL (4.4-10.8)
[2020-10-05 14:46] LABS: Partial Thromboplastin Time 26.5 sec (23.0-31.2); Urine Bacteria NONE SEEN /hpf (None Seen); Urine Blood Negative /uL (Negative); Urine Specific Gravity 1.009 (1.001-1.035)
[2020-10-05 15:03] LABS: Albumin 4.2 g/dL (3.4-5.0); Calcium 9.4 mg/dL (8.5-10.1); Potassium 4.2 mmol/L (3.5-5.1)
[2020-10-05 15:07] LABS: BUN/Creatinine Ratio 10.7; Bilirubin, Total 0.4 mg/dL (0.2-1.0); Total Protein 7.4 g/dL (6.4-8.2)
[~2020-10-08] VITALS: Ht 154.9 cm; Wt 90.7 kg
[~2020-10-08 08:33] MED LIST changes: +ALBU108A14 IN; -BACL20TA PO; -BUPR75TA10 PO; +BUPR75TA9 PO; -DIVA500T12 PO; +GABA300C10 PO; -LEVE750T3 PO; +METH750T22 PO; +NITR0.4S29 SL; -PRO625LQ PO; +ZINC100T5 PO
[2020-10-08] MEDS ORDERED: LIDOCAINE VISCOUS 2% 15ML UD ONE (09:33)
[2020-10-08] MEDS ORDERED: MEPERIDINE HCL (25 MG/ML) 1ML VIAL ONE (09:38)
[2020-10-08] MEDS ORDERED: DexAMETHasone SOD PHOS 10MG/1ML VIAL INJ ONE (09:39)
[2020-10-08] MEDS ORDERED: PROPOFOL 10 MG/ML 20 ML IV ONE (09:39)
[2020-10-08] MEDS ORDERED: MIDAZOLAM HCL 1MG/1ML-2 ML VIAL ONE (09:39)
[2020-10-08] MEDS ORDERED: fentaNYL CITRATE 100 MCG/2 ML VL ONE (09:39)
[2020-10-08] MEDS ORDERED: ePHEDrine SULFATE 50 MG/ML AMP IV PRN (10:30)
[2020-10-08] MEDS ORDERED: LABETALOL HCL 5 MG/ML 4ML SYRINGE IV PRN (10:30)
[2020-10-08] MEDS ORDERED: MIDAZOLAM HCL 1MG/1ML-2 ML VIAL IV PRN (10:30)
[2020-10-08] MEDS ORDERED: ONDANSETRON HCL 4 MG/2 ML VIAL IV PRN (10:30)
[2020-10-08 10:40] VITALS: BP 123/80
== END 2020-10-08 11:00 | disposition home or self-care (01) ==
LOC: GI 08:33
PROVIDERS: ATTEND Internal Medicine Gastroenterology
DX: K92.1 Melena (principal); K63.5 Polyp of colon; K31.89 Other diseases of stomach and duodenum; K29.70 Gastritis, unspecified, without bleeding; I10 Essential (primary) hypertension; I25.10 Atherosclerotic heart disease of native coronary artery without angina pectoris; I25.2 Old myocardial infarction; E66.9 Obesity, unspecified; E66.01 Morbid (severe) obesity due to excess calories; G47.33 Obstructive sleep apnea (adult) (pediatric); I49.9 Cardiac arrhythmia, unspecified; G40.909 Epilepsy, unspecified, not intractable, without status epilepticus; G89.29 Other chronic pain; I48.91 Unspecified atrial fibrillation; F32.9 Major depressive disorder, single episode, unspecified; F41.9 Anxiety disorder, unspecified; Z80.8 Family history of malignant neoplasm of other organs or systems; F99 Mental disorder, not otherwise specified; Z90.89 Acquired absence of other organs; Z20.822 Contact with and (suspected) exposure to COVID-19; Z68.38 Body mass index [BMI] 38.0-38.9, adult; Z96.89 Presence of other specified functional implants; Z86.19 Personal history of other infectious and parasitic diseases; Z88.8 Allergy status to other drugs, medicaments and biological substances; Z98.84 Bariatric surgery status; Z90.710 Acquired absence of both cervix and uterus; Z91.018 Allergy to other foods; Z88.6 Allergy status to analgesic agent; Z88.5 Allergy status to narcotic agent
CPT/HCPCS: 36415; 43235; 45385; 80053; 81001; 85025; 85610; 85730; J1100; J2175; J2250; J2704; J3010; J7030; U0003

== ENCOUNTER 2020-10-08 20:34 | Emergency (ER) | payer MEDICARE, MEDICAID ==
[~2020-10-08] VITALS: Ht 154.9 cm; Wt 90.7 kg
[2020-10-08 20:35] VITALS: BP 143/85
[2020-10-08 22:18] LABS: Basophils # (auto) 0 10 ^3/uL (0-0.2); Basophils % (auto) 0.2 % (0.0-2.0); Eosinophils # (auto) 0 10 ^3/uL (0-0.8); Hematocrit 41.6 % (36.0-46.0); Hemoglobin 14.3 g/dL (12.2-16.2); Lymphocytes # (auto) 0.9 10 ^3/uL (0.4-5.4); Lymphocytes % (auto) 19.2 % (10.0-50.0); Mean Corpuscular Hemoglobin 31.2 pg (28.0-32.0); Mean Corpuscular Hgb Conc. 34.4 g/dL (32.0-36.0); Mean Corpuscular Volume 90.9 fL (80.0-100.0); Monocytes # (auto) 0.1 10 ^3/uL (0-1.3); Monocytes % (auto) 2.2 % (0.0-12.0); Neutrophils # (auto) 3.5 10 ^3/uL (1.6-8.6); Neutrophils % (auto) 78.4 % (37.0-80.0); Nucleated Red Blood Cells % 0.1 %; Platelet Count (auto) 249 10^3/uL (140-450); Red Blood Cells 4.58 10^6/uL (4.0-5.20); Red Cell Distribution Width 13.3 % (11.8-14.3); White Blood Cell 4.4 10^3/uL (4.4-10.8)
[2020-10-08 22:31] LABS: BUN/Creatinine Ratio 12.5; Potassium 4.3 mmol/L (3.5-5.1)
[2020-10-08 22:34] LABS: Bilirubin, Total 0.4 mg/dL (0.2-1.0); Total Protein 7.5 g/dL (6.4-8.2)
== END 2020-10-08 22:43 | disposition left against medical advice (07) ==
LOC: ER 20:34
DX: R10.84 Generalized abdominal pain (principal); R11.2 Nausea with vomiting, unspecified; J45.909 Unspecified asthma, uncomplicated; I12.9 Hypertensive chronic kidney disease with stage 1 through stage 4 chronic kidney disease, or unspecified chronic kidney disease; N18.9 Chronic kidney disease, unspecified; R42 Dizziness and giddiness; E78.5 Hyperlipidemia, unspecified; Z90.49 Acquired absence of other specified parts of digestive tract; Z90.710 Acquired absence of both cervix and uterus; Z88.6 Allergy status to analgesic agent
CPT/HCPCS: 36415; 80053; 83605; 83690; 85025

== ENCOUNTER 2020-11-01 12:05 | Emergency (ER) | payer MEDICARE, MEDICAID ==
[~2020-11-01] VITALS: Ht 154.9 cm; Wt 68.0 kg
[2020-11-01 13:06] LABS: Albumin 3.4 g/dL (3.4-5.0); Calcium 8.6 mg/dL (8.5-10.1); Potassium 4.1 mmol/L (3.5-5.1)
[2020-11-01 13:10] LABS: BUN/Creatinine Ratio 5.6; Bilirubin, Total 0.3 mg/dL (0.2-1.0)
[2020-11-01 13:14] LABS: Urine Bacteria FEW /hpf (None Seen); Urine Blood Negative /uL (Negative); Urine Mucus FEW (None Seen); Urine Specific Gravity 1.007 (1.001-1.035); Urine WBC 25 /hpf (0 - 5)
[2020-11-01] MEDS ORDERED: IOHEXOL 300 MG/ML 100ML BOTTLE IJ ONE (13:25)
[2020-11-01] MEDS ORDERED: SODIUM CHLORIDE 0.9% 500 ML IVB ONE (13:30)
[2020-11-01] MEDS ORDERED: SODIUM CHLORIDE 0.9% 1,000 ML IV ONE (13:30)
[2020-11-01] MEDS ORDERED: HYDROmorphone HCL 2 MG/ML VL IV ONE (13:30)
[2020-11-01 14:13] LABS: Basophils # (auto) 0.1 10 ^3/uL (0-0.2); Basophils % (auto) 1.3 % (0.0-2.0); Eosinophils # (auto) 0.1 10 ^3/uL (0-0.8); Eosinophils % (auto) 1.7 % (0.0-7.0); Hematocrit 38.3 % (36.0-46.0); Hemoglobin 12.9 g/dL (12.2-16.2); Lymphocytes # (auto) 1.1 10 ^3/uL (0.4-5.4); Lymphocytes % (auto) 20.3 % (10.0-50.0); Mean Corpuscular Hemoglobin 30.8 pg (28.0-32.0); Mean Corpuscular Hgb Conc. 33.8 g/dL (32.0-36.0); Monocytes # (auto) 0.5 10 ^3/uL (0-1.3); Monocytes % (auto) 10.4 % (0.0-12.0); Neutrophils # (auto) 3.5 10 ^3/uL (1.6-8.6); Neutrophils % (auto) 66.3 % (37.0-80.0); Red Blood Cells 4.21 10^6/uL (4.0-5.20); Red Cell Distribution Width 13.1 % (11.8-14.3); White Blood Cell 5.2 10^3/uL (4.4-10.8)
[2020-11-01] MEDS ORDERED: cefTRIAXone 1GM/50ML D5W 50 ML IV ONE (14:45)
[2020-11-01 15:12] LABS: INR 1.03 (0.9-1.15); Partial Thromboplastin Time 28.7 sec (23.0-31.2)
[2020-11-01 18:01] VITALS: BP 104/85
== END 2020-11-01 19:45 | disposition home or self-care (01) ==
LOC: ER 12:05
DX: N39.0 Urinary tract infection, site not specified (principal); K74.69 Other cirrhosis of liver; R10.11 Right upper quadrant pain; E44.1 Mild protein-calorie malnutrition; J45.909 Unspecified asthma, uncomplicated; F41.9 Anxiety disorder, unspecified; I25.10 Atherosclerotic heart disease of native coronary artery without angina pectoris; F32.9 Major depressive disorder, single episode, unspecified; E78.5 Hyperlipidemia, unspecified; I10 Essential (primary) hypertension; I25.2 Old myocardial infarction; Z68.28 Body mass index [BMI] 28.0-28.9, adult; Z86.19 Personal history of other infectious and parasitic diseases; Z88.5 Allergy status to narcotic agent; Z88.6 Allergy status to analgesic agent; Z88.1 Allergy status to other antibiotic agents; Z88.8 Allergy status to other drugs, medicaments and biological substances; Z79.899 Other long term (current) drug therapy; Z95.0 Presence of cardiac pacemaker; Z90.49 Acquired absence of other specified parts of digestive tract; Z98.890 Other specified postprocedural states; Z90.710 Acquired absence of both cervix and uterus
CPT/HCPCS: 36415; 71046; 74176; 80053; 81001; 83690; 83735; 84443; 85049; 85610; 85730; 93005; 96365; 96375; 99285; J0696; J1170; Q9967

== ENCOUNTER 2021-02-03 13:00 | Inpatient (IN) | payer MEDICARE, MEDICAID ==
[~2021-02-03] VITALS: Ht 154.9 cm; Wt 85.0 kg
[~2021-02-03 13:00] MED LIST changes: +BUPR75TA10 PO; -BUPR75TA9 PO
[2021-02-03 14:09] LABS: Basophils # (auto) 0 10 ^3/uL (0-0.2); Basophils % (auto) 0.7 % (0.0-2.0); Eosinophils # (auto) 0.1 10 ^3/uL (0-0.8); Eosinophils % (auto) 1.9 % (0.0-7.0); Hematocrit 43.8 % (36.0-46.0); Hemoglobin 14.3 g/dL (12.2-16.2); Lymphocytes # (auto) 1.6 10 ^3/uL (0.4-5.4); Lymphocytes % (auto) 30.1 % (10.0-50.0); Mean Corpuscular Hemoglobin 30.1 pg (28.0-32.0); Mean Corpuscular Hgb Conc. 32.6 g/dL (32.0-36.0); Mean Corpuscular Volume 92.3 fL (80.0-100.0); Monocytes # (auto) 0.5 10 ^3/uL (0-1.3); Monocytes % (auto) 9.2 % (0.0-12.0); Neutrophils # (auto) 3.2 10 ^3/uL (1.6-8.6); Neutrophils % (auto) 58.1 % (37.0-80.0); Red Blood Cells 4.75 10^6/uL (4.0-5.20); Red Cell Distribution Width 13.5 % (11.8-14.3); White Blood Cell 5.5 10^3/uL (4.4-10.8)
[2021-02-03 14:46] LABS: Albumin 3.8 g/dL (3.4-5.0); Anion Gap 5 (5-15); Blood Urea Nitrogen 10 mg/dL (7-18); Calcium 9.6 mg/dL (8.5-10.1); Carbon Dioxide 25 mmol/L (21-32); Chloride 107 mmol/L (98-107); Glucose 98 mg/dL (74-106); Potassium 4.2 mmol/L (3.5-5.1); Sodium 137 mmol/L (136-145)
[2021-02-03 15:03] LABS: Alanine Aminotransferase 20 U/L (13-56); Alkaline Phosphatase 134 U/L (45-117); Aspartate Aminotransferase 16 U/L (15-37); BUN/Creatinine Ratio 14.3; Bilirubin, Total 0.2 mg/dL (0.2-1.0); GFR African American 109 mL/min; GFR Non-African American 90 mL/min; Total Protein 6.9 g/dL (6.4-8.2)
[2021-02-03] MEDS ORDERED: ONDANSETRON HCL 4 MG/2 ML VIAL IV ONE (15:45)
[2021-02-03] MEDS ORDERED: SODIUM CHLORIDE 0.9% 1,000 ML IV ONE (15:45)
[2021-02-03 16:39] LABS: INR 1.01 (0.9-1.15); Partial Thromboplastin Time 28.5 sec (23.6-33.0)
[2021-02-03] MEDS ORDERED: MORPHINE SULFATE INJECTION 2 MG/ML SYRG ONE (16:52)
[2021-02-03] MEDS ORDERED: MORPHINE SULFATE INJECTION 2 MG/ML SYRG IV ONE (17:00)
[2021-02-03] MEDS ORDERED: diphenhdrAMINE HCL 50 MG/1 ML VL IV ONE (17:15)
[2021-02-03] MEDS ORDERED: ACETAMINOPHEN 325 MG TAB PO PRN (23:30)
[2021-02-03] MEDS ORDERED: DOCUSATE SOD 100 MG CAP PO PRN (23:30)
[2021-02-03] MEDS ORDERED: NITROGLYCERIN 0.4 MG SL TAB SL PRN (23:30)
[2021-02-03] MEDS ORDERED: MORPHINE SULFATE INJECTION 2 MG/ML SYRG IV PRN (23:30)
[2021-02-04] MEDS: TEMAZEPAM 15 MG CAP PO PRN ×2 (00:28→22:12)
[2021-02-04 02:10] VITALS: BP 103/67
[2021-02-04 04:09] LABS: Urine Bacteria NONE SEEN /hpf (None Seen); Urine Blood Negative /uL (Negative); Urine Hyaline Cast FEW /lpf (0 - 2); Urine Mucus FEW (None Seen); Urine Specific Gravity 1.012 (1.001-1.035); Urine WBC 2 /hpf (0 - 5)
[2021-02-04 05:00] VITALS: BP 101/53
[2021-02-04 08:20] LABS: Basophils # (auto) 0 10 ^3/uL (0-0.2); Basophils % (auto) 0.9 % (0.0-2.0); Eosinophils # (auto) 0.1 10 ^3/uL (0-0.8); Eosinophils % (auto) 2.7 % (0.0-7.0); Hematocrit 43.4 % (36.0-46.0); Hemoglobin 14.3 g/dL (12.2-16.2); Lymphocytes # (auto) 2.4 10 ^3/uL (0.4-5.4); Lymphocytes % (auto) 46.3 % (10.0-50.0); Mean Corpuscular Hemoglobin 30.7 pg (28.0-32.0); Mean Corpuscular Hgb Conc. 32.9 g/dL (32.0-36.0); Mean Corpuscular Volume 93.2 fL (80.0-100.0); Monocytes # (auto) 0.5 10 ^3/uL (0-1.3); Monocytes % (auto) 9.1 % (0.0-12.0); Neutrophils # (auto) 2.2 10 ^3/uL (1.6-8.6); Nucleated Red Blood Cells % 0.2 %; Red Blood Cells 4.66 10^6/uL (4.0-5.20); Red Cell Distribution Width 13.4 % (11.8-14.3); White Blood Cell 5.3 10^3/uL (4.4-10.8)
[2021-02-04 08:29] LABS: Albumin 3.6 g/dL (3.4-5.0); Calcium 9.1 mg/dL (8.5-10.1); Potassium 4.4 mmol/L (3.5-5.1)
[2021-02-04 08:32] LABS: BUN/Creatinine Ratio 17.1; Bilirubin, Total 0.3 mg/dL (0.2-1.0); Total Protein 6.8 g/dL (6.4-8.2)
[2021-02-04 09:00] VITALS: BP 91/64
[2021-02-04] MEDS: ZINC SULFATE 220mg CAP or TAB PO SCH (09:36)
[2021-02-04] MEDS ORDERED: ENOXAPARIN SOD 40 MG/0.4 ML SYRINGE SC SCH (10:00)
[2021-02-04] MEDS ORDERED: NITROGLYCERIN 0.4 MG SL TAB SL ONE (10:00)
[2021-02-04] MEDS: HYDROcodone-ACET 10/325MG TAB PO PRN ×2 (12:33→19:45)
[2021-02-04 13:00] VITALS: BP 108/77
[2021-02-04 17:00] VITALS: BP 97/69
[2021-02-04] MEDS: ONDANSETRON HCL 4 MG/2 ML VIAL IV PRN (21:20)
[2021-02-04 22:00] VITALS: BP 106/66
[2021-02-04] MEDS ORDERED: ALBUTEROL SULF HFA 90MCG INH 200DOSE IN SCH (22:00)
[2021-02-04] MEDS: APIXABAN 5 MG TAB PO SCH (22:02)
[2021-02-05] MEDS ORDERED: ALBUTEROL SULF HFA 90MCG INH 200DOSE IN PRN (03:45)
[2021-02-05 05:00] VITALS: BP 94/47
[2021-02-05] MEDS: METHOCARBAMOL 500 MG TAB PO SCH ×2 (06:16→14:11)
[2021-02-05] MEDS: buPROPion HCL 75 MG TAB PO SCH ×2 (06:19→19:25)
[2021-02-05] MEDS: HYDROcodone-ACET 10/325MG TAB PO PRN ×2 (07:52→15:18)
[2021-02-05 09:00] VITALS: BP 107/66
[2021-02-05] MEDS: APIXABAN 5 MG TAB PO SCH (09:10)
[2021-02-05] MEDS: ZINC SULFATE 220mg CAP or TAB PO SCH (09:11)
[2021-02-05] MEDS ORDERED: METOPROLOL SUCCINATE XL 50 MG TAB PO SCH (10:00)
[2021-02-05] MEDS ORDERED: GABAPENTIN 300 MG CAP PO SCH (10:00)
[2021-02-05] MEDS ORDERED: CLOPIDOGREL BISULFATE 75 MG TAB PO SCH (10:00)
[2021-02-05] MEDS ORDERED: FERROUS SULFATE 325mg EC TAB PO SCH (10:00)
[2021-02-05] MEDS ORDERED: METHOCARBAMOL 500 MG TAB PO ONE (10:00)
[2021-02-05] MEDS ORDERED: PANTOPRAZOLE 40 MG TAB PO SCH (10:00)
[2021-02-05] MEDS ORDERED: FUROSEMIDE 20 MG TAB PO SCH (10:00)
[2021-02-05] MEDS ORDERED: CYANOCOBALAMIN 500 MCG TAB PO SCH (10:00)
[2021-02-05] MEDS ORDERED: POTASSIUM CHL 10 Meq TABLET PO SCH (10:00)
[2021-02-05] MEDS ORDERED: LORATADINE 10 MG TAB PO SCH (10:00)
[2021-02-05] MEDS ORDERED: CHOLECALCIFEROL (VITD3) 2,000 UNIT CAP/TAB PO SCH (10:00)
[2021-02-05] MEDS: ONDANSETRON HCL 4 MG/2 ML VIAL IV PRN ×2 (10:12→15:18)
[2021-02-05 13:00] VITALS: BP 111/75
[2021-02-05 16:51] VITALS: BP 108/68
[2021-02-05 19:33] VITALS: BP 107/66
[2021-02-05] MEDS ORDERED: ATORVASTATIN 20 MG TAB PO SCH (22:00)
[2021-02-05] MEDS ORDERED: PRAMIPEXOLE DIHYDROCHLORIDE MO 0.25 MG TAB PO SCH ×2 (22:00)
== END 2021-02-05 20:05 | disposition home or self-care (01) | DRG 313 ==
LOC: EDBD 13:00 → ER 13:00 → EDSEX 13:00 → TELE 23:30 → TELE-WESTW 02-04 02:10
PROVIDERS: ADMIT Internal Medicine; ATTEND Internal Medicine
DX: R07.89 Other chest pain (principal); Z20.822 Contact with and (suspected) exposure to COVID-19; I25.10 Atherosclerotic heart disease of native coronary artery without angina pectoris; J44.9 Chronic obstructive pulmonary disease, unspecified; N18.9 Chronic kidney disease, unspecified; F41.9 Anxiety disorder, unspecified; I12.9 Hypertensive chronic kidney disease with stage 1 through stage 4 chronic kidney disease, or unspecified chronic kidney disease; I48.91 Unspecified atrial fibrillation; F32.A Depression, unspecified; R53.81 Other malaise; Z79.01 Long term (current) use of anticoagulants; Z95.0 Presence of cardiac pacemaker; Z79.899 Other long term (current) drug therapy; Z80.1 Family history of malignant neoplasm of trachea, bronchus and lung; Z80.51 Family history of malignant neoplasm of kidney; Z82.49 Family history of ischemic heart disease and other diseases of the circulatory system; Z83.3 Family history of diabetes mellitus; Z86.73 Personal history of transient ischemic attack (TIA), and cerebral infarction without residual deficits; Z90.710 Acquired absence of both cervix and uterus; Z90.49 Acquired absence of other specified parts of digestive tract; Z98.61 Coronary angioplasty status; Z88.5 Allergy status to narcotic agent; Z88.6 Allergy status to analgesic agent
CPT/HCPCS: 36415; 71045; 80053; 81001; 83735; 83880; 84443; 84484; 85025; 85610; 85730; 87426; 93005; 93306; 96361; 96374; 96375; G0378; J2405

== ENCOUNTER 2021-05-03 17:48 | Emergency (ER) | payer MEDICARE, MEDICAID ==
[~2021-05-03] VITALS: Ht 154.9 cm; Wt 89.8 kg
[2021-05-03 17:49] VITALS: BP 133/75
== END 2021-05-03 19:19 | disposition left against medical advice (07) ==
LOC: ER 17:48
DX: R06.02 Shortness of breath (principal); Z53.21 Procedure and treatment not carried out due to patient leaving prior to being seen by health care provider
CPT/HCPCS: 71045; 93005

== ENCOUNTER 2023-04-20 07:44 | Day surgery (SDC) | payer MEDICARE, OTHER ==
[2023-04-18 12:11] LABS: Basophils # (auto) 0 10 ^3/uL (0-0.2); Basophils % (auto) 0.8 % (0.0-2.0); Eosinophils # (auto) 0.2 10 ^3/uL (0-0.8); Eosinophils % (auto) 4.4 % (0.0-7.0); Hematocrit 40.7 % (36.0-46.0); Hemoglobin 13.3 g/dL (12.2-16.2); Lymphocytes # (auto) 1.6 10 ^3/uL (0.4-5.4); Lymphocytes % (auto) 35.3 % (10.0-50.0); Mean Corpuscular Hemoglobin 30.8 pg (28.0-32.0); Mean Corpuscular Hgb Conc. 32.7 g/dL (32.0-36.0); Mean Corpuscular Volume 94.1 fL (80.0-100.0); Monocytes # (auto) 0.4 10 ^3/uL (0-1.3); Monocytes % (auto) 9.9 % (0.0-12.0); Neutrophils # (auto) 2.2 10 ^3/uL (1.6-8.6); Neutrophils % (auto) 49.6 % (37.0-80.0); Nucleated Red Blood Cells % 0.2 %; Red Blood Cells 4.32 10^6/uL (4.0-5.20); Red Cell Distribution Width 13.6 % (11.8-14.3); White Blood Cell 4.5 10^3/uL (4.4-10.8)
[2023-04-18 12:21] LABS: Urine Bacteria FEW /hpf (None Seen); Urine Blood Negative /uL (Negative); Urine Clarity Clear (Clear); Urine Color Yellow (Yellow); Urine Protein, UAD Negative (Negative); Urine Specific Gravity 1.013 (1.001-1.035); Urine Urobilinogen Normal (Negative); Urine WBC 1 /hpf (0 - 5)
[2023-04-18 12:45] LABS: Partial Thromboplastin Time 21.9 SEC (24.5-34.5); Prothrombin Time 10.5 sec (9.3-11.8)
[2023-04-18 12:46] LABS: Alanine Aminotransferase 10 U/L (7-40); Albumin 4.3 g/dL (3.2-4.8); Alkaline Phosphatase 138 U/L (46-116); Anion Gap 6 (5-15); Aspartate Aminotransferase 10 U/L (13-40); BUN/Creatinine Ratio 11.4 (10.0-20.0); Bilirubin, Total 0.4 mg/dL (0.2-1.0); Blood Urea Nitrogen 10 mg/dL (9-23); Calcium 9.2 mg/dL (8.7-10.4); Carbon Dioxide 27 mmol/L (20-30); Chloride 105 mmol/L (98-107); Glucose 98 mg/dL (74-106); Potassium 4.4 mmol/L (3.5-5.1); Sodium 138 mmol/L (136-145); Total Protein 6.7 g/dL (5.7-8.2)
[~2023-04-20] VITALS: Ht 154.9 cm; Wt 93.0 kg
[~2023-04-20 07:44] MED LIST changes: -BUPR75TA10 PO; +BUPR75TA96 PO; +GABA-1250 PO; -GABA300C10 PO; +METH-1182 PO; -METH750T22 PO; +POTA-228 PO; -POTA10TA32 PO; -SIMV-8 PO; +SIMV20TA20 PO
[2023-04-20] MEDS ORDERED: fentaNYL CITRATE 100 MCG/2 ML VL ONE (08:03)
[2023-04-20] MEDS ORDERED: MIDAZOLAM HCL 2MG/2ML 2ml VIAL (1mg/ml) ONE (08:03)
[2023-04-20] MEDS ORDERED: PROPOFOL 10 MG/ML 20 ML IV ONE (08:06)
[2023-04-20] MEDS ORDERED: DexAMETHasone SOD PHOS 10MG/1ML VIAL INJ ONE (08:06)
[2023-04-20] MEDS ORDERED: LIDOCAINE VISCOUS 2% 15ML UD ONE (08:18)
[2023-04-20 08:36] VITALS: TEMP 97.3; O2SAT 100
[2023-04-20 09:06] VITALS: BP 108/66; PULSE 66; RESP 15; O2SAT 96
== END 2023-04-20 09:25 | disposition home or self-care (01) ==
LOC: GI 07:44
PROVIDERS: ATTEND Internal Medicine Gastroenterology
DX: R10.11 Right upper quadrant pain (principal); K74.60 Unspecified cirrhosis of liver; R11.2 Nausea with vomiting, unspecified; Z98.84 Bariatric surgery status; K29.50 Unspecified chronic gastritis without bleeding
CPT/HCPCS: 36415; 43239; 80053; 81001; 85025; 85610; 85730; J1100; J2250; J2704; J3010; J7030